=== PATIENT | female | born 1980 | race Caucasian/White ===

== ENCOUNTER 2016-11-21 22:24 | Emergency (ER) | payer SELFPAY ==
[~2016-11-21] VITALS: Ht 162.6 cm; Wt 61.6 kg
[2016-11-21 22:24] VITALS: Ht 162.6 cm; Wt 61.6 kg
[~2016-11-21 22:24] MED LIST: ALBU18HF2 INH; ASPI81TA43 PO; CYAN250010 PO; DOXY100C40 PO; IBUP-1724 PO; MULT-37 PO; NAPR250T2 PO; ONDA4TAB4 PO; ONDA4TAB7 PO; PARO30TA PO; TETR-47 BOTH EYES
--- OUTSIDE RECORDS SUMMARY | 2016-11-21 22:30 | XMS REPORT | Continuity of Care Document ---
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 Role Phone TRACI CROOK MD Primary Care Physician [phone] Insurance Providers Payer Name Policy Number Subscriber Name Relationship Self Pay Insurance Chief Complaint and Reason for Visit Chief Complaint Respiratory Problem Reason for Visit [id number] Otitis externa Pleurisy Problems Medical Problems Problem Onset Date Status Anxiety disorder 03/04/2013 Active Attention deficit hyperactivity disorder 03/04/2013 Active Congenital heart disease 03/18/2013 Active Malaise and fatigue 03/18/2013 Active Pharyngitis Unknown Active Bronchitis Unknown Active Dyspnea Unknown Active Malaise Unknown Active Palpitations Unknown Active Neck sprain Unknown Active minor head injury Unknown Active Anxiety disorder Unknown Active Palpitation (heart) Unknown Active Back pain Unknown Active Back pain Unknown Active Bradycardia Unknown Active Chronic neck pain Unknown Active Dizziness Unknown Active Anemia Unknown Active Sick sinus syndrome Unknown Active Dizziness Unknown Active Arrhythmia Unknown Active Sick sinus syndrome Unknown Active Headache Unknown Active Neck pain Unknown Active Headache Unknown Active Hx of sick sinus syndrome Unknown Active Chest wall pain Unknown Active Trapezius muscle strain Unknown Active Malaise Unknown Active Cough Unknown Active Dizzy Unknown Active Chronic neck pain Unknown Active Malaise Unknown Active Dizziness Unknown Active Chest wall pain Unknown Active History of bradycardia Unknown Active Atypical chest pain Unknown Active Epigastric abdominal pain Unknown Active Atypical chest pain Unknown Active Chronic neck pain Unknown Active URI (upper respiratory infection) Unknown Active Otitis externa Unknown Active Pleurisy Unknown Active URI (upper respiratory infection) Unknown Active Medications Medication Dose Route Sig Days/Qty Instructions Order Date Discontinued Date Status Paroxetine Hcl 20 Mg PO DAILY 30 Qty 05/09/13 06/23/13 Discontinued Paroxetine Hcl 20 Mg PO DAILY 30 Qty 06/23/13 07/22/13 Discontinued Paroxetine Hcl 20 Mg PO DAILY 30 Qty 07/22/13 08/15/13 Discontinued Paroxetine Hcl 20 Mg PO DAILY 30 Qty 08/15/13 08/29/13 Discontinued Paroxetine Hcl 20 Mg PO DAILY 30 Qty 08/29/13 10/01/13 Discontinued Aspirin 81 Mg PO DAILY 09/10/13 Active Multiple Vitamin 1 X PO DAILY 09/10/13 Active Paroxetine Hcl 30 Mg PO DAILY 30 Qty 10/01/13 11/21/13 Discontinued Paroxetine Hcl 30 Mg PO DAILY 30 Qty 11/21/13 12/18/13 Discontinued Paroxetine Hcl 30 Mg PO DAILY 30 Qty 12/18/13 01/09/14 Discontinued Paroxetine Hcl 30 Mg PO DAILY 30 Qty 01/09/14 04/16/14 Discontinued Ciprofloxacin Hcl 500 Mg PO TWICE A DAY For . 7 Days 01/30/14 Discontinued Paroxetine Hcl 30 Mg PO DAILY 30 Qty 04/16/14 05/25/14 Discontinued Tramadol Hcl 1-2 Tab OR Every 6 hours as needed 20 Qty 05/14/14 Discontinued Paroxetine Hcl 30 Mg PO DAILY 30 Qty 05/25/14 07/24/14 Discontinued Tramadol Hcl 1-2 Tab OR Every 6 hours as needed 20 Qty 05/25/14 Discontinued Ibuprofen 600 Mg PO THREE TIMES A DAY 30 Qty 07/01/14 Active Baclofen 10 Mg PO Every 8 hours as needed For spasms/pain 15 Qty 07/24/14 Discontinued Hydrocodone-Acetaminophen 1 Tab PO Every 6 hours as needed For Pain 10 Qty for pain 07/03/14 07/24/14 Discontinued Baclofen 10 Mg PO Every 8 hours as needed For spasms/pain 15 Qty Active Paroxetine Hcl 30 Mg PO DAILY 30 Qty 07/24/14 Active Tramadol Hcl 1-2 Tab OR Every 6 hours as needed 20 Qty 07/24/14 Active Neomycin/Polymyxin/Hydrocort 4 Drop EAR FOUR TIMES DAILY For Otic Infection 7 Days 08/02/14 Active Amoxicillin 500 Mg PO THREE TIMES A DAY For . 10 Days 08/02/14 Active Promethazine/Codeine 5 Ml PO Every 4 hours as needed For Cough 120 Qty 08/02/14 Active Social History Social History Problem Response Recorded Date/Time Hx Alcohol Use No 03/04/2013 12:35pm Smoking Status Never smoker 08/02/2014 1:12pm Query Response Start Date Stop Date Smoking Status Never smoker Hospital Discharge Instructions No hospital discharge instructions. Plan of Care Discharge Date 08/02/14 2:55pm Disposition 01 HOME, SELF-CARE Condition at Discharge Stable Instructions/Education Provided Pleurisy (ED) Otitis Externa (ED) Influenza (ED) Upper Respiratory Infection (ED) Forms Provided Work Release Prescriptions See Medications Section Referrals TRACI CROOK MD Functional Status No functional status results. Allergies, Adverse Reactions, Alerts Allergen Type Severity Reaction Status Last Updated No Known Allergies Active 01/16/14 Immunizations No immunization records. Vital Signs Acute Vital Signs Vital Response Date/Time Blood Pressure 127/68 mm Hg Blood Pressure Mean 87 mm Hg Temperature (Fahrenheit) 97.8 degrees F (96.0 - 99.9) Temperature (Calculated Celsius) 36.89797 degrees C Temperature Source Oral Pulse Pulse Rate (adult) 79 bpm (60 - 100) Pulse Rate: ED 90 bpm Respiratory Rate 20 breaths per minute (10 - 20) Height (Feet) 5 ft Height (Inches) 4 in. Weight (Pounds) 124 lbs Ambulatory Vital Signs Vital Response Date/Time Height 5 ft 4.500 in 01/09/2014 10:36am Weight 108 lbs 01/09/2014 10:36am Blood Pressure 122/80 mm Hg 01/09/2014 10:36am Body Surface Area 1.48 m2 01/09/2014 10:36am Body Mass Index 18.3 kg/m2 01/09/2014 10:36am Results Test Source Date Result Interp. Ref. Range Comments Alanine Aminotransferase (ALT/SGPT) June 07, 2014 10:50am 19 U/L N 5 -40 Albumin June 07, 2014 10:50am 4.0 gm/dL N 3.2-5.0 Albumin/Globulin Ratio June 07, 2014 10:50am 1.3 L 1.4-2.4 Alkaline Phosphatase June 07, 2014 10:50am 63 U/L N 35-125 Anion Gap June 07, 2014 10:50am 9.9 N 6-13 Aspartate Amino Transf (AST/SGOT) June 07, 2014 10:50am 29 U/L N 5- 40 B-Type Natriuretic Peptide December 24, 2013 6:48pm 146 pg/mL H 15-100 BUN/Creatinine Ratio June 07, 2014 10:50am 16.9 Basophils # (Auto) June 07, 2014 10:50am 0.1 K/uL N 0-0.2 Basophils (%) (Auto) June 07, 2014 10:50am 1.7 % H 0-1 Basophils (Manual) May 03, 2013 6:25pm 2.0 % H 0-1 COMMENT: 01 Bedside Troponin I January 16, 2014 10:07am < 0.05 ng/mL 0.00-0.05 <0.05 ng/mL=NORMAL0.05 - 0.40 ng/mL=CARDIAC CONDITION >0.40 ng/mL=SUGGESTS AMI Blood Urea Nitrogen June 07, 2014 10:50am 12 mg/dL N 8-25 Calcium Level June 07, 2014 10:50am 9.4 mg/dL N 8.2-10.6 Carbon Dioxide Level June 07, 2014 10:50am 26 mEq/L N 22-34 Chloride Level June 07, 2014 10:50am 106 mEq/L N 98-116 Cholesterol Level March 18, 2013 11:40am 168 mg/dL N 120-[address] LANDRY FAXED TO DR. CROOK AT 13:00, 03/18/13 BY MARCK. REPORT FAXED TO DR. CROOK AT 13:43, 03/18/13 BY MARCK. Cholesterol Ratio (LDL/HDL) March 18, 2013 11:40am 3.[address] LANDRY FAXED TO DR. CROOK AT 13:00, 03/18/13 BY MARCK. REPORT FAXED TO DR. CROOK AT 13:43, 03/18/13 BY MARCK. Creatine Kinase MB January 09, 2014 11:06am 0.7 ng/mL N 0.0-6.0 Creatinine June 07, 2014 10:50am 0.71 mg/dL L 0.9-1.6 D-Dimer Quantitative (PE/DVT) April 19, 2014 2:40pm 177 ng/mL < 230 Results <230 ng/mL yeild a negativepredictability for DVT or PE Eosinophils # (Auto) June 07, 2014 10:50am 0.1 K/uL N 0-0.8 Eosinophils (%) (Auto) June 07, 2014 10:50am 3.0 % N 0-7.0 Eosinophils (Manual) May 03, 2013 6:25pm 6.0 % N 0-7.0 COMMENT: 01 Globulin June 07, 2014 10:50am 3.0 gm/dL N 2.0-3.0 Glomerular Filtration Rate Calc June 07, 2014 10:50am > 60.00 mL/min MULTIPLY RESULT BY 1.210 IF THE PATIENT IS -AMERICANUnits are mL/ min/1.73 m2 > 60 Normal kidney function 30-59 Moderately decreased kidney function 15-29 Severely decreased kidney function <15 End-stage kidney failure HDL Cholesterol March 18, 2013 11:40am 50 mg/dL N 40-[address] LANDRY FAXED TO DR. CROOK AT 13:00, 03/18/13 BY MARCK. REPORT FAXED TO DR. CROOK AT 13:43, 03/18/13 BY MARCK. Hematocrit June 07, 2014 10:50am 29.5 % L 38.0-47.0 Hemoglobin June 07, 2014 10:50am 9.0 g/dL L 12.0-16.0 Human Chorionic Gonadotropin, Qual April 16, 2014 9:05pm Negative NEGATIVE Immature Blood Cells March 18, 2013 11:40am 0.1 K/uL N 0-0.[address] CROOKFAXED 1228 03/18/13 SSW Immature Granulocyte # (Auto) June 07, 2014 10:50am 0.01 K/uL N 0- 0.40 Immature Granulocyte % (Auto) June 07, 2014 10:50am 0.3 % N 0-0.5 LDL Cholesterol March 18, 2013 11:40am 103 mg/dL H 25-[address] LANDRY FAXED TO DR. CROOK AT 13:00, 03/18/13 BY MARCK. REPORT FAXED TO DR. CROOK AT 13:43, 03/18/13 BY MARCK. Lipase June 07, 2014 10:50am 24 U/L N 8-57 Lymphocytes # (Auto) June 07, 2014 10:50am 1.2 K/uL N 0.9-5.2 Lymphocytes (%) (Auto) June 07, 2014 10:50am 34.1 % N 16.0-44.0 Lymphocytes (Manual) May 03, 2013 6:25pm 30.0 % N 21.0-51.0 COMMENT : 01 Magnesium Level December 22, 2013 11:30pm 2.1 mg/dL N 1.3-2.5 Mean Corpuscular Hemoglobin June 07, 2014 10:50am 23.0 pg L 26.0- 33.0 Mean Corpuscular Hemoglobin Concent June 07, 2014 10:50am 30.5 g/dL L 31.0-36.0 Mean Corpuscular Volume June 07, 2014 10:50am 75.4 fL L 82.0-100.0 Mean Platelet Volume June 07, 2014 10:50am 9.5 fL N 7.0-11.0 Monocytes # (Auto) June 07, 2014 10:50am 0.4 K/uL N 0.16-1.0 Monocytes (%) (Auto) June 07, 2014 10:50am 10.8 % H 2.0-9.0 Monocytes (Manual) May 03, 2013 6:25pm 12.0 % H 2.0-9.0 COMMENT: 01 Morphology Comment May 03, 2013 6:25pm Normal COMMENT: 01 Neutrophils May 03, 2013 6:25pm 50.0 % N 42.0-75.0 COMMENT: 01 Neutrophils # (Auto) June 07, 2014 10:50am 1.8 K/uL L 1.9-8.0 Neutrophils (%) (Auto) June 07, 2014 10:50am 50.1 % N 42.0-75.0 Nucleated Red Blood Cells # June 07, 2014 10:50am 0.00 K/uL N 0.0- 0.012 Nucleated Red Blood Cells % June 07, 2014 10:50am 0.0 /100WBC N 0-0 Platelet Count June 07, 2014 10:50am 258 K/uL N 130-400 Platelet Estimate May 03, 2013 6:25pm Normal NORMAL COMMENT: 01 Potassium Level June 07, 2014 10:50am 3.9 mEq/L N 3.5-5.1 Prothromb Time International Ratio September 03, 2013 10:55am 1.11 L 2.0- 3.0 Prothrombin Time September 03, 2013 10:55am 11.3 SECONDS N 9.0-12.0 RDW Standard Deviation June 07, 2014 10:50am 42.8 fL N 36.4-46.3 Random Glucose June 07, 2014 10:50am 90 mg/dL N 65-115 Red Blood Count June 07, 2014 10:50am 3.91 M/uL L 4.20-5.40 Red Cell Distribution Width June 07, 2014 10:50am 15.6 % H 11.5- 14.5 Sodium Level June 07, 2014 10:50am 138 mEq/L N 133-145 Thyroid Stimulating Hormone (TSH) April 16, 2014 9:05pm 2.65 uIU/ml N 0.34-5.60 Total Bilirubin June 07, 2014 10:50am 0.6 mg/dL N 0.1-1.3 Total Protein June 07, 2014 10:50am 7.0 gm/dL N 6.0-8.4 Triglycerides Level March 18, 2013 11:40am 74 mg/dL N 45-[address] LANDRY FAXED TO DR. CROOK AT 13:00, 03/18/13 BY MARCK. REPORT FAXED TO DR. CROOK AT 13:43, 03/18/13 BY MARCK. Troponin I June 07, 2014 10:50am 0.00 ng/mL N 0.0-0.02 Ur Tetrahydrocannabinol (THC) Scrn April 19, 2014 2:40pm Negative NEGATIVE Ur Tricyclic Antidepressants Screen April 19, 2014 2:40pm Negative NEGATIVE Urine Amorphous Sediment January 27, 2014 11:59pm 1+ SOURCE: URINE, CLEAN CATCH Urine Amphetamines Screen April 19, 2014 2:40pm Negative NEGATIVE Urine Appearance January 27, 2014 11:59pm Cloudy SOURCE: URINE, CLEAN CATCH Urine Bacteria January 27, 2014 11:59pm 3+ /hpf H NONE THIS SPECIMEN MEETS MEDICAL STAFF CRITERIAFOR A URINE CULTURE. A CULTURE HAS BEEN SET. Urine Barbiturates Screen April 19, 2014 2:40pm Negative NEGATIVE Urine Benzodiazepines Screen April 19, 2014 2:40pm Negative NEGATIVE Urine Bilirubin January 27, 2014 11:59pm 1+ NEGATIVE SOURCE: URINE, CLEAN CATCH Urine Casts January 27, 2014 11:59pm None /lpf NONE SOURCE: URINE, CLEAN CATCH Urine Cocaine Screen April 19, 2014 2:40pm Negative NEGATIVE Urine Color January 27, 2014 11:59pm Dk yellow SOURCE: URINE, CLEAN CATCH Urine Crystals January 27, 2014 11:59pm None /hpf NONE SOURCE: URINE, CLEAN CATCH Urine Epithelial Cells January 27, 2014 11:59pm Many /lpf SOURCE: URINE, CLEAN CATCH Urine Glucose (UA) January 27, 2014 11:59pm Negative NEGATIVE SOURCE: URINE, CLEAN CATCH Urine Human Chorionic Gonadotropin January 10, 2014 6:37pm Negative NEGATIVE Urine Ketones January 27, 2014 11:59pm Negative NEGATIVE SOURCE: URINE, CLEAN CATCH Urine Leukocyte Esterase January 27, 2014 11:59pm Trace H NEGATIVE SOURCE : URINE, CLEAN CATCH Urine Methadone Screen April 19, 2014 2:40pm Negative NEGATIVE Urine Methamphetamines Screen April 19, 2014 2:40pm Negative NEGATIVE Urine Mucus January 27, 2014 11:59pm Trace /lpf NONE SOURCE: URINE, CLEAN CATCH Urine Nitrate January 27, 2014 11:59pm Negative NEGATIVE SOURCE: URINE, CLEAN CATCH Urine Occult Blood January 27, 2014 11:59pm 3+ H NEGATIVE SOURCE: URINE, CLEAN CATCH Urine Opiates Screen April 19, 2014 2:40pm Negative NEGATIVE Urine Other January 27, 2014 11:59pm None SOURCE: URINE, CLEAN CATCH Urine Phencyclidine Screen April 19, 2014 2:40pm Negative NEGATIVE Urine Propoxyphene Screen April 19, 2014 2:40pm Negative NEGATIVE Urine Protein January 27, 2014 11:59pm 2+ H NEGATIVE SOURCE: URINE, CLEAN CATCH Urine RBC January 27, 2014 11:59pm 3-5 /hpf H NONE SOURCE: URINE, CLEAN CATCH Urine Specific [place] January 27, 2014 11:59pm 1.025 1.005-1.030 SOURCE : URINE, CLEAN CATCH Urine Urobilinogen January 27, 2014 11:59pm 1.0 E.U./dL 0.2-1.0 SOURCE: URINE, CLEAN CATCH Urine WBC January 27, 2014 11:59pm 25-50 /hpf H NONE THIS SPECIMEN MEETS MEDICAL STAFF CRITERIAFOR A URINE CULTURE. A CULTURE HAS BEEN SET. Urine WBC Clumps January 27, 2014 11:59pm 0-1 /hpf NONE SOURCE: URINE, CLEAN CATCH Urine pH January 27, 2014 11:59pm 6.5 4.5-8.0 SOURCE: URINE, CLEAN CATCH VLDL Cholesterol March 18, 2013 11:40am 14.8 N 5-[address] LANDRY FAXED TO DR. CROOK AT 13:00, 03/18/13 BY MARCK. REPORT FAXED TO DR. CROOK AT 13:43, 03/18/13 BY MARCK. White Blood Count June 07, 2014 10:50am 3.6 K/uL L 5.0-10.0 Urine Culture Urine,Clean Catch January 27, 2014 11:59pm >100,000 CFU/ML MIXED BODY ADITYA AFTE... Procedures Procedure Status Date Provider(s) HYDRATION IV INFUSION INIT completed 04/16/14 ELVIS ALEXANDER M.D. THER/PROPH/DIAG INJ IV PUSH completed 04/19/14 LUZ ELENA SMITH M.D. THER/PROPH/DIAG INJ SC/IM completed 05/15/14 THER/PROPH/DIAG INJ SC/IM completed 05/15/14 THER/PROPH/DIAG INJ IV PUSH completed 06/07/14 ROSALINDA GASPAR M.D. TX/PRO/DX INJ NEW DRUG ADDON completed 06/07/14 RSOALINDA GASPAR M.D. INJ TRIGGER POINT 1/2 MUSCL completed 07/03/14 NEGRO QUIJANO M.D. THER/PROPH/DIAG INJ SC/IM completed 07/03/14 NEGRO QUIJANO M.D. THER/PROPH/DIAG INJ SC/IM completed 07/03/14 NEGRO QUIJANO M.D. THER/PROPH/DIAG INJ SC/IM completed 07/03/14 NEGRO QUIJANO M.D. Introduction of therapeutic substance into soft tissue (procedure) completed 07/03/14 NEGRO QUIJANO M.D. THER/PROPH/DIAG INJ IV PUSH completed 09/03/13 NEGRO QUIJANO M.D. TX/PRO/DX INJ NEW DRUG ADDON completed 09/03/13 NEGRO QUIJANO M.D. HYDRATE IV INFUSION ADD-ON completed 09/03/13 NEGRO QUIJANO M.D. HYDRATE IV INFUSION ADD-ON completed 09/03/13 NEGRO QUIJANO M.D. THER/PROPH/DIAG INJ SC/IM completed 11/11/13 NEGRO QUIJANO M.D. THER/PROPH/DIAG INJ SC/IM completed 11/16/13 NEGRO QUIJANO M.D. THER/PROPH/DIAG INJ SC/IM completed 11/16/13 NEGRO QUIJANO M.D. THER/PROPH/DIAG INJ SC/IM completed 11/16/13 NEGRO QUIJANO M.D. THER/PROPH/DIAG INJ SC/IM completed 11/21/13 KARMEN MALHOTRA M.D. THER/PROPH/DIAG INJ IV PUSH completed 12/11/13 HENRRY SARGENT M.D. TX/PRO/DX INJ NEW DRUG ADDON completed 12/11/13 HENRRY SARGENT M.D. Gynecologic examination (procedure) completed 12/15/13 CHIRAG CAMARENA M.D. THER/PROPH/DIAG INJ IV PUSH completed 12/22/13 NEGRO QUIJANO M.D. TX/PRO/DX INJ NEW DRUG ADDON completed 12/22/13 NEGRO QUIJANO M.D. HYDRATE IV INFUSION ADD-ON completed 12/22/13 NEGRO QUIJANO M.D. THER/PROPH/DIAG INJ IV PUSH completed 12/24/13 LUZ ELENA SMITH M.D. HYDRATE IV INFUSION ADD-ON completed 12/24/13 LUZ ELENA SMITH M.D. THER/PROPH/DIAG IV INF INIT completed 01/10/14 CHIRAG CAMARENA M.D. TX/PRO/DX INJ NEW DRUG ADDON completed 01/10/14 CHIRAG CAMARENA M.D. THER/PROPH/DIAG INJ IV PUSH completed 01/16/14 LUZ ELENA SMITH M.D. TX/PRO/DX INJ NEW DRUG ADDON completed 01/16/14 LUZ ELENA SMITH M.D. TX/PRO/DX INJ NEW DRUG ADDON completed 01/16/14 LUZ ELENA SMITH M.D. THER/PROPH/DIAG INJ SC/IM completed 04/08/14 HERO DOSS D.O. Encounters Encounter [facility] Date[facility] Departed Emergency Room [facility] 07/03/14 10:05pm Departed Emergency Room [facility] 06/07/14 10:34am Departed Emergency Room [facility] 05/15/14 10:44am Registered Clinic [facility] 04/23/14 10:28am Departed Emergency Room [facility] 04/22/14 12:26am Departed Emergency Room [facility] 04/19/14 2:00pm Departed Emergency Room [facility] 04/16/14 8:01pm Departed Emergency Room [facility] 04/13/14 5:01pm Departed Emergency Room [facility] 04/08/14 2:51pm Departed Emergency Room [facility] 03/02/14 1:55am Departed Emergency Room [facility] 01/29/14 11:26pm Departed Emergency Room [facility] 01/27/14 11:34pm Departed Emergency Room [facility] 01/25/14 6:23pm Registered Clinic [facility] 01/22/14 10:26am Departed Emergency Room [facility] 01/16/14 9:42am Departed Emergency Room [facility] 01/10/14 5:56pm Departed Emergency Room [facility] 01/09/14 11:54am Office Visit TRACI CROOK 01/09/14 10:30am Departed Emergency Room [facility] 01/08/14 8:00pm Departed Emergency Room [facility] 12/24/13 6:10pm Departed Emergency Room [facility] 12/22/13 9:50pm Departed Emergency Room [facility] 12/15/13 11:32am Departed Emergency Room [facility] 12/11/13 10:06pm Registered Clinic [facility] 11/21/13 11:19am Departed Emergency Room [facility] 11/16/13 8:55pm Departed Emergency Room [facility] 04/22/14 4:43pm Departed Emergency Room [facility] 11/05/13 4:02pm Office Visit TRACI CHILDSS 10/10/13 11:30am Departed Emergency Room [facility] 10/09/13 8:57am Departed Emergency Room [facility] 10/03/13 2:43am Departed Emergency Room [facility] 09/10/13 7:03pm Departed Emergency Room [facility] 09/03/13 10:42am Departed Emergency Room [facility] 08/04/13 9:16am Recent Diagnosis
--- OUTSIDE RECORDS SUMMARY | 2016-11-21 22:30 | XMS REPORT | Continuity of Care Document ---
Author Author [facility] Organization [facility] Address Unknown Phone Unavailable Support Name Relationship Address Phone SANJAY MAGALLON MD Caregiver [address] [place] [address] Unavailable YOLY COWAN Next Of Kin [address] [phone] Insurance Providers Guarantor RosettaLisa mijares Address [address] [address] Email [email or web address] Payer Self Pay Subscriber's Name Lisa Walters Relationship 18 Self Advance Directives Directive Response Recorded Date/Time Advanced Directives Type None 07/10/16 9:55pm Chief Complaint and Reason for Visit Chief Complaint Cough,Fever,Flu,URI Reason for Visit Bronchitis Problems Active Problems Medical Problem Onset Date Status Abdominal pain, left lower quadrant Unknown Acute Anemia Unknown Acute Bronchitis Unknown Acute Chest wall pain Unknown Acute Iron deficiency anemia Unknown Acute Pain, dental Unknown Acute URI, acute Unknown Acute Urinary tract infection Unknown Acute Medications Current Home Medications Medication Dose Units Route Directions Days Qty Instructions Start Date Albuterol Sulfate (Ventolin Hfa 90 Mcg/Actuation) 18 Gm Hfa.aer.ad 1 Puff Inhalation As Needed as needed for Asthma 05/26/15 Aspirin (Aspir-Low) 81 Mg Tablet.dr 81 Mg Oral Daily 05/26/15 Cyanocobalamin (Vitamin B-12) (Vitamin B12) 2,500 Mcg Tablet 2,500 Mcg Oral Daily 06/26/15 Doxycycline Monohydrate 100 Mg Capsule 1 Cap Oral Twice A Day 20 Capsule 07/10/16 Ibuprofen 200 Mg Tablet 2 Tab Oral Every 4 Hours as needed for Pain 08/18/15 Multivitamin (Daily Multiple Vitamin) 1 Each Tablet 1 Tab Oral Daily 05/26/15 Naproxen 250 Mg Tablet 250 Mg Oral Daily as needed for Pain 06/26 Ondansetron (Zofran Odt) 4 Mg Tab.rapdis 4 Mg Oral Q6h/0300,0900,1500,2100 for Nausea &/Or Vomiting 10 Tablet Oral disintegrating tablet 07/10/16 Ondansetron Hcl (Zofran) 4 Mg Tablet 4 Mg Oral Every 8 Hours as needed for Nausea 10 Tablet 08/18/15 Paroxetine Hcl (Paxil) 30 Mg Tablet 30 Mg Oral Daily 05/26/15 Tetrahydrozoline Hcl (Eye Drops) 15 Ml Drops 1 Drop Both Eyes As Needed as needed for Dry Eyes 05/26/15 Social History Social History Problem Response Recorded Date/Time Onset Date Status Hx Substance Use No 07/10/2016 10:00pm Not Applicable Not Applicable Hx Alcohol Use Y SOCIALLY 07/10/2016 10:00pm Not Applicable Not Applicable Tobacco Usage none 08/01/2015 10:42pm Not Applicable Not Applicable Query Response Start Date Stop Date Smoking Status Unknown if ever smoked Hospital Discharge Instructions No hospital discharge instructions. Plan of Care Discharge Date 07/10/16 11:00pm Disposition 01 DISCHARGED HOME, SELF-CARE Condition at Discharge Stable Instructions/Education Provided DI for Acute Bronchitis Prescriptions See Medication Section Referrals Gumaro SCHERER MD Address: [address] [place] [id number] Note: Follow-up with Dr. scherer next week if not improved Additional Instructions/Education Contact information for Dr. Smith ; [phone]. Functional Status No functional status results. Allergies, Adverse Reactions, Alerts Allergen Type Severity Reaction Status Last Updated Vancomycin Allergy Unknown Active 07/10/16 Immunizations Query Response on File Recorded Date/Time DTaP Vaccine History UTD 07/10/16 10:00pm Influenza Vaccine Hx 201407/10/16 10:00pm Vital Signs Acute Vital Signs Vital Response Date/Time Temperature (Fahrenheit) 98.3 deg F (96.8 - 99.1) 07/10/2016 11:00pm Temperature (Calculated Celsius) 36.70893 degrees C (36.0 - 37.3) 07/10/2016 11:00pm Pulse Rate (adult) 62 bpm (60 - 100) 07/10/2016 11:00pm Respiratory Rate 16 breaths/min (10 - 20) 07/10/2016 11:00pm O2 Sat by Pulse Oximetry 98 % (90 - 100) 07/10/2016 11:00pm Blood Pressure 137/89 mm Hg 07/10/2016 11:00pm Height (Feet) 5 feet 07/10/2016 9:55pm Height (Inches) 5.00 inches 07/10/2016 9:55pm Weight (Kilograms) 62.700 kg 07/10/2016 9:55pm Body Mass Index (BMI) 23.0 07/10/2016 9:55pm Results No known relevant diagnostic tests, laboratory data and/or discharge summary. Procedures No known history of procedures. Encounters Encounter Location Arrival/Admit Date Discharge/Depart Date Attending Provider Departed Emergency Room [facility] 07/10/16 9:48pm 07/10/16 11: 00pm SANJAY MAGALLON MD Recent Diagnosis
--- OUTSIDE RECORDS SUMMARY | 2016-11-21 22:30 | XMS REPORT | Continuity of Care Document ---
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 Classified Ad Clerk Name Role Phone TRACI CROOK MD Unavailable [phone] Insurance Providers Payer Name Policy Number Subscriber Name Relationship Self Pay Insurance Chief Complaint and Reason for Visit Chief Complaint Hematuria Reason for Visit Hematuria Urinary tract infection Problems Medical Problems Problem Onset Date Status [...] Unknown Active Chest wall pain Unknown Active Medications Medication Dose Route Sig [...] PO DAILY 30 Qty 08/29/13 10/01/13 Discontinued Albuterol Sulfate 2-4 Puffs IN Every 4 hours as needed 1 Qty 09/03/13 Active Aspirin 81 Mg PO DAILY 09/10/13 Active Multiple Vitamin 1 X PO DAILY 09/10/13 Active Paroxetine Hcl 30 Mg PO DAILY 30 Qty 10/01/13 11/21/13 Discontinued Paroxetine Hcl 30 Mg PO DAILY 30 Qty 11/21/13 12/18/13 Discontinued Paroxetine Hcl 30 Mg PO DAILY 30 Qty 12/18/13 01/09/14 Discontinued Paroxetine Hcl 30 Mg PO DAILY 30 Qty 01/09/14 Active Promethazine Hcl 25 Mg PO THREE TIMES A DAY 14 Qty 01/09/14 Active Sulfamethoxazole-Trimethoprim 1 Tab PO TWICE A DAY 14 Qty 01/28/14 Active Phenazopyridine Hcl 100 Mg OR THREE TIMES A DAY 9 Qty 01/28/14 Active Social History Social History Problem Response Recorded Date/Time Hx Alcohol Use No 03/04/2013 12:35pm Smoking Status Never smoker 01/27/2014 11:38pm Query Response Start Date Stop Date Smoking Status Never smoker Hospital Discharge Instructions No hospital discharge instructions. Plan of Care Discharge Date 01/28/14 12:47am Disposition 01 HOME, SELF-CARE Condition at Discharge Stable Prescriptions See Medications Section Referrals TRACI CROOK MD Functional Status No functional status results. Allergies, Adverse Reactions, Alerts Allergen Type Severity Reaction Status Last Updated No Known Allergies Active 01/16/14 Immunizations No immunization records. Vital Signs Acute Vital Signs Vital Response Date/Time Blood Pressure 117/75 mm Hg 01/28/2014 12:25am Blood Pressure Mean 89 mm Hg 01/28/2014 12:25am Pulse 01/28/2014 12:25am Pulse Rate: ED 60 bpm 01/28/2014 12:25am Respiratory Rate 16 breaths per minute (10 - 20) 01/28/2014 12:25am Ambulatory Vital Signs Vital Response Date/Time Height 5 ft 4.500 in 01/09/2014 10:36am Weight 108 lbs 01/09/2014 10:36am Blood Pressure 122/80 mm Hg 01/09/2014 10:36am Body Surface Area 1.48 m2 01/09/2014 10:36am Body Mass Index 18.3 kg/m2 01/09/2014 10:36am Results No known relevant diagnostic tests, laboratory data and/or discharge summary. Procedures No known history of procedures. Encounters Encounter [facility] Date[facility] 6:23pm Registered Clinic [facility] 01/22/14 10:26am Departed Emergency Room [facility] 01/16/14 9:42am Departed Emergency Room [facility] 01/10/14 5:56pm Departed Emergency Room [facility] 01/09/14 11:54am Office Visit TRACI CROOK 01/09/14 10:30am Departed Emergency Room [facility] 01/08/14 8:00pm Departed Emergency Room [facility] 12/24/13 6:10pm Departed Emergency Room [facility] 12/22/13 9:50pm Departed Emergency Room [facility] 12/15/13 11:32am Departed Emergency Room [facility] 12/11/13 10:06pm Registered Clinic [facility] 11/21/13 11:19am Departed Emergency Room [facility] 11/16/13 8:55pm Departed Emergency Room [facility] 11/11/13 4:43pm Departed Emergency Room [facility] 11/05/13 4:02pm Office Visit TRACI CROOK 10/10/13 11:30am Departed Emergency Room [facility] 10/09/13 8:57am Departed Emergency Room [facility] 10/03/13 2:43am Departed Emergency Room [facility] 09/10/13 7:03pm Departed Emergency Room [facility] 09/03/13 10:42am Departed Emergency Room [facility] 08/04/13 9:16am Office Visit TRACI CROOK 07/08/13 2:15pm Office Visit TRACI CROOK 06/24/13 3:45pm Office Visit TRACI CROOK 05/13/13 2:00pm Departed Emergency Room [facility] 05/03/13 5:49pm Office Visit TRACI CROOK 03/18/13 11:15am Office Visit TRACI CROOK 03/04/13 11:15am Recent Diagnosis Hematuria Urinary tract infection
--- OUTSIDE RECORDS SUMMARY | 2016-11-21 22:31 | XMS REPORT | Continuity of Care Document ---
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 Girls Swimming Coach Name Role Phone TRACI CROOK MD Unavailable [phone] Insurance Providers Payer Name Policy Number Subscriber Name Relationship Self Pay Insurance Chief Complaint and Reason for Visit Chief Complaint Upper Respiratory Problem Reason for Visit Cough Sinusitis Problems Medical Problems Problem Onset Date Status [...] Mg PO DAILY 30 Qty 01/09/14 Active Tramadol Hcl 1-2 Tab PO Every 6 hours as needed 30 Qty 01/09/14 Active Oxycodone/Acetaminophen 1-2 Ea PO THREE TIMES A DAY 20 Qty for pain 01/09 Active Promethazine Hcl 25 Mg PO THREE TIMES A DAY 14 Qty 01/09/14 Active Indomethacin 50 Mg PO TWICE A DAY 60 Qty 01/16/14 Active Fluticasone Propionate 1 Pinon NA TWICE A DAY 1 Qty 01/25/14 Active Loratadine 10 Mg PO DAILY 30 Qty 01/25/14 Active Azithromycin 250 Mg PO DAILY 4 Qty 01/25/14 Active Social History Social History Problem Response Recorded Date/Time Hx Alcohol Use No 03/04/2013 12:35pm Smoking Status Never smoker 01/25/2014 6:31pm Query Response Start Date Stop Date Smoking Status Never smoker Hospital Discharge Instructions No hospital discharge instructions. Plan of Care Discharge Date 01/25/14 7:25pm Disposition 01 HOME, SELF-CARE Condition at Discharge Stable Prescriptions See Medications Section Referrals TRACI CROOK MD Functional Status No functional status results. Allergies, Adverse Reactions, Alerts Allergen Type Severity Reaction Status Last Updated No Known Allergies Active 01/16/14 Immunizations No immunization records. Vital Signs Acute Vital Signs Vital Response Date/Time Blood Pressure 112/64 mm Hg 01/25/2014 7:18pm Blood Pressure Mean 80 mm Hg 01/25/2014 7:18pm Pulse 01/25/2014 7:18pm Pulse Rate: ED 80 bpm 01/25/2014 7:18pm Respiratory Rate 18 breaths per minute (10 - 20) 01/25/2014 7:18pm Ambulatory Vital Signs Vital Response Date/Time Height 5 ft 4.500 in 01/09/2014 10:36am Weight 108 lbs 01/09/2014 10:36am Blood Pressure 122/80 mm Hg 01/09/2014 10:36am Body Surface Area 1.48 m2 01/09/2014 10:36am Body Mass Index 18.3 kg/m2 01/09/2014 10:36am Results No known relevant diagnostic tests, laboratory data and/or discharge summary. Procedures No known history of procedures. Encounters Encounter Location Date/Time Departed Emergency Room [facility] 01/25/14 6:23pm Reg[facility] 01/22/14 10:26am Departed Emergency Room [facility] 01/16/14 9:42[facility]/10[facility]14 5:56[facility] 01/09/14 11:54am Office Visit TRACI CROOK 01/09/14 10:30am Departed Emergency Room [facility] 01/08/14 8:00pm Departed Emergency Room [facility] 12/24/13 6:10pm Departed Emergency Room [facility] 12/22/13 9:50pm [facility] 12/15/13 11:32am Departed Emergency Room [facility] 12/11/13 10:06pm [facility] 11/21/13 11:19am Departed Emergency Room [facility] 11/16/13 8:55pm Departed Emergency Room [facility] 11/11/13 4:43pm [facility] 11/05/13 4:02pm Office Visit TRACI CROOK 10/10/13 11:30am Departed Emergency Room [facility] 10/09/13 8:57am Departed Emergency Room [facility] 10/03/13 2:43am Departed Emergency Room [facility] 09/10/13 7:03pm Departed Emergency Room [facility] 09/03/13 10:42am Departed Emergency Room [facility] 08/04/13 9:16am Office Visit TRACI CROOK 07/08/13 2:15pm Office Visit TRACI CROOK 06/24/13 3:45pm Office Visit TRACI CROOK 05/13/13 2:00pm Departed Emergency Room [facility] 05/03/13 5:49pm Office Visit TRACI CROOK 03/18/13 11:15am Office Visit TRACI CROOK 03/04/13 11:15am Recent Diagnosis Cough Sinusitis
--- OUTSIDE RECORDS SUMMARY | 2016-11-21 22:31 | XMS REPORT | Continuity of Care Document ---
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 Armored Car Driver Name Role Phone TRACI CROOK MD Primary Care Physician [phone] Insurance Providers Payer Name Policy Number Subscriber Name Relationship Self Pay Insurance Lisa Walters Sumeet 01 Self / Same As Patient Chief Complaint and Reason for Visit Chief Complaint Dizziness Reason for Visit Dizziness Chronic anemia Problems Medical Problems Problem Onset Date Status [...] Active URI (upper respiratory infection) Unknown Active Electrical shock sensation Unknown Active Weakness Unknown Active Electrical shock sensation Unknown Active Toe fracture, right Unknown Active Electrical shock sensation Unknown Active Chronic anemia Unknown Active Medications Medication Dose Route Sig [...] 10 Qty for pain 07/03/14 07/24/14 Discontinued Paroxetine Hcl 30 Mg PO DAILY 30 Qty 07/24/14 Active Neomycin/Polymyxin/Hydrocort 4 Drop EAR FOUR TIMES DAILY For Otic Infection 7 Days 08/02/14 08/10/14 Discontinued Ferrous Sulfate 325 Mg PO TWICE A DAY For . 30 Days 09/14/14 Active Social History Social History Problem Response Recorded Date/Time Hx Alcohol Use No 03/04/2013 12:35pm Smoking Status Never smoker 09/14/2014 8:00am Query Response Start Date Stop Date Smoking Status Never smoker Hospital Discharge Instructions No hospital discharge instructions. Plan of Care Discharge Date 09/14/14 9:32am Disposition 01 HOME, SELF-CARE Condition at Discharge Stable Instructions/Education Provided Iron Deficiency Anemia (GEN) Weakness (ED) Forms Provided Work Release Prescriptions See Medications Section Referrals TRACI CROOK MD Additional Instructions/Education make sure to see for followup you have a mild chronic anemia that is probably related to low iron, make sure to have this monitored with your doctor Functional Status No functional status results. Allergies, Adverse Reactions, Alerts Allergen Type Severity Reaction Status Last Updated Vancomycin Allergy Mild RASH, REDNESS Active 09/02/14 Poison Adina/Poison Vass Extract Allergy Unknown Active 09/02/14 Immunizations No immunization records. Vital Signs Acute Vital Signs Vital Response Date/Time Blood Pressure 128/71 mm Hg Blood Pressure Mean 90 mm Hg Temperature (Fahrenheit) 97.8 degrees F (96.0 - 99.9) Temperature (Calculated Celsius) 36.91010 degrees C Temperature Source Oral Pulse Pulse Rate (adult) 79 bpm (60 - 100) Pulse Rate: ED 64 bpm Respiratory Rate 20 breaths per minute (10 - 20) Height (Feet) 5 ft Height (Inches) 4 in. Weight (Pounds) 130 lbs Ambulatory Vital Signs Vital Response Date/Time Height 5 ft 4.500 in 01/09/2014 10:36am Weight 108 lbs 01/09/2014 10:36am Blood Pressure 122/80 mm Hg 01/09/2014 10:36am Body Surface Area 1.48 m2 01/09/2014 10:36am Body Mass Index 18.3 kg/m2 01/09/2014 10:36am Results Test Source Date Result Interp. Ref. Range Comments Alanine Aminotransferase (ALT/SGPT) September 14, 2014 8:20am 30 U/L N 5- 40 Albumin September 14, 2014 8:20am 4.6 gm/dL N 3.2-5.0 Albumin/Globulin Ratio September 14, 2014 8:20am 1.2 L 1.4-2.4 Alkaline Phosphatase September 14, 2014 8:20am 85 U/L N 35-125 Anion Gap September 14, 2014 8:20am 12.5 N 6-13 Aspartate Amino Transf (AST/SGOT) September 14, 2014 8:20am 29 U/L N 5- 40 B-Type Natriuretic Peptide December 24, 2013 6:48pm 146 pg/mL H 15-100 BUN/Creatinine Ratio September 14, 2014 8:20am 20.0 Basophils # (Auto) September 14, 2014 8:20am 0.1 K/uL N 0-0.2 Basophils (%) (Auto) September 14, 2014 8:20am 1.1 % H 0-1 Basophils (Manual) May 03, 2013 6:25pm 2.0 % H 0-1 COMMENT: 01 Bedside Troponin I January 16, 2014 10:07am < 0.05 ng/mL 0.00-0.05 <0.05 ng/mL=NORMAL0.05 - 0.40 ng/mL=CARDIAC CONDITION >0.40 ng/mL=SUGGESTS AMI Blood Urea Nitrogen September 14, 2014 8:20am 14 mg/dL N 8-25 Calcium Level September 14, 2014 8:20am 9.8 mg/dL N 8.2-10.6 Carbon Dioxide Level September 14, 2014 8:20am 27 mEq/L N 22-34 Chloride Level September 14, 2014 8:20am 102 mEq/L N 98-116 Cholesterol Level March 18, [...] 2014 11:06am 0.7 ng/mL N 0.0-6.0 Creatinine September 14, 2014 8:20am 0.70 mg/dL L 0.9-1.6 D-Dimer Quantitative (PE/DVT) April 19, 2014 2:40pm 177 ng/mL < 230 Results <230 ng/mL yeild a negativepredictability for DVT or PE Eosinophils # (Auto) September 14, 2014 8:20am 0.2 K/uL N 0-0.8 Eosinophils (%) (Auto) September 14, 2014 8:20am 3.9 % N 0-7.0 Eosinophils (Manual) May 03, 2013 6:25pm 6.0 % N 0-7.0 COMMENT: 01 Globulin September 14, 2014 8:20am 3.9 gm/dL H 2.0-3.0 Glomerular Filtration Rate Calc September 14, 2014 8:20am > 60.00 mL/min MULTIPLY RESULT BY 1.210 [...] CROOK AT 13:43, 03/18/13 BY MARCK. Hematocrit September 14, 2014 8:20am 34.5 % L 38.0-47.0 Hemoglobin September 14, 2014 8:20am 10.3 g/dL L 12.0-16.0 Human Chorionic Gonadotropin, Qual April 16, 2014 9:05pm Negative NEGATIVE Immature Blood Cells March 18, 2013 11:40am 0.1 K/uL N 0-0.[address] CROOKFAXED 1228 03/18/13 SSW Immature Granulocyte # (Auto) September 14, 2014 8:20am 0 K/uL N 0-0.40 Immature Granulocyte % (Auto) September 14, 2014 8:20am 0 % N 0-0.5 LDL Cholesterol March 18, 2013 11:40am 103 mg/dL H 25-[address] LANDRY FAXED TO DR. CROOK AT 13:00, 03/18/13 BY MARCK. REPORT FAXED TO DR. CROOK AT 13:43, 03/18/13 BY KJ. Lipase June 07, 2014 10:50am 24 U/L N 8-57 Lymphocytes # (Auto) September 14, 2014 8:20am 1.7 K/uL N 0.9-5.2 Lymphocytes (%) (Auto) September 14, 2014 8:20am 36.6 % N 16.0-44.0 Lymphocytes (Manual) May 03, 2013 6:25pm 30.0 % N 21.0-51.0 COMMENT : 01 Magnesium Level December 22, 2013 11:30pm 2.1 mg/dL N 1.3-2.5 Mean Corpuscular Hemoglobin September 14, 2014 8:20am 21.7 pg L 26.0- 33.0 Mean Corpuscular Hemoglobin Concent September 14, 2014 8:20am 29.9 g/dL L 31.0-36.0 Mean Corpuscular Volume September 14, 2014 8:20am 72.6 fL L 82.0-100.0 Mean Platelet Volume September 14, 2014 8:20am 9.5 fL N 7.0-11.0 Monocytes # (Auto) September 14, 2014 8:20am 0.4 K/uL N 0.16-1.0 Monocytes (%) (Auto) September 14, 2014 8:20am 8.6 % N 2.0-9.0 Monocytes (Manual) May 03, 2013 6:25pm 12.0 % H 2.0-9.0 COMMENT: 01 Morphology Comment May 03, 2013 6:25pm Normal COMMENT: 01 Neutrophils May 03, 2013 6:25pm 50.0 % N 42.0-75.0 COMMENT: 01 Neutrophils # (Auto) September 14, 2014 8:20am 2.3 K/uL N 1.9-8.0 Neutrophils (%) (Auto) September 14, 2014 8:20am 49.8 % N 42.0-75.0 Nucleated Red Blood Cells # September 14, 2014 8:20am 0.00 K/uL N 0.0- 0.012 Nucleated Red Blood Cells % September 14, 2014 8:20am 0.0 /100WBC N 0-0 Platelet Count September 14, 2014 8:20am 345 K/uL N 130-400 Platelet Estimate May 03, 2013 6:25pm Normal NORMAL COMMENT: 01 Potassium Level September 14, 2014 8:20am 4.5 mEq/L N 3.5-5.1 Prothromb Time International Ratio September 03, 2013 10:55am 1.11 L 2.0- 3.0 Prothrombin Time September 03, 2013 10:55am 11.3 SECONDS N 9.0-12.0 RDW Standard Deviation September 14, 2014 8:20am 43.4 fL N 36.4-46.3 Random Glucose September 14, 2014 8:20am 117 mg/dL H 65-115 Red Blood Count September 14, 2014 8:20am 4.75 M/uL N 4.20-5.40 Red Cell Distribution Width September 14, 2014 8:20am 16.7 % H 11.5-14.5 Sodium Level September 14, 2014 8:20am 137 mEq/L N 133-145 Thyroid Stimulating Hormone (TSH) September 14, 2014 8:20am 1.94 uIU/ml N 0.34-5.60 Total Bilirubin September 14, 2014 8:20am 0.7 mg/dL N 0.1-1.3 Total Protein September 14, 2014 8:20am 8.5 gm/dL H 6.0-8.4 Triglycerides Level March 18, 2013 11:40am 74 mg/dL N 45-[address] LANDRY FAXED TO DR. CROOK AT 13:00, 03/18/13 BY MARCK. REPORT FAXED TO DR. CROOK AT 13:43, 03/18/13 BY MARCK. Troponin I September 14, 2014 8:20am 0.00 ng/mL N 0.0-0.02 Ur Tetrahydrocannabinol (THC) Scrn April 19, 2014 2:40pm Negative NEGATIVE Ur Tricyclic Antidepressants Screen April 19, 2014 2:40pm Negative NEGATIVE Urine Amorphous Sediment January 27, 2014 11:59pm 1+ SOURCE: URINE, CLEAN CATCH Urine Amphetamines Screen April 19, 2014 2:40pm Negative NEGATIVE Urine Appearance September 14, 2014 8:20am Clear SOURCE: URINE, CLEAN CATCH Urine Bacteria January 27, 2014 11:59pm 3+ /hpf H NONE THIS SPECIMEN MEETS MEDICAL STAFF CRITERIAFOR A URINE CULTURE. A CULTURE HAS BEEN SET. Urine Barbiturates Screen April 19, 2014 2:40pm Negative NEGATIVE Urine Benzodiazepines Screen April 19, 2014 2:40pm Negative NEGATIVE Urine Bilirubin September 14, 2014 8:20am Negative NEGATIVE SOURCE: URINE, CLEAN CATCH Urine Casts January 27, 2014 11:59pm None /lpf NONE SOURCE: URINE, CLEAN CATCH Urine Cocaine Screen April 19, 2014 2:40pm Negative NEGATIVE Urine Color September 14, 2014 8:20am Yellow SOURCE: URINE, CLEAN CATCH Urine Crystals January 27, 2014 11:59pm None /hpf NONE SOURCE: URINE, CLEAN CATCH Urine Epithelial Cells January 27, 2014 11:59pm Many /lpf SOURCE: URINE, CLEAN CATCH Urine Glucose (UA) September 14, 2014 8:20am Negative NEGATIVE SOURCE : URINE, CLEAN CATCH Urine Human Chorionic Gonadotropin September 14, 2014 8:20am Negative NEGATIVE Urine Ketones September 14, 2014 8:20am Negative NEGATIVE SOURCE: URINE, CLEAN CATCH Urine Leukocyte Esterase September 14, 2014 8:20am Negative NEGATIVE SOURCE: URINE, CLEAN CATCH Urine Methadone Screen April 19, 2014 2:40pm Negative NEGATIVE Urine Methamphetamines Screen April 19, 2014 2:40pm Negative NEGATIVE Urine Mucus January 27, 2014 11:59pm Trace /lpf NONE SOURCE: URINE, CLEAN CATCH Urine Nitrate September 14, 2014 8:20am Negative NEGATIVE SOURCE: URINE, CLEAN CATCH Urine Occult Blood September 14, 2014 8:20am Negative NEGATIVE SOURCE : URINE, CLEAN CATCH Urine Opiates Screen April 19, 2014 2:40pm Negative NEGATIVE Urine Other January 27, 2014 11:59pm None SOURCE: URINE, CLEAN CATCH Urine Phencyclidine Screen April 19, 2014 2:40pm Negative NEGATIVE Urine Propoxyphene Screen April 19, 2014 2:40pm Negative NEGATIVE Urine Protein September 14, 2014 8:20am Negative NEGATIVE SOURCE: URINE, CLEAN CATCH Urine RBC January 27, 2014 11:59pm 3-5 /hpf H NONE SOURCE: URINE, CLEAN CATCH Urine Specific [place] September 14, 2014 8:20am >=1.030 1.005-1.030 SOURCE: URINE, CLEAN CATCH Urine Urobilinogen September 14, 2014 8:20am 0.2 E.U./dL 0.2-1.0 SOURCE: URINE, CLEAN CATCH Urine WBC January 27, 2014 11:59pm 25-50 /hpf H NONE THIS SPECIMEN MEETS MEDICAL STAFF CRITERIAFOR A URINE CULTURE. A CULTURE HAS BEEN SET. Urine WBC Clumps January 27, 2014 11:59pm 0-1 /hpf NONE SOURCE: URINE, CLEAN CATCH Urine pH September 14, 2014 8:20am 6.0 4.5-8.0 SOURCE: URINE, CLEAN CATCH VLDL Cholesterol March 18, 2013 11:40am 14.8 N 5-[address] LANDRY FAXED TO DR. CROOK AT 13:00, 03/18/13 BY MARCK. REPORT FAXED TO DR. CROOK AT 13:43, 03/18/13 BY MARCK. White Blood Count September 14, 2014 8:20am 4.6 K/uL L 5.0-10.0 Urine Culture Urine,Clean Catch [...] TX/PRO/DX INJ NEW DRUG ADDON completed 06/07/14 ROSALINDA GASPAR M.D. INJ TRIGGER POINT 1/2 MUSCL [...] Encounters Encounter Location Date/Time Departed Emergency Room [facility] 09/14/14 8:03am Departed Emergency Room [facility] 09/02/14 2:56pm Departed Emergency Room [facility] 08/02/14 1:09pm Departed Emergency Room [facility] 07/03/14 10:05pm Departed Emergency Room [facility] 06/07/14 10:34am Departed Emergency Room [facility] 05/15/14 10:44am Registered Clinic [facility] 04/23/14 10:28am Departed Emergency Room [facility] 04/22/14 12:26am Departed Emergency Room [facility] 04/19/14 2:00pm Departed Emergency Room [facility] 04/16/14 8:01pm Departed Emergency Room [facility] 04/13/14 5:01pm Departed Emergency Room [facility] 04/08/14 2:51pm Departed Emergency Room [facility] 03/02/14 1:55am Departed Emergency Room [facility] 01/29/14 11:26pm Departed Emergency Room [facility] 01/27/14 11:34pm Departed Emergency Room [facility] 01/25/14 6:23pm Registered Clinic [facility] 01/22/14 10:26am Departed Emergency Room [facility] 01/16/14 9:42am Departed Emergency Room [facility] 01/10/14 5:56pm Departed Emergency Room [facility] 01/09/14 11:54am Office Visit TRACI CROOK 01/09/14 10:30am Departed Emergency Room [facility] 01/08/14 8:00pm Departed Emergency Room [facility] 12/24/13 6:10pm Departed Emergency Room [facility] 12/22/13 9:50pm Departed Emergency Room [facility] 12/15/13 11:32am Departed Emergency Room [facility] 12/11/13 10:06pm Registered Clinic [facility] 11/21/13 11:19am Departed Emergency Room [facility] 11/16/13 8:55pm Departed Emergency Room [facility] 11/11/13 4:43pm Departed Emergency Room [facility] 11/05/13 4:02pm Office Visit TRACI CROOK 10/10/13 11:30am Departed Emergency Room [facility] 10/09/13 8:57am Departed Emergency Room [facility] 10/03/13 2:43am Recent Diagnosis Dizziness
--- OUTSIDE RECORDS SUMMARY | 2016-11-21 22:31 | XMS REPORT | Continuity of Care Document ---
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 Clarifier Operator Helper Name Role Phone TRACI CROOK MD Primary Care Physician [phone] Insurance Providers Payer Name Policy Number Subscriber Name Relationship Self Pay Insurance Vel Waltersigettbrittany Fay 01 Self / Same As Patient Chief Complaint and Reason for Visit Chief Complaint Abdominal Pain Reason for Visit Anemia Chronic abdominal pain Problems Medical Problems Problem Onset Date Status [...] sensation Unknown Active Chronic anemia Unknown Active Atypical chest pain Unknown Active Hematuria Unknown Active Abdominal pain Unknown Active Constipation Unknown Active Hematuria Unknown Active Urinary tract infection 11/10/2014 Active Anemia Unknown Active Back pain Unknown Active Abdominal pain Unknown Active Nausea Unknown Active Diarrhea Unknown Active Constipation Unknown Active Ventral hernia Unknown Active Anxiety Unknown Active Atypical chest pain Unknown Active Epigastric abdominal pain Unknown Active Chronic anemia Unknown Active Anemia Unknown Active Chronic abdominal pain Unknown Active Medications Medication Dose Route [...] PO DAILY 30 Qty 08/29/13 10/01/13 Discontinued Multiple Vitamin 1 X PO DAILY 09/10/13 [...] 30 Mg PO DAILY 30 Qty 07/24/14 09/15/14 Discontinued Neomycin/Polymyxin/Hydrocort 4 Drop EAR FOUR TIMES DAILY For Otic Infection 7 Days 08/02/14 08/10/14 Discontinued Paroxetine Hcl 30 Mg PO DAILY 30 Qty 09/15/14 Active Tramadol Hcl 50 Mg OR Every 6 hours as needed 20 Qty 10/05/14 Discontinued Albuterol 1 Ea INH NEEDED 11/03/14 Active Tramadol Hcl 50 Mg PO Every 8 hours as needed PRN PAIN 12 Qty 12/27/14 Active Vitamin B12 1,000 Cr PO DAILY 12/31/14 Active Tramadol Hcl 50 Mg PO Every 8 hours as needed PRN PAIN 15 Qty 12/31/14 Active Social History Social History Problem Response Recorded Date/Time Hx Alcohol Use Y occasional 12/01/2014 4:02pm Smoking Status Never smoker 12/31/2014 10:30am Query Response Start Date Stop Date Smoking Status Never smoker Hospital Discharge Instructions No hospital discharge instructions. Plan of Care Discharge Date 12/31/14 12:04pm Disposition 01 HOME, SELF-CARE Condition at Discharge Stable Instructions/Education Provided Gastritis (ED) Abdominal Pain (ED) Prescriptions See Medications Section Follow-up Orders UA w/ cult if indica Ct Abdomen/Pelvis W/ Referrals TRACI CROOK MD Additional Instructions/Education Follow up with Dr. Gregorio to have EGD done - call his office to arrange. Continue with Prilosec 2x/day. Use Tramadol for pain. Functional Status No functional status results. Allergies, Adverse Reactions, Alerts Allergen Type Severity Reaction Status Last Updated Vancomycin Adverse Reaction Intermediate RASH, REDNESS Active 09/14/14 Iron Allergy Unknown BURNING RASH Active 11/26/14 Immunizations No immunization records. Vital Signs Acute Vital Signs Vital Response Date/Time Blood Pressure 133/69 mm Hg Blood Pressure Mean 90 mm Hg Temperature (Fahrenheit) 98.4 degrees F (96.0 - 99.9) Temperature (Calculated Celsius) 36.73559 degrees C Temperature Source Oral Pulse Pulse Rate (adult) 79 bpm (60 - 100) Pulse Rate: ED 62 bpm Respiratory Rate 18 breaths per minute (10 - 20) Height (Feet) 5 ft Height (Inches) 4 in. Weight (Pounds) 130 lbs Height 5 ft 4 in Weight 130 lb Body Mass Index 22.3 kg/m^2 Ambulatory Vital Signs Vital Response Date/Time Height 5 ft 4 in 12/01/2014 3:59pm Weight 125 lbs 12/01/2014 3:59pm Temperature, Oral 98.6 degrees F 12/01/2014 3:59pm Blood Pressure, Sitting, Right Arm 116/80 mm Hg 12/01/2014 3:59pm Pulse Rate 90 bpm 12/01/2014 3:59pm Respiration Rate 18 bpm 12/01/2014 3:59pm Body Surface Area 1.60 m2 12/01/2014 3:59pm Body Mass Index 21.5 kg/m2 12/01/2014 3:59pm Results Test Source Date Result Interp. Ref. Range Comments Alanine Aminotransferase (ALT/SGPT) December 31, 2014 11:03am 16 U/L N 5-40 Albumin December 31, 2014 11:03am 4.3 gm/dL N 3.2-5.0 Albumin/Globulin Ratio December 31, 2014 11:03am 1.3 L 1.4-2.4 Alkaline Phosphatase December 31, 2014 11:03am 69 U/L N 35-125 Anion Gap December 31, 2014 11:03am 8.3 N 6-13 Aspartate Amino Transf (AST/SGOT) December 31, 2014 11:03am 29 U/L N 5-40 B-Type Natriuretic Peptide December 24, 2013 6:48pm 146 pg/mL H 15-100 BUN/Creatinine Ratio December 31, 2014 11:03am 11.4 Basophils # (Auto) December 31, 2014 11:03am 0.0 K/uL N 0-0.2 Basophils (%) (Auto) December 31, 2014 11:03am 0.8 % N 0-1 Basophils (Manual) May 03, 2013 6:25pm 2.0 % H 0-1 COMMENT: 01 Bedside Troponin I January 16, 2014 10:07am < 0.05 ng/mL 0.00-0.05 <0.05 ng/mL=NORMAL0.05 - 0.40 ng/mL=CARDIAC CONDITION >0.40 ng/mL=SUGGESTS AMI Blood Urea Nitrogen December 31, 2014 11:03am 8 mg/dL N 8-25 Calcium Level December 31, 2014 11:03am 9.2 mg/dL N 8.2-10.6 Carbon Dioxide Level December 31, 2014 11:03am 25 mEq/L N 22-34 Chloride Level December 31, 2014 11:03am 107 mEq/L N 98-116 Cholesterol Level March 18, 2013 11:40am 168 mg/dL N 120-[address] LANDRY FAXED TO DR. CROOK AT 13:00, 03/18/13 BY MARCK. REPORT FAXED TO DR. CROOK AT 13:43, 03/18/13 BY KJ. Cholesterol Ratio (LDL/HDL) March 18, 2013 11:40am 3.[address] LANDRY FAXED TO DR. CROOK AT 13:00, 03/18/13 BY KJ. REPORT FAXED TO DR. CROOK AT 13:43, 03/18/13 BY KJ. Creatine Kinase MB January 09, 2014 11:06am 0.7 ng/mL N 0.0-6.0 Creatinine December 31, 2014 11:03am 0.70 mg/dL L 0.9-1.6 D-Dimer Quantitative (PE/DVT) April 19, 2014 2:40pm 177 ng/mL < 230 Results <230 ng/mL yeild a negativepredictability for DVT or PE Eosinophils # (Auto) December 31, 2014 11:03am 0.2 K/uL N 0-0.8 Eosinophils (%) (Auto) December 31, 2014 11:03am 5.6 % N 0-7.0 Eosinophils (Manual) May 03, 2013 6:25pm 6.0 % N 0-7.0 COMMENT: 01 Globulin December 31, 2014 11:03am 3.2 gm/dL H 2.0-3.0 Glomerular Filtration Rate Calc December 31, 2014 11:03am > 60.00 mL/min MULTIPLY RESULT BY 1.210 IF THE PATIENT IS -AMERICANUnits are mL/min/ 1.73 m2 > 60 Normal kidney function 30-59 Moderately decreased kidney function 15-29 Severely decreased kidney function <15 End-stage kidney failure HDL Cholesterol March 18, 2013 11:40am 50 mg/dL N 40-[address] LANDRY FAXED TO DR. CROOK AT 13:00, 03/18/13 BY MARCK. REPORT FAXED TO DR. CROOK AT 13:43, 03/18/13 BY MARCK. Hematocrit December 31, 2014 11:03am 30.9 % L 38.0-47.0 Hemoglobin December 31, 2014 11:03am 9.2 g/dL L 12.0-16.0 Human Chorionic Gonadotropin, Qual April 16, 2014 9:05pm Negative NEGATIVE Immature Blood Cells March 18, 2013 11:40am 0.1 K/uL N 0-0.[address] CROOKFAXED 1228 03/18/13 SSW Immature Granulocyte # (Auto) December 31, 2014 11:03am 0.01 K/uL N 0-0.40 Immature Granulocyte % (Auto) December 31, 2014 11:03am 0.3 % N 0-0.5 LDL Cholesterol March 18, 2013 11:40am 103 mg/dL H 25-[address] LANDRY FAXED TO DR. CROOK AT 13:00, 03/18/13 BY MARCK. REPORT FAXED TO DR. CROOK AT 13:43, 03/18/13 BY MARCK. Lipase December 31, 2014 11:03am 29 U/L N 8-57 Lymphocytes # (Auto) December 31, 2014 11:03am 1.4 K/uL N 0.9-5.2 Lymphocytes (%) (Auto) December 31, 2014 11:03am 36.8 % N 16.0-44.0 Lymphocytes (Manual) May 03, 2013 6:25pm 30.0 % N 21.0-51.0 COMMENT : 01 Magnesium Level December 22, 2013 11:30pm 2.1 mg/dL N 1.3-2.5 Mean Corpuscular Hemoglobin December 31, 2014 11:03am 20.7 pg L 26.0-33.0 Mean Corpuscular Hemoglobin Concent December 31, 2014 11:03am 29.8 g/dL L 31.0-36.0 Mean Corpuscular Volume December 31, 2014 11:03am 69.4 fL L 82.0-100.0 Mean Platelet Volume December 31, 2014 11:03am 9.5 fL N 7.0-11.0 Monocytes # (Auto) December 31, 2014 11:03am 0.4 K/uL N 0.16-1.0 Monocytes (%) (Auto) December 31, 2014 11:03am 9.9 % H 2.0-9.0 Monocytes (Manual) May 03, 2013 6:25pm 12.0 % H 2.0-9.0 COMMENT: 01 Morphology Comment May 03, 2013 6:25pm Normal COMMENT: 01 Neutrophils May 03, 2013 6:25pm 50.0 % N 42.0-75.0 COMMENT: 01 Neutrophils # (Auto) December 31, 2014 11:03am 1.8 K/uL L 1.9-8.0 Neutrophils (%) (Auto) December 31, 2014 11:03am 46.6 % N 42.0-75.0 Nucleated Red Blood Cells # December 31, 2014 11:03am 0.00 K/uL N 0.0-0.012 Nucleated Red Blood Cells % December 31, 2014 11:03am 0.0 /100WBC N 0-0 Platelet Count December 31, 2014 11:03am 265 K/uL N 130-400 Platelet Estimate May 03, 2013 6:25pm Normal NORMAL COMMENT: 01 Potassium Level December 31, 2014 11:03am 4.3 mEq/L N 3.5-5.1 Prothromb Time International Ratio September 03, 2013 10:55am 1.11 L 2.0- 3.0 Prothrombin Time September 03, 2013 10:55am 11.3 SECONDS N 9.0-12.0 RDW Standard Deviation December 31, 2014 11:03am 42.9 fL N 36.4-46.3 Random Glucose December 31, 2014 11:03am 96 mg/dL N 65-115 Red Blood Count December 31, 2014 11:03am 4.45 M/uL N 4.20-5.40 Red Cell Distribution Width December 31, 2014 11:03am 17.2 % H 11.5-14.5 Sodium Level December 31, 2014 11:03am 136 mEq/L N 133-145 Thyroid Stimulating Hormone (TSH) September 14, 2014 8:20am 1.94 uIU/ml N 0.34-5.60 Total Bilirubin December 31, 2014 11:03am 0.5 mg/dL N 0.1-1.3 Total Protein December 31, 2014 11:03am 7.5 gm/dL N 6.0-8.4 Triglycerides Level March 18, 2013 11:40am 74 mg/dL N 45-[address] LANDRY FAXED TO DR. CROOK AT 13:00, 03/18/13 BY MARCK. REPORT FAXED TO DR. CROOK AT 13:43, 03/18/13 BY MARCK. Troponin I December 27, 2014 3:10am 0.00 ng/mL N 0.0-0.02 Ur Tetrahydrocannabinol (THC) Scrn December 27, 2014 3:05am Negative NEGATIVE Ur Tricyclic Antidepressants Screen December 27, 2014 3:05am Negative NEGATIVE Urine Amorphous Sediment January 27, 2014 11:59pm 1+ SOURCE: URINE, CLEAN CATCH Urine Amphetamines Screen December 27, 2014 3:05am Negative NEGATIVE Urine Appearance December 27, 2014 3:05am Cloudy SOURCE: URINE, CLEAN CATCH Urine Bacteria December 27, 2014 3:05am 1+ /hpf H NONE SOURCE: URINE, CLEAN CATCH Urine Barbiturates Screen December 27, 2014 3:05am Negative NEGATIVE Urine Benzodiazepines Screen December 27, 2014 3:05am Negative NEGATIVE Urine Bilirubin December 27, 2014 3:05am Negative NEGATIVE SOURCE: URINE , CLEAN CATCH Urine Casts January 27, 2014 11:59pm None /lpf NONE SOURCE: URINE, CLEAN CATCH Urine Cocaine Screen December 27, 2014 3:05am Negative NEGATIVE Urine Color December 27, 2014 3:05am Yellow SOURCE: URINE, CLEAN CATCH Urine Crystals January 27, 2014 11:59pm None /hpf NONE SOURCE: URINE, CLEAN CATCH Urine Epithelial Cells December 27, 2014 3:05am Moderate /lpf SOURCE: URINE, CLEAN CATCH Urine Glucose (UA) December 27, 2014 3:05am Negative NEGATIVE SOURCE: URINE, CLEAN CATCH Urine Human Chorionic Gonadotropin December 27, 2014 3:05am Negative NEGATIVE Urine Ketones December 27, 2014 3:05am Negative NEGATIVE SOURCE: URINE, CLEAN CATCH Urine Leukocyte Esterase December 27, 2014 3:05am Negative NEGATIVE SOURCE: URINE, CLEAN CATCH Urine Methadone Screen December 27, 2014 3:05am Negative NEGATIVE Urine Methamphetamines Screen December 27, 2014 3:05am Negative NEGATIVE Urine Mucus November 03, 2014 9:00pm 2+ /lpf NONE SOURCE: URINE, CLEAN CATCH Urine Nitrate December 27, 2014 3:05am Negative NEGATIVE SOURCE: URINE, CLEAN CATCH Urine Occult Blood December 27, 2014 3:05am 1+ H NEGATIVE SOURCE: URINE, CLEAN CATCH Urine Opiates Screen December 27, 2014 3:05am Negative NEGATIVE Urine Other January 27, 2014 11:59pm None SOURCE: URINE, CLEAN CATCH Urine Phencyclidine Screen December 27, 2014 3:05am Negative NEGATIVE Urine Propoxyphene Screen December 27, 2014 3:05am Negative NEGATIVE Urine Protein December 27, 2014 3:05am Negative NEGATIVE SOURCE: URINE, CLEAN CATCH Urine RBC December 27, 2014 3:05am 5-10 /hpf H NONE SOURCE: URINE, CLEAN CATCH Urine Specific [place] December 27, 2014 3:05am 1.025 1.005-1.030 SOURCE : URINE, CLEAN CATCH Urine Urobilinogen December 27, 2014 3:05am 0.2 E.U./dL 0.2-1.0 SOURCE: URINE, CLEAN CATCH Urine WBC December 27, 2014 3:05am 0-1 /hpf NONE SOURCE: URINE, CLEAN CATCH Urine WBC Clumps January 27, 2014 11:59pm 0-1 /hpf NONE SOURCE: URINE, CLEAN CATCH Urine pH December 27, 2014 3:05am 6.0 4.5-8.0 SOURCE: URINE, CLEAN CATCH VLDL Cholesterol March 18, 2013 11:40am 14.8 N 5-[address] LANDRY FAXED TO DR. CROOK AT 13:00, 03/18/13 BY MARCK. REPORT FAXED TO DR. CROOK AT 13:43, 03/18/13 BY MARCK. White Blood Count December 31, 2014 11:03am 3.8 K/uL L 5.0-10.0 Urine Culture Urine,Clean Catch November 03, 2014 9:00pm Procedures Procedure Status Date Provider(s) HYDRATION IV [...] QUIJANO M.D. THER/PROPH/DIAG INJ IV PUSH completed 09/14/14 NEGRO QUIJANO M.D. TX/PRO/DX INJ NEW DRUG ADDON completed 09/14/14 NEGRO QUIJANO M.D. HYDRATE IV INFUSION ADD-ON completed 09/14/14 NEGRO QUIJANO M.D. THER/PROPH/DIAG INJ IV PUSH completed 11/26/14 LUZ ELENA SMITH M.D. THER/PROPH/DIAG IV INF [...] Encounters Encounter Location Date/Time Departed Emergency Room [facility] 12/31/14 10:26am Departed Emergency Room [facility] 12/27/14 2:43am Office Visit JIMMY GREGORIO 12/01/14 3:15pm Departed Emergency Room [facility] 11/26/14 10:33am Office Visit TRACI CROOK 11/17/14 11:00am Departed Emergency Room [facility] 11/03/14 8:37pm Departed Emergency Room [facility] 09/19/14 9:54am Departed Emergency Room [facility] 09/14/14 8:03am Departed Emergency Room [facility] 09/02/14 2:56pm Departed Emergency Room [facility]i [facility] 08/02/14 1:09pm Departed Emergency Room [facility] 07/03/14 10:05pm Departed Emergency Room [facility] 06/07/14 10:34am Departed Emergency Room [facility] 05/15/14 10:44am Registered Clinic [facility] 04/23/14 10:28am Departed Emergency Room [facility]i [facility] 04/22/14 12:26am Departed Emergency Room [facility]i [facility] 04/19/14 2:00pm Departed Emergency Room Juli [facility] 04/16/14 8:01pm Departed Emergency Room Juli [facility] 04/13/14 5:01pm Departed Emergency Room [facility] 04/08/14 2:51pm Departed Emergency Room [facility]i [facility] 03/02/14 1:55am Departed Emergency Room Juli [facility] 01/29/14 11:26pm Departed Emergency Room [facility]i [facility] 01/27/14 11:34pm Departed Emergency Room [facility] 01/25/14 6:23pm Registered Clinic [facility] 01/22/14 10:26am Departed Emergency Room [facility] 01/16/14 9:42am Departed Emergency Room [facility] 01/10/14 5:56pm Departed Emergency Room [facility] 01/09/14 11:54am Office Visit TRACI CROOK 01/09/14 10:30[facility] 01/08/14 8:00pm Recent Diagnosis
--- OUTSIDE RECORDS SUMMARY | 2016-11-21 22:31 | XMS REPORT | Continuity of Care Document ---
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 Event Sales Assistant Name Role Phone TRACI CROOK MD Unavailable [phone] Insurance Providers Payer Name Policy Number Subscriber Name Relationship Self Pay Insurance Chief Complaint and Reason for Visit Chief Complaint Respiratory Problem Reason for Visit Bronchitis Problems Medical Problems Problem Onset Date Status [...] Mg PO DAILY 30 Qty 01/09/14 Active Ciprofloxacin Hcl 500 Mg PO TWICE A DAY 7 Days 01/30/14 02/07/14 Discontinued Prednisone 50 Mg PO DAILY 5 Qty 03/02/14 Active Albuterol 1-2 Puffs INH Every 4 hours as needed 1 Qty 03/02/14 Active Promethazine/Codeine 5 Ml PO Every 4 hours as needed 120 Qty 03/02/14 Active Social History Social History Problem Response Recorded Date/Time Hx Alcohol Use No 03/04/2013 12:35pm Smoking Status Never smoker 03/02/2014 1:56am Query Response Start Date Stop Date Smoking Status Never smoker Hospital Discharge Instructions No hospital discharge instructions. Plan of Care Discharge Date 03/02/14 2:52am Disposition 01 HOME, SELF-CARE Condition at Discharge Stable Prescriptions See Medications Section Referrals TRACI CROOK MD Functional Status No functional status results. Allergies, Adverse Reactions, Alerts Allergen Type Severity Reaction Status Last Updated No Known Allergies Active 01/16/14 Immunizations No immunization records. Vital Signs Acute Vital Signs Vital Response Date/Time Blood Pressure 121/67 mm Hg 03/02/2014 2:41am Blood Pressure Mean 85 mm Hg 03/02/2014 2:41am Pulse 03/02/2014 2:41am Pulse Rate: ED 84 bpm 03/02/2014 2:41am Ambulatory Vital Signs Vital Response Date/Time Height 5 ft 4.500 in 01/09/2014 10:36am Weight 108 lbs 01/09/2014 10:36am Blood Pressure 122/80 mm Hg 01/09/2014 10:36am Body Surface Area 1.48 m2 01/09/2014 10:36am Body Mass Index 18.3 kg/m2 01/09/2014 10:36am Results Test Source Date Result Interp. Ref. Range Comments Urine Culture Urine,Clean Catch January 27, 2014 11:59pm >100,000 CFU/ML MIXED BODY ADITYA AFTE... Procedures No known history of procedures. Encounters Encounter Location Date/Time Registered Emergency Room [facility] 03/02/14 1:55am Departed Emergency Room [facility] 01/29/14 11:26pm Departed Emergency Room [facility] 01/27/14 11:34pm Departed Emergency Room [facility] 01/25/14 6:23pm Registered Clinic [facility] 01/22/14 10:26am Departed Emergency Room [facility] 01/16/14 9:42am Departed Emergency Room [facility] 01/10/14 5:56pm Departed Emergency Room [facility] 01/09/14 11:54am Office Visit TRACI CROOK 01/09/14 10:30am Departed Emergency Room [facility] 01/08/14 8:00pm Departed Emergency Room [facility] 12/24/13 6:10pm Departed Emergency Room [facility] 12/22/13 9:50pm Departed Emergency Room [facility] 12/15/13 11:32am Departed Emergency Room [facility] 12/11/13 10:06pm Registered Clinic [facility] 11/21/13 11:19am Departed Emergency Room [facility] 11/16/13 8:55pm Departed Emergency Room [facility] 11/11/13 4:43pm Departed Emergency Room [facility] 11/05/13 4:02pm Office Visit TRACI CROOK 10/10/13 11:30am Departed Emergency Room [facility] 10/09/13 8:57am Departed Emergency Room [facility] 10/03/13 2:43am Departed Emergency Room Jul[facility] 09/10/13 7:03pm Departed Emergency Room [facility] 09/03/13 10:42am Departed Emergency Room Jul[facility] Flako [facility] 08/04/13 9:16am Office Visit TRACI CROOK 07/08/13 2:15pm Office Visit TRACI CROOK 06/24/13 3:45pm Office Visit TRACI CROOK 05/13/13 2:00pm Departed Emergency Room [facility] 05/03/13 5:49pm Office Visit TRACI CROOK 03/18/13 11:15am Office Visit TRACI CROOK 03/04/13 11:15am Recent Diagnosis Bronchitis
--- OUTSIDE RECORDS SUMMARY | 2016-11-21 22:31 | XMS REPORT | Continuity of Care Document ---
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 Name Role Phone TRACI CROOK MD Primary Care Physician [phone] Insurance Providers Payer Name Policy Number Subscriber Name Relationship Self Pay Insurance RosettaVel mijaresLisa S 01 Self / Same As Patient Chief Complaint and Reason for Visit Chief Complaint Respiratory Problem Reason for Visit Anxiety Atypical chest pain [id number] Chronic anemia Problems Medical Problems Problem Onset [...] pain Unknown Active Chronic anemia Unknown Active Medications [...] needed PRN PAIN 12 Qty 12/27/14 Active Social History Social History Problem Response Recorded Date/Time Hx Alcohol Use Y occasional 12/01/2014 4:02pm Smoking Status Never smoker 12/27/2014 2:48am Query Response Start Date Stop Date Smoking Status Never smoker Hospital Discharge Instructions No hospital discharge instructions. Plan of Care Discharge Date 12/27/14 4:00am Disposition 01 HOME, SELF-CARE Condition at Discharge Stable Instructions/Education Provided Chest Pain (ED) Gastritis (ED) Abdominal Pain (ED) Prescriptions See Medications Section Follow-up Orders UA w/ cult if indica Ct Abdomen/Pelvis W/ Referrals TRACI CROOK MD Additional Instructions/Education Follow up with Dr. Mathur to have EGD done - tell him your anemia and pain is worse. Use Tramadol as needed for pain. Follow up with Dr. Crook - may want to adjust your anxiety medication. Follow up with Dr. Swenson as well should your chest pain continue. Return to the ER if with worsening symptoms. Avoid spicy or fatty foods. Avoid Aspirin and Ibuprofen containing products. Functional Status No functional status results. Allergies, Adverse Reactions, Alerts Allergen Type Severity Reaction Status Last Updated Vancomycin Adverse Reaction Intermediate RASH, REDNESS Active 09/14/14 Iron Allergy Unknown BURNING RASH Active 11/26/14 Immunizations No immunization records. Vital Signs Acute Vital Signs Vital Response Date/Time Blood Pressure 125/69 mm Hg Blood Pressure Mean 87 mm Hg Temperature (Fahrenheit) 98.1 degrees F (96.0 - 99.9) Temperature (Calculated Celsius) 36.45555 degrees C Temperature Source Oral Pulse Pulse Rate (adult) 79 bpm (60 - 100) Pulse Rate: ED 89 bpm Respiratory Rate 16 breaths per minute (10 - 20) Height [...] Ref. Range Comments Alanine Aminotransferase (ALT/SGPT) December 27, 2014 3:10am 17 U/L N 5-40 Albumin December 27, 2014 3:10am 4.2 gm/dL N 3.2-5.0 Albumin/Globulin Ratio December 27, 2014 3:10am 1.4 N 1.4-2.4 Alkaline Phosphatase December 27, 2014 3:10am 63 U/L N 35-125 Anion Gap December 27, 2014 3:10am 7.5 N 6-13 Aspartate Amino Transf (AST/SGOT) December 27, 2014 3:10am 19 U/L N 5-40 B-Type Natriuretic Peptide December 24, 2013 6:48pm 146 pg/mL H 15-100 BUN/Creatinine Ratio December 27, 2014 3:10am 15.1 Basophils # (Auto) December 27, 2014 3:10am 0.1 K/uL N 0-0.2 Basophils (%) (Auto) December 27, 2014 3:10am 1.1 % H 0-1 Basophils (Manual) May 03, 2013 6:25pm 2.0 % H 0-1 COMMENT: 01 Bedside Troponin I January 16, 2014 10:07am < 0.05 ng/mL 0.00-0.05 <0.05 ng/mL=NORMAL0.05 - 0.40 ng/mL=CARDIAC CONDITION >0.40 ng/mL=SUGGESTS AMI Blood Urea Nitrogen December 27, 2014 3:10am 11 mg/dL N 8-25 Calcium Level December 27, 2014 3:10am 9.3 mg/dL N 8.2-10.6 Carbon Dioxide Level December 27, 2014 3:10am 25 mEq/L N 22-34 Chloride Level December 27, 2014 3:10am 109 mEq/L N 98-116 Cholesterol Level March 18, [...] 11:06am 0.7 ng/mL N 0.0-6.0 Creatinine December 27, 2014 3:10am 0.73 mg/dL L 0.9-1.6 D-Dimer Quantitative (PE/DVT) April 19, 2014 2:40pm 177 ng/mL < 230 Results <230 ng/mL yeild a negativepredictability for DVT or PE Eosinophils # (Auto) December 27, 2014 3:10am 0.3 K/uL N 0-0.8 Eosinophils (%) (Auto) December 27, 2014 3:10am 5.5 % N 0-7.0 Eosinophils (Manual) May 03, 2013 6:25pm 6.0 % N 0-7.0 COMMENT: 01 Globulin December 27, 2014 3:10am 3.1 gm/dL H 2.0-3.0 Glomerular Filtration Rate Calc December 27, 2014 3:10am > 60.00 mL/min MULTIPLY RESULT BY 1.210 [...] AT 13:43, 03/18/13 BY MARCK. Hematocrit December 27, 2014 3:10am 28.7 % L 38.0-47.0 Hemoglobin December 27, 2014 3:10am 8.6 g/dL L 12.0-16.0 Human Chorionic Gonadotropin, Qual April 16, 2014 9:05pm Negative NEGATIVE Immature Blood Cells March 18, 2013 11:40am 0.1 K/uL N 0-0.[address] CROOKFAXED 1228 03/18/13 SSW Immature Granulocyte # (Auto) December 27, 2014 3:10am 0.01 K/uL N 0-0.40 Immature Granulocyte % (Auto) December 27, 2014 3:10am 0.2 % N 0-0.5 LDL Cholesterol March 18, 2013 11:40am 103 mg/dL H 25-[address] LANDRY FAXED TO DR. CROOK AT 13:00, 03/18/13 BY MARCK. REPORT FAXED TO DR. CROOK AT 13:43, 03/18/13 BY MARCK. Lipase December 27, 2014 3:10am 41 U/L N 8-57 Lymphocytes # (Auto) December 27, 2014 3:10am 2.5 K/uL N 0.9-5.2 Lymphocytes (%) (Auto) December 27, 2014 3:10am 53.1 % H 16.0-44.0 Lymphocytes (Manual) May 03, 2013 6:25pm 30.0 % N 21.0-51.0 COMMENT : 01 Magnesium Level December 22, 2013 11:30pm 2.1 mg/dL N 1.3-2.5 Mean Corpuscular Hemoglobin December 27, 2014 3:10am 20.9 pg L 26.0-33.0 Mean Corpuscular Hemoglobin Concent December 27, 2014 3:10am 30.0 g/dL L 31.0-36.0 Mean Corpuscular Volume December 27, 2014 3:10am 69.8 fL L 82.0-100.0 Mean Platelet Volume December 27, 2014 3:10am 9.4 fL N 7.0-11.0 Monocytes # (Auto) December 27, 2014 3:10am 0.5 K/uL N 0.16-1.0 Monocytes (%) (Auto) December 27, 2014 3:10am 9.5 % H 2.0-9.0 Monocytes (Manual) May 03, 2013 6:25pm 12.0 % H 2.0-9.0 COMMENT: 01 Morphology Comment May 03, 2013 6:25pm Normal COMMENT: 01 Neutrophils May 03, 2013 6:25pm 50.0 % N 42.0-75.0 COMMENT: 01 Neutrophils # (Auto) December 27, 2014 3:10am 1.5 K/uL L 1.9-8.0 Neutrophils (%) (Auto) December 27, 2014 3:10am 30.6 % L 42.0-75.0 Nucleated Red Blood Cells # December 27, 2014 3:10am 0.00 K/uL N 0.0-0.012 Nucleated Red Blood Cells % December 27, 2014 3:10am 0.0 /100WBC N 0-0 Platelet Count December 27, 2014 3:10am 312 K/uL N 130-400 Platelet Estimate May 03, 2013 6:25pm Normal NORMAL COMMENT: 01 Potassium Level December 27, 2014 3:10am 3.5 mEq/L N 3.5-5.1 Prothromb Time International Ratio September 03, 2013 10:55am 1.11 L 2.0- 3.0 Prothrombin Time September 03, 2013 10:55am 11.3 SECONDS N 9.0-12.0 RDW Standard Deviation December 27, 2014 3:10am 43.6 fL N 36.4-46.3 Random Glucose December 27, 2014 3:10am 91 mg/dL N 65-115 Red Blood Count December 27, 2014 3:10am 4.11 M/uL L 4.20-5.40 Red Cell Distribution Width December 27, 2014 3:10am 17.2 % H 11.5-14.5 Sodium Level December 27, 2014 3:10am 138 mEq/L N 133-145 Thyroid Stimulating Hormone (TSH) September 14, 2014 8:20am 1.94 uIU/ml N 0.34-5.60 Total Bilirubin December 27, 2014 3:10am 0.4 mg/dL N 0.1-1.3 Total Protein December 27, 2014 3:10am 7.3 gm/dL N 6.0-8.4 Triglycerides Level March 18, [...] NONE SOURCE: URINE, CLEAN CATCH Urine Specific [place] December 27, 2014 3:05am 1.025 1.005-1.030 SOURCE [...] 03/18/13 BY MARCK. White Blood Count December 27, 2014 3:10am 4.7 K/uL L 5.0-10.0 Urine Culture Urine,Clean Catch [...] HERO DOSS D.O. Encounters Encounter Location Date/Time Registered Emergency Room [facility] 12/27/14 2:43am Office Visit JIMMY MATHUR 12/01/14 3:15pm Departed Emergency Room [facility] 11/26/14 10:33am Office Visit TRACI CROOK 11/17/14 11:00am Departed Emergency Room [facility] 11/03/14 8:37pm Departed Emergency Room [facility] 09/19/14 9:54am Departed Emergency Room [facility] 09/14/14 8:03am Departed Emergency Room [facility] 09/02/14 2:56pm Departed Emergency Room [facility] 08/02/14 1:09pm Departed Emergency Room [facility] 07/03/14 10:05pm Departed Emergency Room [facility] 06/07/14 10:34am Departed Emergency Room Juli Flako [facility] 05/15/14 10:44am Registered Clinic [facility] 04/23/14 10:28am Departed Emergency Room [facility] 04/22/14 12:26am Departed Emergency Room [facility] 04/19/14 2:00pm Departed Emergency Room [facility] 04/16/14 8:01pm [facility] 04/13/14 5:01pm [facility] 04/08/14 2:51pm Departed Emergency Room [facility] 03/02/14 1:55am Departed Emergency Room [facility] 01/29/14 11:26pm Departed Emergency Room [facility] 01/27/14 11:34pm Departed Emergency Room [facility] 01/25/14 6:23pm Registered Clinic [facility] 01/22/14 10:26am Departed Emergency Room [facility] 01/16/14 9:42am Departed Emergency Room [facility] Flako [facility] 01/10/14 5:56pm [facility] 01/09/14 11:54am Office Visit TRACI CROOK 01/09/14 10:30am Departed Emergency Room [facility] 01/08/14 8:00pm Recent Diagnosis
--- OUTSIDE RECORDS SUMMARY | 2016-11-21 22:32 | XMS REPORT | Continuity of Care Document ---
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 Meter Calibrator Name Role Phone TRACI CROOK MD Primary Care Physician [phone] Insurance Providers Payer Name Policy Number Subscriber Name Relationship Workers Compensation [id number] CarlineLisa Sumeet 08 Employee Chief Complaint and Reason for Visit Chief Complaint Abdominal Pain Reason for Visit Anemia Back pain Abdominal pain Problems Medical Problems Problem Onset Date [...] pain Unknown Active Abdominal pain Unknown Active Medications Medication Dose Route [...] Albuterol 1 Ea INH NEEDED 11/03/14 Active Gabapentin 300 Mg PO DIRECTED 50 Qty 11/17/14 Active Tramadol Hcl 50 Mg PO Every 8 hours as needed PRN PAIN 12 Qty 11/26/14 Active Social History Social History Problem Response Recorded Date/Time Hx Alcohol Use No 03/04/2013 12:35pm Smoking Status Never smoker 11/26/2014 10:34am Query Response Start Date Stop Date Smoking Status Never smoker Hospital Discharge Instructions No hospital discharge instructions. Plan of Care Discharge Date 11/26/14 12:18pm Disposition 01 HOME, SELF-CARE Condition at Discharge Stable Instructions/Education Provided Abdominal Pain (ED) Prescriptions See Medications Section Follow-up Orders UA w/ cult if indica Referrals TRACI CROOK MD, PAUL O M.D. Additional Instructions/Education You will need to follow up with Dr. Gregorio to further evaluate your ongoing symptoms - will need EGD/colonoscopy (scope to stomach and intestines) to further evaluate your ongoing abdominal pain and anemia. In the meantime, take OTC Prilosec daily x 2 weeks. Avoid fatty and spicy foods. Avoid Aspirin, Ibuprofen containing products. Use Tylenol for mild pain and Tramadol for severe pain. Return to the ER if with fever, worsening pain, persistent vomiting. Functional Status No functional status results. Allergies, Adverse Reactions, Alerts Allergen Type Severity Reaction Status Last Updated Vancomycin Adverse Reaction Intermediate RASH, REDNESS Active 09/14/14 Iron Allergy Unknown BURNING RASH Active 11/26/14 Immunizations No immunization records. Vital Signs Acute Vital Signs Vital Response Date/Time Blood Pressure 108/71 mm Hg Blood Pressure Mean 83 mm Hg Temperature (Fahrenheit) 97.1 degrees F (96.0 - 99.9) Temperature (Calculated Celsius) 36.84883 degrees C Temperature Source Oral Pulse Pulse Rate (adult) 79 bpm (60 - 100) Pulse Rate: ED 60 bpm Respiratory Rate 16 breaths per minute (10 - 20) Height (Feet) 5 ft Height (Inches) 4 in. Weight (Pounds) 127 lbs Ambulatory Vital Signs Vital Response Date/Time Height 5 ft 4.500 in 11/17/2014 11:15am Weight 127 lbs 11/17/2014 11:15am Blood Pressure 120/74 mm Hg 11/17/2014 11:15am Body Surface Area 1.62 m2 11/17/2014 11:15am Body Mass Index 21.5 kg/m2 11/17/2014 11:15am Results Test Source Date Result Interp. Ref. Range Comments Alanine Aminotransferase (ALT/SGPT) November 26, 2014 11:12am 29 U/L N 5-40 Albumin November 26, 2014 11:12am 4.6 gm/dL N 3.2-5.0 Albumin/Globulin Ratio November 26, 2014 11:12am 1.4 N 1.4-2.4 Alkaline Phosphatase November 26, 2014 11:12am 67 U/L N 35-125 Anion Gap November 26, 2014 11:12am 8.9 N 6-13 Aspartate Amino Transf (AST/SGOT) November 26, 2014 11:12am 33 U/L N 5-40 B-Type Natriuretic Peptide December 24, 2013 6:48pm 146 pg/mL H 15-100 BUN/Creatinine Ratio November 26, 2014 11:12am 17.6 Basophils # (Auto) November 26, 2014 11:12am 0.1 K/uL N 0-0.2 Basophils (%) (Auto) November 26, 2014 11:12am 1.0 % N 0-1 Basophils (Manual) May 03, 2013 6:25pm 2.0 % H 0-1 COMMENT: 01 Bedside Troponin I January 16, 2014 10:07am < 0.05 ng/mL 0.00-0.05 <0.05 ng/mL=NORMAL0.05 - 0.40 ng/mL=CARDIAC CONDITION >0.40 ng/mL=SUGGESTS AMI Blood Urea Nitrogen November 26, 2014 11:12am 12 mg/dL N 8-25 Calcium Level November 26, 2014 11:12am 9.5 mg/dL N 8.2-10.6 Carbon Dioxide Level November 26, 2014 11:12am 29 mEq/L N 22-34 Chloride Level November 26, 2014 11:12am 104 mEq/L N 98-116 Cholesterol Level March 18, [...] 2014 11:06am 0.7 ng/mL N 0.0-6.0 Creatinine November 26, 2014 11:12am 0.68 mg/dL L 0.9-1.6 D-Dimer Quantitative (PE/DVT) April 19, 2014 2:40pm 177 ng/mL < 230 Results <230 ng/mL yeild a negativepredictability for DVT or PE Eosinophils # (Auto) November 26, 2014 11:12am 0.2 K/uL N 0-0.8 Eosinophils (%) (Auto) November 26, 2014 11:12am 2.9 % N 0-7.0 Eosinophils (Manual) May 03, 2013 6:25pm 6.0 % N 0-7.0 COMMENT: 01 Globulin November 26, 2014 11:12am 3.4 gm/dL H 2.0-3.0 Glomerular Filtration Rate Calc November 26, 2014 11:12am > 60.00 mL/min MULTIPLY RESULT BY 1.210 [...] CROOK AT 13:43, 03/18/13 BY MARCK. Hematocrit November 26, 2014 11:12am 33.6 % L 38.0-47.0 Hemoglobin November 26, 2014 11:12am 9.8 g/dL L 12.0-16.0 Human Chorionic Gonadotropin, Qual April 16, 2014 9:05pm Negative NEGATIVE Immature Blood Cells March 18, 2013 11:40am 0.1 K/uL N 0-0.[address] CROOKFAXED 1228 03/18/13 SSW Immature Granulocyte # (Auto) November 26, 2014 11:12am 0.02 K/uL N 0-0.40 Immature Granulocyte % (Auto) November 26, 2014 11:12am 0.3 % N 0-0.5 LDL Cholesterol March 18, 2013 11:40am 103 mg/dL H 25-[address] LANDRY FAXED TO DR. CROOK AT 13:00, 03/18/13 BY MARCK. REPORT FAXED TO DR. CROOK AT 13:43, 03/18/13 BY MARCK. Lipase November 26, 2014 11:12am 39 U/L N 8-57 Lymphocytes # (Auto) November 26, 2014 11:12am 2.1 K/uL N 0.9-5.2 Lymphocytes (%) (Auto) November 26, 2014 11:12am 34.7 % N 16.0-44.0 Lymphocytes (Manual) May 03, 2013 6:25pm 30.0 % N 21.0-51.0 COMMENT : 01 Magnesium Level December 22, 2013 11:30pm 2.1 mg/dL N 1.3-2.5 Mean Corpuscular Hemoglobin November 26, 2014 11:12am 20.9 pg L 26.0-33.0 Mean Corpuscular Hemoglobin Concent November 26, 2014 11:12am 29.2 g/dL L 31.0-36.0 Mean Corpuscular Volume November 26, 2014 11:12am 71.8 fL L 82.0-100.0 Mean Platelet Volume November 26, 2014 11:12am 9.4 fL N 7.0-11.0 Monocytes # (Auto) November 26, 2014 11:12am 0.7 K/uL N 0.16-1.0 Monocytes (%) (Auto) November 26, 2014 11:12am 10.6 % H 2.0-9.0 Monocytes (Manual) May 03, 2013 6:25pm 12.0 % H 2.0-9.0 COMMENT: 01 Morphology Comment May 03, 2013 6:25pm Normal COMMENT: 01 Neutrophils May 03, 2013 6:25pm 50.0 % N 42.0-75.0 COMMENT: 01 Neutrophils # (Auto) November 26, 2014 11:12am 3.1 K/uL N 1.9-8.0 Neutrophils (%) (Auto) November 26, 2014 11:12am 50.5 % N 42.0-75.0 Nucleated Red Blood Cells # November 26, 2014 11:12am 0.00 K/uL N 0.0-0.012 Nucleated Red Blood Cells % November 26, 2014 11:12am 0.0 /100WBC N 0-0 Platelet Count November 26, 2014 11:12am 314 K/uL N 130-400 Platelet Estimate May 03, 2013 6:25pm Normal NORMAL COMMENT: 01 Potassium Level November 26, 2014 11:12am 3.9 mEq/L N 3.5-5.1 Prothromb Time International Ratio September 03, 2013 10:55am 1.11 L 2.0- 3.0 Prothrombin Time September 03, 2013 10:55am 11.3 SECONDS N 9.0-12.0 RDW Standard Deviation November 26, 2014 11:12am 42.9 fL N 36.4-46.3 Random Glucose November 26, 2014 11:12am 113 mg/dL N 65-115 Red Blood Count November 26, 2014 11:12am 4.68 M/uL N 4.20-5.40 Red Cell Distribution Width November 26, 2014 11:12am 16.8 % H 11.5-14.5 Sodium Level November 26, 2014 11:12am 138 mEq/L N 133-145 Thyroid Stimulating Hormone (TSH) September 14, 2014 8:20am 1.94 uIU/ml N 0.34-5.60 Total Bilirubin November 26, 2014 11:12am 0.4 mg/dL N 0.1-1.3 Total Protein November 26, 2014 11:12am 8.0 gm/dL N 6.0-8.4 Triglycerides Level March 18, 2013 11:40am 74 mg/dL N 45-[address] LANDRY FAXED TO DR. CROOK AT 13:00, 03/18/13 BY MARCK. REPORT FAXED TO DR. AMBREEN AT 13:43, 03/18/13 BY Troponin I September 14, 2014 8:20am 0.00 ng/mL N 0.0-0.02 Ur Tetrahydrocannabinol (THC) Scrn April 19, 2014 2:40pm Negative NEGATIVE Ur Tricyclic Antidepressants Screen April 19, 2014 2:40pm Negative NEGATIVE Urine Amorphous Sediment January 27, 2014 11:59pm 1+ SOURCE: URINE, CLEAN CATCH Urine Amphetamines Screen April 19, 2014 2:40pm Negative NEGATIVE Urine Appearance November 26, 2014 10:53am Sl cloudy SOURCE: URINE, CLEAN CATCH Urine Bacteria November 26, 2014 10:53am 1+ /hpf H NONE SOURCE: URINE, CLEAN CATCH Urine Barbiturates Screen April 19, 2014 2:40pm Negative NEGATIVE Urine Benzodiazepines Screen April 19, 2014 2:40pm Negative NEGATIVE Urine Bilirubin November 26, 2014 10:53am Negative NEGATIVE SOURCE: URINE , CLEAN CATCH Urine Casts January 27, 2014 11:59pm None /lpf NONE SOURCE: URINE, CLEAN CATCH Urine Cocaine Screen April 19, 2014 2:40pm Negative NEGATIVE Urine Color November 26, 2014 10:53am Yellow SOURCE: URINE, CLEAN CATCH Urine Crystals January 27, 2014 11:59pm None /hpf NONE SOURCE: URINE, CLEAN CATCH Urine Epithelial Cells November 26, 2014 10:53am Many /lpf SOURCE: URINE , CLEAN CATCH Urine Glucose (UA) November 26, 2014 10:53am Negative NEGATIVE SOURCE: URINE, CLEAN CATCH Urine Human Chorionic Gonadotropin November 26, 2014 10:53am Negative NEGATIVE Urine Ketones November 26, 2014 10:53am Negative NEGATIVE SOURCE: URINE, CLEAN CATCH Urine Leukocyte Esterase November 26, 2014 10:53am Negative NEGATIVE SOURCE: URINE, CLEAN CATCH Urine Methadone Screen April 19, 2014 2:40pm Negative NEGATIVE Urine Methamphetamines Screen April 19, 2014 2:40pm Negative NEGATIVE Urine Mucus November 03, 2014 9:00pm 2+ /lpf NONE SOURCE: URINE, CLEAN CATCH Urine Nitrate November 26, 2014 10:53am Negative NEGATIVE SOURCE: URINE, CLEAN CATCH Urine Occult Blood November 26, 2014 10:53am Negative NEGATIVE SOURCE: URINE, CLEAN CATCH Urine Opiates Screen April 19, 2014 2:40pm Negative NEGATIVE Urine Other January 27, 2014 11:59pm None SOURCE: URINE, CLEAN CATCH Urine Phencyclidine Screen April 19, 2014 2:40pm Negative NEGATIVE Urine Propoxyphene Screen April 19, 2014 2:40pm Negative NEGATIVE Urine Protein November 26, 2014 10:53am Negative NEGATIVE SOURCE: URINE, CLEAN CATCH Urine RBC November 26, 2014 10:53am 0-1 /hpf NONE SOURCE: URINE, CLEAN CATCH Urine Specific [place] November 26, 2014 10:53am 1.025 1.005-1.030 SOURCE : URINE, CLEAN CATCH Urine Urobilinogen November 26, 2014 10:53am 0.2 E.U./dL 0.2-1.0 SOURCE: URINE, CLEAN CATCH Urine WBC November 26, 2014 10:53am 1-3 /hpf NONE SOURCE: URINE, CLEAN CATCH Urine WBC Clumps January 27, 2014 11:59pm 0-1 /hpf NONE SOURCE: URINE, CLEAN CATCH Urine pH November 26, 2014 10:53am 6.5 4.5-8.0 SOURCE: URINE, CLEAN CATCH VLDL Cholesterol March 18, 2013 11:40am 14.8 N 5-[address] LANDRY FAXED TO DR. CROOK AT 13:00, 03/18/13 BY MARCK. REPORT FAXED TO DR. CROOK AT 13:43, 03/18/13 BY MARCK. White Blood Count November 26, 2014 11:12am 6.1 K/uL N 5.0-10.0 Urine Culture Urine,Clean Catch November 03, [...] QUIJANO M.D. THER/PROPH/DIAG INJ IV PUSH completed 12/11/13 HENRRY ASRGENT M.D. TX/PRO/DX INJ NEW DRUG ADDON completed [...] Encounter Location Date/Time Registered Emergency Room [facility] 11/26/14 10:33am Office Visit TRACI CROOK 11/17/14 11:00am [facility]14 8:37pm Departed Emergency Room [facility] 09/19/14 9:54am Departed Emergency Room [facility] 09/14/14 8:03am Departed Emergency Room [facility] 09/02/14 2:56pm Departed Emergency Room [facility] 08/02/14 1:09pm Departed Emergency Room [facility] 07/03/14 10:05pm Departed Emergency Room [facility] 06/07/14 10:34am Departed Emergency Room [facility] 05/15/14 10:44am Registered Clinic [facility] 04/23/14 10:28am Departed Emergency Room [facility] 04/22/14 12:26am Departed Emergency Room [facility] 04/19/14 2:00pm Departed Emergency Room [facility] 04/16/14 8:01pm Departed Emergency Room [facility] 04/13/14 5:01pm Departed Emergency Room [facility] 04/08/14 2:51pm Departed Emergency Room [facility] 03/02/14 1:55am Departed Emergency Room [facility] 01/29/14 11:26pm Departed Emergency Room [facility] 01/27/14 11:34pm Departed Emergency Room [facility] 01/25/14 6:23pm Registered Clinic [facility] 01/22/14 10:26am Departed Emergency Room [facility] 01/16/14 9:42am Departed Emergency Room [facility] 01/10/14 5:56pm Departed Emergency Room [facility] 01/09/14 11:54am Office Visit TRACI CROOK 01/09/14 10:30[facility] 01/08/14 8:00pm Departed Emergency Room [facility] 12/24/13 6:10pm Departed Emergency Room [facility] 12/22/13 9:50pm Departed Emergency Room [facility] 12/15/13 11:32am Departed Emergency Room [facility] 12/11/13 10:06pm Recent Diagnosis
--- OUTSIDE RECORDS SUMMARY | 2016-11-21 22:32 | XMS REPORT | Continuity of Care Document ---
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 Trimming Press Operator Name Role Phone TRACI CROOK MD Unavailable [phone] Insurance Providers Payer Name Policy Number Subscriber Name Relationship Self Pay Insurance Chief Complaint and Reason for Visit Chief Complaint Neck Pain Reason for Visit Torticollis (intermittent, spastic) traumatic, current NEC Problems Medical Problems Problem Onset Date Status [...] Unknown Active History of bradycardia Unknown Active Medications Medication Dose Route Sig [...] A DAY 7 Days 01/30/14 02/07/14 Discontinued Albuterol 1-2 Puffs INH Every 4 hours as needed 1 Qty 03/02/14 Active Cyclobenzaprine Hcl 5 Mg PO TWICE A DAY 15 Qty 04/08/14 Active Paroxetine Hcl 30 Mg PO DAILY 30 Qty 04/16/14 Active Tramadol Hcl 1-2 Tab OR Every 6 hours as needed 20 Qty 05/14/14 Active Diclofenac Sodium 75 Mg PO Every 12 hours as needed 30 Qty 05/15/14 Active Cyclobenzaprine Hcl 1-2 Tab PO Every 8 hours as needed 20 Qty 05/15/14 Active Social History Social History Problem Response Recorded Date/Time Hx Alcohol Use No 03/04/2013 12:35pm Smoking Status Never smoker 05/15/2014 10:46am Query Response Start Date Stop Date Smoking Status Never smoker Hospital Discharge Instructions No hospital discharge instructions. Plan of Care Discharge Date 05/15/14 11:47am Disposition 01 HOME, SELF-CARE Condition at Discharge Stable Forms Provided Work Release Prescriptions See Medications Section Referrals TRACI CROOK MD Functional Status No functional status results. Allergies, Adverse Reactions, Alerts Allergen Type Severity Reaction Status Last Updated No Known Allergies Active 01/16/14 Immunizations No immunization records. Vital Signs Acute Vital Signs Vital Response Date/Time Blood Pressure 119/59 mm Hg Blood Pressure Mean 79 mm Hg Temperature (Fahrenheit) 98 degrees F (96.0 - 99.9) Temperature (Calculated Celsius) 36.6696 degrees C Temperature Source Oral Pulse Pulse Rate (adult) 72 bpm (60 - 100) Pulse Rate: ED 60 bpm Respiratory Rate 20 breaths per minute (10 - 20) Height (Feet) 5 ft Height (Inches) 4 in. Weight (Pounds) 120 lbs Ambulatory Vital Signs Vital Response Date/Time Height 5 ft 4.500 in 01/09/2014 10:36am Weight 108 lbs 01/09/2014 10:36am Blood Pressure 122/80 mm Hg 01/09/2014 10:36am Body Surface Area 1.48 m2 01/09/2014 10:36am Body Mass Index 18.3 kg/m2 01/09/2014 10:36am Results Test Source Date Result Interp. Ref. Range Comments Alanine Aminotransferase (ALT/SGPT) April 19, 2014 2:40pm 15 U/L N 5 -40 Albumin April 19, 2014 2:40pm 4.5 gm/dL N 3.2-5.0 Albumin/Globulin Ratio April 19, 2014 2:40pm 1.4 N 1.4-2.4 Alkaline Phosphatase April 19, 2014 2:40pm 62 U/L N 35-125 Anion Gap April 19, 2014 2:40pm 7.6 N 6-13 Aspartate Amino Transf (AST/SGOT) April 19, 2014 2:40pm 22 U/L N 5- 40 B-Type Natriuretic Peptide December 24, 2013 6:48pm 146 pg/mL H 15-100 BUN/Creatinine Ratio April 19, 2014 2:40pm 21.1 Basophils # (Auto) April 19, 2014 2:40pm 0.1 K/uL N 0-0.2 Basophils (%) (Auto) April 19, 2014 2:40pm 1.1 % H 0-1 Basophils (Manual) May 03, 2013 6:25pm 2.0 % H 0-1 COMMENT: 01 Blood Urea Nitrogen April 19, 2014 2:40pm 15 mg/dL N 8-25 Calcium Level April 19, 2014 2:40pm 9.4 mg/dL N 8.2-10.6 Carbon Dioxide Level April 19, 2014 2:40pm 26 mEq/L N 22-34 Chloride Level April 19, 2014 2:40pm 105 mEq/L N 98-116 Cholesterol Level March 18, [...] 2014 11:06am 0.7 ng/mL N 0.0-6.0 Creatinine April 19, 2014 2:40pm 0.71 mg/dL L 0.9-1.6 Eosinophils # (Auto) April 19, 2014 2:40pm 0.3 K/uL N 0-0.8 Eosinophils (%) (Auto) April 19, 2014 2:40pm 5.8 % N 0-7.0 Eosinophils (Manual) May 03, 2013 6:25pm 6.0 % N 0-7.0 COMMENT: 01 Globulin April 19, 2014 2:40pm 3.2 gm/dL H 2.0-3.0 HDL Cholesterol March 18, 2013 11:40am 50 mg/dL N 40-[address] LANDRY FAXED TO DR. CROOK AT 13:00, 03/18/13 BY MARCK. REPORT FAXED TO DR. CROOK AT 13:43, 03/18/13 BY MARCK. Hematocrit April 19, 2014 2:40pm 33.9 % L 38.0-47.0 Hemoglobin April 19, 2014 2:40pm 10.6 g/dL L 12.0-16.0 Human Chorionic Gonadotropin, Qual April 16, 2014 9:05pm Negative NEGATIVE Immature Blood Cells March 18, 2013 11:40am 0.1 K/uL N 0-0.[address] CROOKFAXED 1228 03/18/13 SSW LDL Cholesterol March 18, 2013 11:40am 103 mg/dL H 25-[address] LANDRY FAXED TO DR. CROOK AT 13:00, 03/18/13 BY MARCK. REPORT FAXED TO DR. CROOK AT 13:43, 03/18/13 BY MARCK. Lipase April 19, 2014 2:40pm 25 U/L N 8-57 Lymphocytes # (Auto) April 19, 2014 2:40pm 1.7 K/uL N 0.9-5.2 Lymphocytes (%) (Auto) April 19, 2014 2:40pm 37.8 % N 16.0-44.0 Lymphocytes (Manual) May 03, 2013 6:25pm 30.0 % N 21.0-51.0 COMMENT : 01 Magnesium Level December 22, 2013 11:30pm 2.1 mg/dL N 1.3-2.5 Mean Corpuscular Hemoglobin April 19, 2014 2:40pm 24.1 pg L 26.0- 33.0 Mean Corpuscular Hemoglobin Concent April 19, 2014 2:40pm 31.3 g/dL N 31.0-36.0 Mean Corpuscular Volume April 19, 2014 2:40pm 77.2 fL L 82.0-100.0 Mean Platelet Volume April 19, 2014 2:40pm 9.1 fL N 7.0-11.0 Monocytes # (Auto) April 19, 2014 2:40pm 0.5 K/uL N 0.16-1.0 Monocytes (%) (Auto) April 19, 2014 2:40pm 11.1 % H 2.0-9.0 Monocytes (Manual) May 03, 2013 6:25pm 12.0 % H 2.0-9.0 COMMENT: 01 Morphology Comment May 03, 2013 6:25pm Normal COMMENT: 01 Neutrophils May 03, 2013 6:25pm 50.0 % N 42.0-75.0 COMMENT: 01 Neutrophils # (Auto) April 19, 2014 2:40pm 2.0 K/uL N 1.9-8.0 Neutrophils (%) (Auto) April 19, 2014 2:40pm 44.0 % N 42.0-75.0 Nucleated Red Blood Cells # April 19, 2014 2:40pm 0.00 K/uL N 0.0- 0.012 Nucleated Red Blood Cells % April 19, 2014 2:40pm 0.0 /100WBC N 0-0 Platelet Count April 19, 2014 2:40pm 299 K/uL N 130-400 Platelet Estimate May 03, 2013 6:25pm Normal NORMAL COMMENT: 01 Potassium Level April 19, 2014 2:40pm 3.6 mEq/L N 3.5-5.1 Prothromb Time International Ratio September 03, 2013 10:55am 1.11 L 2.0- 3.0 Prothrombin Time September 03, 2013 10:55am 11.3 SECONDS N 9.0-12.0 RDW Standard Deviation April 19, 2014 2:40pm 40.2 fL N 36.4-46.3 Random Glucose April 19, 2014 2:40pm 77 mg/dL N 65-115 Red Blood Count April 19, 2014 2:40pm 4.39 M/uL N 4.20-5.40 Red Cell Distribution Width April 19, 2014 2:40pm 14.6 % H 11.5- 14.5 Sodium Level April 19, 2014 2:40pm 135 mEq/L N 133-145 Thyroid Stimulating Hormone (TSH) April 16, 2014 9:05pm 2.65 uIU/ml N 0.34-5.60 Total Bilirubin April 19, 2014 2:40pm 0.8 mg/dL N 0.1-1.3 Total Protein April 19, 2014 2:40pm 7.7 gm/dL N 6.0-8.4 Triglycerides Level March 18, 2013 11:40am 74 mg/dL N 45-[address] LANDRY FAXED TO DR. CROOK AT 13:00, 03/18/13 BY MARCK. REPORT FAXED TO DR. CROOK AT 13:43, 03/18/13 BY MARCK. Troponin I April 19, 2014 2:40pm 0.00 ng/mL N 0.0-0.02 Ur Tricyclic Antidepressants Screen April 19, 2014 [...] NEGATIVE SOURCE : URINE, CLEAN CATCH Urine Methamphetamines Screen April 19, 2014 2:40pm [...] NONE SOURCE: URINE, CLEAN CATCH Urine Specific [place] January 27, 2014 11:59pm 1.025 1.005-1.030 [...] 13:43, 03/18/13 BY MARCK. White Blood Count April 19, 2014 2:40pm 4.5 K/uL L 5.0-10.0 D-Dimer Quantitative (PE/DVT) April 19, 2014 2:40pm 177 ng/mL < 230 Results <230 ng/mL hilda oneill negativepredictability for DVT or PE Bedside Troponin I January 16, 2014 10:07am < 0.05 ng/mL 0.00-0.05 <0.05 ng/mL=NORMAL0.05 - 0.40 ng/mL=CARDIAC CONDITION >0.40 ng/mL=SUGGESTS AMI Urine Methadone Screen April 19, 2014 2:40pm Negative NEGATIVE Glomerular Filtration Rate Calc April 19, 2014 2:40pm > 60.00 mL/min MULTIPLY RESULT BY 1.210 IF THE PATIENT IS -AMERICANUnits are mL/ min/1.73 m2 > 60 Normal kidney function 30-59 Moderately decreased kidney function 15-29 Severely decreased kidney function <15 End-stage kidney failure Immature Granulocyte # (Auto) April 19, 2014 2:40pm 0.01 K/uL N 0- 0.40 Immature Granulocyte % (Auto) April 19, 2014 2:40pm 0.2 % N 0-0.5 Ur Tetrahydrocannabinol (THC) Scrn April 19, 2014 2:40pm Negative NEGATIVE Urine Culture Urine,Clean Catch January 27, 2014 11:59pm >100,000 CFU/ML MIXED BODY ADITYA AFTE... Procedures No known history of procedures. Encounters Encounter Location Date/Time Departed Emergency Room [facility] 05/15/14 10:44am Registered Clinic [facility] 04/23/14 10:28am Departed Emergency Room [facility] 04/22/14 12:26am Departed Emergency Room [facility] 04/19/14 2:00pm Departed Emergency Room [facility] 04/16/14 8:01pm Departed Emergency Room [facility] 04/13/14 5:01pm Departed Emergency Room [facility] 04/08/14 2:51pm Departed Emergency Room [facility] 03/02/14 1:55am Departed Emergency Room [facility] 01/29/14 11:26pm Departed Emergency Room [facility] 01/27/14 11:34pm Departed Emergency Room [facility] 01/25/14 6:23pm Registered Clinic [facility] 01/22/14 10:26am Departed Emergency Room [facility] 01/16/14 9:42am Departed Emergency Room [facility] 01/10/14 5:56pm Departed Emergency Room [facility] 01/09/14 11:54am Office Visit TRACI CROOK 01/09/14 10:30am Departed Emergency Room [facility] 01/08/14 8:00pm Departed Emergency Room [facility] 12/24/13 6:10pm Departed Emergency Room [facility] 12/22/13 9:50pm Departed Emergency Room [facility] 12/15/13 11:32am Departed Emergency Room [facility] 12/11/13 10:06pm Registered Clinic [facility] 11/21/13 11:19am Departed Emergency Room [facility] 11/16/13 8:55pm Departed Emergency Room [facility] 11/11/13 4:43pm Departed Emergency Room [facility] 11/05/13 4:02pm Office Visit TRACI CROOK 10/10/13 11:30am Departed Emergency Room [facility] 10/09/13 8:57am Departed Emergency Room [facility] 10/03/13 2:43[facility]/10/13 7:03pm Departed Emergency Room [facility] 09/03/13 10:42am Departed Emergency Room Term[facility] 08/04/13 9:16am Office Visit TRACI CROOK 07/08/13 2:15pm Office Visit TRACI CROOK 06/24/13 3:45pm Recent Diagnosis Torticollis (intermittent, spastic) traumatic, cur
--- OUTSIDE RECORDS SUMMARY | 2016-11-21 22:32 | XMS REPORT | Continuity of Care Document ---
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 Wildlife Protector Name Role Phone TRACI CROOK MD Unavailable [phone] Insurance Providers Payer Name Policy Number Subscriber Name Relationship Self Pay Insurance Chief Complaint and Reason for Visit Chief Complaint Chest Pain Reason for Visit [id number] Chest wall pain Problems Medical Problems Problem Onset Date [...] PO DAILY 30 Qty 11/21/13 12/18/13 Discontinued Tizanidine Hcl 4 Mg PO Every 6 hours as needed 15 Qty 12/17/13 Active Paroxetine Hcl 30 Mg PO DAILY [...] Sulfamethoxazole-Trimethoprim 1 Tab PO TWICE A DAY 10 Qty 01/14/14 Active Indomethacin 50 Mg PO TWICE A DAY 60 Qty 01/16/14 Active Social History Social History Problem Response Recorded Date/Time Hx Alcohol Use No 03/04/2013 12:35pm Smoking Status Never smoker 01/16/2014 9:47am Query Response Start Date Stop Date Smoking Status Never smoker Hospital Discharge Instructions No hospital discharge instructions. Plan of Care Discharge Date 01/16/14 12:21pm Disposition 01 HOME, SELF-CARE Condition at Discharge Stable Prescriptions See Medications Section Referrals TRACI CROOK MD Functional Status No functional status results. Allergies, Adverse Reactions, Alerts Allergen Type Severity Reaction Status Last Updated No Known Allergies Active 01/16/14 Immunizations No immunization records. Vital Signs Acute Vital Signs Vital Response Date/Time Blood Pressure / 01/16/2014 12:17pm Blood Pressure Mean 81 mm Hg 01/16/2014 12:17pm Pulse 01/16/2014 12:17pm Pulse Rate: ED 61 bpm 01/16/2014 12:17pm Respiratory Rate 16 breaths per minute (10 - 20) 01/16/2014 12:17pm Ambulatory Vital Signs Vital Response Date/Time Height 5 ft 4.500 in 01/09/2014 10:36am Weight 108 lbs 01/09/2014 10:36am Blood Pressure 122/80 mm Hg 01/09/2014 10:36am Body Surface Area 1.48 m2 01/09/2014 10:36am Body Mass Index 18.3 kg/m2 01/09/2014 10:36am Results No known relevant diagnostic tests, laboratory data and/or discharge summary. Procedures No known history of procedures. Encounters Encounter Location Date/Time Departed Emergency Room [facility] 01/16/14 9:42am Departed Emergency Room [facility] 01/10/14 5:56pm Departed Emergency Room [facility] 01/09/14 11:54am Office Visit TRACI CROOK 01/09/14 10:30am Departed Emergency Room [facility] 01/08/14 8:00pm Departed Emergency Room [facility] 12/24/13 6:10pm Departed Emergency Room [facility] 12/22/13 9:50pm Departed Emergency Room [facility] 12/15/13 11:32am Departed Emergency Room [facility] 12/11/13 10:06pm Registered Clinic [facility] 11/21/13 11:19am Departed Emergency Room [facility] 11/16/13 8:55pm Departed Emergency Room [facility] 11/11/13 4:43pm Departed Emergency Room [facility] 11/05/13 4:02pm Office Visit TRACI CROOK 10/10/13 11:30am Departed Emergency Room [facility] 10/09/13 8:57am Departed Emergency Room [facility] 10/03/13 2:43am Departed Emergency Room [facility] 09/10/13 7:03pm Departed Emergency Room [facility] 09/03/13 10:42am Departed Emergency Room [facility] 08/04/13 9:16am Office Visit TRACI CROOK 07/08/13 2:15pm Office Visit TRACI CROOK 06/24/13 3:45pm Office Visit TRACI CROOK 05/13/13 2:00pm Departed Emergency Room [facility] 05/03/13 5:49pm Office Visit TRACI CROOK 03/18/13 11:15am Office Visit TRACI CROOK 03/04/13 11:15am Recent Diagnosis
--- OUTSIDE RECORDS SUMMARY | 2016-11-21 22:32 | XMS REPORT | Continuity of Care Document ---
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 Professor Of Genetics Name Role Phone TRACI CROOK MD Primary Care Physician [phone] Insurance Providers Payer Name Policy Number Subscriber Name Relationship Self Pay Insurance Lisa Walters 01 Self / Same As Patient Chief Complaint and Reason for Visit Chief Complaint Medical Problem Minor Reason for Visit Dizziness Problems Medical Problems Problem Onset Date Status [...] Active Malaise Unknown Active Dizziness Unknown Active Medications Medication Dose Route Sig [...] Mg PO DAILY 30 Qty 04/16/14 Active Social History Social History Problem Response Recorded Date/Time Hx Alcohol Use No 03/04/2013 12:35pm Smoking Status Never smoker 04/16/2014 8:07pm Query Response Start Date Stop Date Smoking Status Never smoker Hospital Discharge Instructions No hospital discharge instructions. Plan of Care Discharge Date 04/16/14 10:48pm Disposition 01 HOME, SELF-CARE Condition at Discharge Stable Instructions/Education Provided Acute Headache (ED) Prescriptions See Medications Section Referrals TRACI CROOK MD Functional Status No functional status results. Allergies, Adverse Reactions, Alerts Allergen Type Severity Reaction Status Last Updated No Known Allergies Active 01/16/14 Immunizations No immunization records. Vital Signs Acute Vital Signs Vital Response Date/Time Blood Pressure 115/68 mm Hg 04/16/2014 10:48pm Blood Pressure Mean 84 mm Hg 04/16/2014 10:48pm Pulse 04/16/2014 10:48pm Pulse Rate: ED 86 bpm 04/16/2014 10:48pm Respiratory Rate 18 breaths per minute (10 - 20) 04/16/2014 10:48pm Ambulatory Vital Signs Vital Response Date/Time Height [...] Date Provider(s) HYDRATION IV INFUSION INIT completed 05/03/13 LUZ ELENA SMITH M.D. THER/PROPH/DIAG INJ IV PUSH completed 09/03/13 [...] Encounters Encounter Location Date/Time Departed Emergency Room [facility] 04/16/14 8:01pm Departed Emergency Room [facility] 04/13/14 5:01pm Departed Emergency Room [facility] 04/08/14 2:51pm Departed Emergency Room [facility] 03/02/14 1:55am Departed Emergency Room [facility] 01/29/14 11:26pm Departed Emergency Room [facility] 01/27/14 11:34pm Departed Emergency Room [facility] 01/25/14 6:23pm Registered Clinic [facility] 01/22/14 10:26am Departed Emergency Room [facility] 01/16/14 9:42am Departed Emergency Room [facility] 01/10/14 5:56pm Departed Emergency Room [facility] 01/09/14 11:54am Office Visit TRACI CROOK 01/09/14 10:30am Departed Emergency Room [facility] 01/08/14 8:00pm Departed Emergency Room [facility] 12/24/13 6:10pm Departed Emergency Room [facility] 12/22/13 9:50pm Departed Emergency Room [facility] 12/15/13 11:32am Departed Emergency Room [facility] 12/11/13 10:06pm Registered Clinic [facility] 11/21/13 11:19am Departed Emergency Room [facility] 11/16/13 8:55pm Departed Emergency Room [facility] 11/11/13 4:43pm Departed Emergency Room [facility] 11/05/13 4:02pm Office Visit TRACI CROOK 10/10/13 11:30am Departed Emergency Room [facility] 10/09/13 8:57am Departed Emergency Room [facility] 10/03/13 2:43am Departed Emergency Room [facility] 09/10/13 7:03pm Departed Emergency Room [facility] 09/03/13 10:42am Departed Emergency Room [facility] 08/04/13 9:16am Office Visit TRACI CROOK 07/08/13 2:15pm Office Visit TRACI CROOK 06/24/13 3:45pm Office Visit TRACI CROOK 05/13/13 2:00pm Departed Emergency Room [facility] 05/03/13 5:49pm Recent Diagnosis
--- OUTSIDE RECORDS SUMMARY | 2016-11-21 22:32 | XMS REPORT | Continuity of Care Document ---
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 Name Role Phone TRACI CROOK MD Unavailable [phone] Insurance Providers Payer Name Policy Number Subscriber Name Relationship Self Pay Insurance Chief Complaint and Reason for Visit Chief Complaint Hematuria Reason for Visit Urinary tract infection Problems Medical Problems Problem [...] TIMES A DAY 9 Qty 01/28/14 Active Ciprofloxacin Hcl 500 Mg PO TWICE A DAY 7 Days 01/30/14 Active Hydrocodone-Acetaminophen 1-2 Tab PO THREE TIMES A DAY 14 Qty for pain Active Social History Social History Problem Response Recorded Date/Time Hx Alcohol Use No 03/04/2013 12:35pm Smoking Status Never smoker 01/29/2014 11:28pm Query Response Start Date Stop Date Smoking Status Never smoker Hospital Discharge Instructions No hospital discharge instructions. Plan of Care Discharge Date 01/30/14 12:41am Disposition 01 HOME, SELF-CARE Condition at Discharge Stable Prescriptions See Medications Section Referrals TRACI CROOK MD Functional Status No functional status results. Allergies, Adverse Reactions, Alerts Allergen Type Severity Reaction Status Last Updated No Known Allergies Active 01/16/14 Immunizations No immunization records. Vital Signs Acute Vital Signs Vital Response Date/Time Blood Pressure 111/66 mm Hg 01/30/2014 12:27am Blood Pressure Mean 81 mm Hg 01/30/2014 12:27am Pulse 01/30/2014 12:27am Pulse Rate: ED 43 bpm 01/30/2014 12:27am Respiratory Rate 16 breaths per minute (10 - 20) 01/30/2014 12:27am Ambulatory Vital Signs Vital Response Date/Time Height [...] Encounters Encounter Location Date/Time Departed Emergency Room [facility] 01/29/14 11:26pm Departed Emergency Room [facility] 01/27/14 11:34pm Departed Emergency Room [facility] 01/25/14 6:23pm Registered Clinic [facility] 01/22/14 10:26am Departed Emergency Room [facility] 01/16/14 9:42am Departed Emergency Room [facility] 01/10/14 5:56pm Departed Emergency Room [facility] 01/09/14 11:54am Office Visit TRACI CROOK 01/09/14 10:30am Departed Emergency Room [facility] 01/08/14 8:00pm Departed Emergency Room [facility] 12/24/13 6:10pm Departed Emergency Room [facility] 12/22/13 9:50pm Departed Emergency Room [facility] 12/15/13 11:32am Departed Emergency Room [facility] 12/11/13 10:06pm Registered Clinic [facility] 11/21/13 11:19am Departed Emergency Room [facility] 11/16/13 8:55pm Departed Emergency Room [facility] 11/11/13 4:43pm Departed Emergency Room [facility] 11/05/13 4:02pm Office Visit TRACI CROOK 10/10/13 11:30am Departed Emergency Room [facility] 10/09/13 8:57am Departed Emergency Room [facility] 10/03/13 2:43am Departed Emergency Room [facility] 09/10/13 7:03pm Departed Emergency Room [facility] 09/03/13 10:42am Departed Emergency Room [facility] 08/04/13 9:16am Office Visit TRACI CROOK 07/08/13 2:15pm Office Visit TRACI CROOK 06/24/13 3:45pm Office Visit TRACI CROOK 05/13/13 2:00pm Departed Emergency Room [facility] 05/03/13 5:49pm Office Visit TRACI CROOK 03/18/13 11:15am Office Visit TRACI CROOK 03/04/13 11:15am Recent Diagnosis Urinary tract infection
--- OUTSIDE RECORDS SUMMARY | 2016-11-21 22:32 | XMS REPORT | Continuity of Care Document ---
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 Cylinder Filler Name Role Phone TRACI CROOK MD Primary Care Physician [phone] Insurance Providers Payer Name Policy Number Subscriber Name Relationship Self Pay Insurance Lisa Walters 01 Self / Same As Patient Chief Complaint and Reason for Visit Chief Complaint Arm Pain Reason for Visit [id number] Problems Medical Problems Problem Onset Date Status [...] Unknown Active Trapezius muscle strain Unknown Active Medications Medication Dose Route Sig [...] hours as needed 120 Qty 03/02/14 Active Cyclobenzaprine Hcl 5 Mg PO TWICE A DAY 15 Qty 04/08/14 Active Social History Social History Problem Response Recorded Date/Time Hx Alcohol Use No 03/04/2013 12:35pm Smoking Status Never smoker 04/08/2014 3:50pm Query Response Start Date Stop Date Smoking Status Never smoker Hospital Discharge Instructions No hospital discharge instructions. Plan of Care Discharge Date 04/08/14 5:13pm Disposition 01 HOME, SELF-CARE Condition at Discharge Improved/Stable Instructions/Education Provided Muscle Strain (ED) Prescriptions See Medications Section Referrals TRACI CROOK MD Functional Status No functional status results. Allergies, Adverse Reactions, Alerts Allergen Type Severity Reaction Status Last Updated No Known Allergies Active 01/16/14 Immunizations No immunization records. Vital Signs Acute Vital Signs Vital Response Date/Time Blood Pressure 114/77 mm Hg 04/08/2014 4:56pm Blood Pressure Mean 89 mm Hg 04/08/2014 4:56pm Pulse 04/08/2014 4:56pm Pulse Rate: ED 85 bpm 04/08/2014 4:56pm Ambulatory Vital Signs Vital Response Date/Time Height [...] ADDON completed 01/16/14 LUZ ELENA SMITH M.D. Encounters Encounter Location Date/Time Departed Emergency Room [facility] 04/08/14 2:51pm Departed Emergency Room [facility] 03/02/14 1:55am Departed Emergency Room [facility] 01/29/14 11:26pm Departed Emergency Room [facility] 01/27/14 11:34pm Departed Emergency Room [facility] 01/25/14 6:23pm Registered Clinic [facility] 01/22/14 10:26am Departed Emergency Room [facility] 01/16/14 9:42am Departed Emergency Room [facility] 01/10/14 5:56pm Departed Emergency Room [facility] 01/09/14 11:54am Office Visit TRACI CROOK 01/09/14 10:30am Departed Emergency Room [facility] 01/08/14 8:00pm Departed Emergency Room [facility] 12/24/13 6:10pm Departed Emergency Room [facility] 12/22/13 9:50pm Departed Emergency Room [facility] 12/15/13 11:32am Departed Emergency Room [facility] 12/11/13 10:06pm Registered Clinic [facility] 11/21/13 11:19am Departed Emergency Room [facility] 11/16/13 8:55pm Departed Emergency Room [facility] 11/11/13 4:43pm Departed Emergency Room [facility] 11/05/13 4:02pm Office Visit TRACI CROOK 10/10/13 11:30am Departed Emergency Room [facility] 10/09/13 8:57am Departed Emergency Room [facility] 10/03/13 2:43am Departed Emergency Room [facility] 09/10/13 7:03pm Departed Emergency Room [facility] 09/03/13 10:42am Departed Emergency Room [facility] 08/04/13 9:16am Office Visit TRACI CROOK 07/08/13 2:15pm Office Visit TRACI CROOK 06/24/13 3:45pm Office Visit TRACI CROOK 05/13/13 2:00pm Departed Emergency Room [facility] 05/03/13 5:49pm Recent Diagnosis
--- OUTSIDE RECORDS SUMMARY | 2016-11-21 22:32 | XMS REPORT | Continuity of Care Document ---
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 Home Lending Officer Name Role Phone TRACI CROOK MD Primary Care Physician [phone] Insurance Providers Payer Name Policy Number Subscriber Name Relationship Self Pay Insurance Chief Complaint and Reason for Visit Chief Complaint Medical Problem Minor Reason for Visit Electrical shock sensation Weakness [id number] Problems Medical Problems Problem Onset Date Status [...] Unknown Active Toe fracture, right Unknown Active Medications Medication Dose Route Sig [...] Otic Infection 7 Days 08/02/14 08/10/14 Discontinued Amoxicillin 500 Mg PO THREE TIMES A DAY For . 10 Days 08/02/14 Active Promethazine/Codeine 5 Ml PO Every 4 hours as needed For Cough 120 Qty 08/02/14 Active Social History Social History Problem Response Recorded Date/Time Hx Alcohol Use No 03/04/2013 12:35pm Smoking Status Never smoker 09/02/2014 2:54pm Query Response Start Date Stop Date Smoking Status Never smoker Hospital Discharge Instructions No hospital discharge instructions. Plan of Care Discharge Date 09/02/14 4:52pm Disposition 01 HOME, SELF-CARE Condition at Discharge Stable Instructions/Education Provided Chest Pain (ED) Toe Fracture (ED) Weakness (ED) Prescriptions See Medications Section Referrals TRACI CROOK MD Additional Instructions/Education Testing today was unremarkable and pacer seems to be working fine. Follow up with Dr. Swenson in 1-5 days as needed if with persistent chest pain. Return to the ER if symptoms worsen. Use Ibuprofen or Tylenol as needed for your toe pain - should heal in a week or so. Functional Status No functional status results. Allergies, Adverse Reactions, Alerts Allergen Type Severity Reaction Status Last Updated Vancomycin Allergy Mild RASH, REDNESS Active 09/02/14 Poison Adina/Poison [place] Extract Allergy Unknown Active 09/02/14 Immunizations No immunization records. Vital Signs Acute Vital Signs Vital Response Date/Time Blood Pressure 118/83 mm Hg Blood Pressure Mean 95 mm Hg Temperature (Fahrenheit) 98.2 degrees F (96.0 - 99.9) Temperature (Calculated Celsius) 36.20150 degrees C Temperature Source Oral Pulse Pulse Rate (adult) 79 bpm (60 - 100) Pulse Rate: ED 61 bpm Respiratory Rate 16 breaths per minute [...] Ref. Range Comments Alanine Aminotransferase (ALT/SGPT) September 02, 2014 3:35pm 27 U/L N 5- 40 Albumin September 02, 2014 3:35pm 4.4 gm/dL N 3.2-5.0 Albumin/Globulin Ratio September 02, 2014 3:35pm 1.3 L 1.4-2.4 Alkaline Phosphatase September 02, 2014 3:35pm 72 U/L N 35-125 Anion Gap September 02, 2014 3:35pm 13.9 H 6-13 Aspartate Amino Transf (AST/SGOT) September 02, 2014 3:35pm 38 U/L N 5- 40 B-Type Natriuretic Peptide December 24, 2013 6:48pm 146 pg/mL H 15-100 BUN/Creatinine Ratio September 02, 2014 3:35pm 17.1 Basophils # (Auto) September 02, 2014 3:35pm 0.1 K/uL N 0-0.2 Basophils (%) (Auto) September 02, 2014 3:35pm 1.1 % H 0-1 Basophils (Manual) May 03, 2013 6:25pm 2.0 % H 0-1 COMMENT: 01 Bedside Troponin I January 16, 2014 10:07am < 0.05 ng/mL 0.00-0.05 <0.05 ng/mL=NORMAL0.05 - 0.40 ng/mL=CARDIAC CONDITION >0.40 ng/mL=SUGGESTS AMI Blood Urea Nitrogen September 02, 2014 3:35pm 12 mg/dL N 8-25 Calcium Level September 02, 2014 3:35pm 9.5 mg/dL N 8.2-10.6 Carbon Dioxide Level September 02, 2014 3:35pm 23 mEq/L N 22-34 Chloride Level September 02, 2014 3:35pm 104 mEq/L N 98-116 Cholesterol Level March [...] REPORT FAXED TO DR. CROOK AT 13:43, 08/27/13 BY MARCK. Creatine Kinase MB January 09, 2014 11:06am 0.7 ng/mL N 0.0-6.0 Creatinine September 02, 2014 3:35pm 0.70 mg/dL L 0.9-1.6 D-Dimer Quantitative (PE/DVT) April 19, 2014 2:40pm 177 ng/mL < 230 Results <230 ng/mL yeild a negativepredictability for DVT or PE Eosinophils # (Auto) September 02, 2014 3:35pm 0.2 K/uL N 0-0.8 Eosinophils (%) (Auto) September 02, 2014 3:35pm 4.3 % N 0-7.0 Eosinophils (Manual) May 03, 2013 6:25pm 6.0 % N 0-7.0 COMMENT: 01 Globulin September 02, 2014 3:35pm 3.3 gm/dL H 2.0-3.0 Glomerular Filtration Rate Calc September 02, 2014 3:35pm > 60.00 mL/min MULTIPLY RESULT BY 1.210 [...] AT 13:43, 03/18/13 BY MARCK. Hematocrit September 02, 2014 3:35pm 30.4 % L 38.0-47.0 Hemoglobin September 02, 2014 3:35pm 9.5 g/dL L 12.0-16.0 Human Chorionic Gonadotropin, Qual April 16, 2014 9:05pm Negative NEGATIVE Immature Blood Cells March 18, 2013 11:40am 0.1 K/uL N 0-0.[address] CROOKFAXED 1228 03/18/13 SSW Immature Granulocyte # (Auto) September 02, 2014 3:35pm 0.01 K/uL N 0- 0.40 Immature Granulocyte % (Auto) September 02, 2014 3:35pm 0.2 % N 0-0.5 LDL Cholesterol March 18, 2013 11:40am 103 mg/dL H 25-[address] LANDRY FAXED TO DR. CROOK AT 13:00, 03/18/13 BY MARCK. REPORT FAXED TO DR. CROOK AT 13:43, 03/18/13 BY MARCK. Lipase June 07, 2014 10:50am 24 U/L N 8-57 Lymphocytes # (Auto) September 02, 2014 3:35pm 2.2 K/uL N 0.9-5.2 Lymphocytes (%) (Auto) September 02, 2014 3:35pm 40.2 % N 16.0-44.0 Lymphocytes (Manual) May 03, 2013 6:25pm 30.0 % N 21.0-51.0 COMMENT : 01 Magnesium Level December 22, 2013 11:30pm 2.1 mg/dL N 1.3-2.5 Mean Corpuscular Hemoglobin September 02, 2014 3:35pm 22.5 pg L 26.0- 33.0 Mean Corpuscular Hemoglobin Concent September 02, 2014 3:35pm 31.3 g/dL N 31.0-36.0 Mean Corpuscular Volume September 02, 2014 3:35pm 71.9 fL L 82.0-100.0 Mean Platelet Volume September 02, 2014 3:35pm 9.6 fL N 7.0-11.0 Monocytes # (Auto) September 02, 2014 3:35pm 0.4 K/uL N 0.16-1.0 Monocytes (%) (Auto) September 02, 2014 3:35pm 7.9 % N 2.0-9.0 Monocytes (Manual) May 03, 2013 6:25pm 12.0 % H 2.0-9.0 COMMENT: 01 Morphology Comment May 03, 2013 6:25pm Normal COMMENT: 01 Neutrophils May 03, 2013 6:25pm 50.0 % N 42.0-75.0 COMMENT: 01 Neutrophils # (Auto) September 02, 2014 3:35pm 2.6 K/uL N 1.9-8.0 Neutrophils (%) (Auto) September 02, 2014 3:35pm 46.3 % N 42.0-75.0 Nucleated Red Blood Cells # September 02, 2014 3:35pm 0.00 K/uL N 0.0- 0.012 Nucleated Red Blood Cells % September 02, 2014 3:35pm 0.0 /100WBC N 0-0 Platelet Count September 02, 2014 3:35pm 294 K/uL N 130-400 Platelet Estimate May 03, 2013 6:25pm Normal NORMAL COMMENT: 01 Potassium Level September 02, 2014 3:35pm 3.9 mEq/L N 3.5-5.1 Prothromb Time International Ratio September 03, 2013 10:55am 1.11 L 2.0- 3.0 Prothrombin Time September 03, 2013 10:55am 11.3 SECONDS N 9.0-12.0 RDW Standard Deviation September 02, 2014 3:35pm 43.6 fL N 36.4-46.3 Random Glucose September 02, 2014 3:35pm 65 mg/dL N 65-115 Red Blood Count September 02, 2014 3:35pm 4.23 M/uL N 4.20-5.40 Red Cell Distribution Width September 02, 2014 3:35pm 17.0 % H 11.5-14.5 Sodium Level September 02, 2014 3:35pm 137 mEq/L N 133-145 Thyroid Stimulating Hormone (TSH) April 16, 2014 9:05pm 2.65 uIU/ml N 0.34-5.60 Total Bilirubin September 02, 2014 3:35pm 0.3 mg/dL N 0.1-1.3 Total Protein September 02, 2014 3:35pm 7.7 gm/dL N 6.0-8.4 Triglycerides Level March 18, 2013 11:40am 74 mg/dL N 45-[address] LANDRY FAXED TO DR. CROOK AT 13:00, 03/18/13 BY MARCK. REPORT FAXED TO DR. CROOK AT 13:43, 03/18/13 BY MARCK. Troponin I September 02, 2014 3:35pm 0.00 ng/mL N 0.0-0.02 Ur Tetrahydrocannabinol (THC) [...] CLEAN CATCH Urine Human Chorionic Gonadotropin September 02, 2014 3:35pm Negative NEGATIVE Urine Ketones January 27, 2014 [...] NONE SOURCE: URINE, CLEAN CATCH Urine Specific [place] January 27, 2014 11:59pm 1.025 1.005-1.030 SOURCE [...] 03/18/13 BY MARCK. White Blood Count September 02, 2014 3:35pm 5.6 K/uL N 5.0-10.0 Urine Culture Urine,Clean Catch January 27, [...] Encounters Encounter Location Date/Time Departed Emergency Room [facility] 09/02/14 2:56pm Departed Emergency Room [facility] 08/02/14 1:09pm Departed Emergency Room [facility] 07/03/14 10:05pm Departed Emergency Room [facility] 06/07/14 10:34am Departed Emergency Room [facility] 05/15/14 10:44am Registered Clinic [facility] 04/23/14 10:28am Departed Emergency Room [facility] 04/22/14 12:26am Departed Emergency Room [facility] 04/19/14 2:00pm Departed Emergency Room [facility]ako [facility] 04/16/14 8:01pm Departed Emergency Room [facility] 04/13/14 5:01pm Departed Emergency Room [facility] 04/08/14 2:51pm Departed Emergency Room [facility] 03/02/14 1:55am Departed Emergency Room [facility] 01/29/14 11:26pm Departed Emergency Room [facility] 01/27/14 11:34pm Departed Emergency Room [facility] 01/25/14 6:23pm Registered Clinic [facility] 01/22/14 10:26am Departed Emergency Room [facility] 01/16/14 9:42am Departed Emergency Room [facility] 01/10/14 5:56pm Departed Emergency Room [facility] 01/09/14 11:54am Office Visit TRACI CROOK 01/09/14 10:30am Departed Emergency Room [facility]ako [facility] 01/08/14 8:00pm Departed Emergency Room [facility] 12/24/13 6:10pm Departed Emergency Room [facility] 12/22/13 9:50pm Departed Emergency Room [facility] 12/15/13 11:32am Departed Emergency Room [facility] 12/11/13 10:06pm Registered Clinic [facility] 11/21/13 11:19am Departed Emergency Room [place] [facility] 11/16/13 8:55pm Departed Emergency Room [place] [facility] 11/11/13 4:43pm Departed Emergency Room [place] [facility] 11/05/13 4:02pm Office Visit TRACI CROOK 10/10/13 11:30am Departed Emergency Room [facility] 10/09/13 8:57am Departed Emergency Room [facility] 10/03/13 2:43am [facility] 7:03pm Departed Emergency Room [place] [facility] 09/03/13 10:42am Recent Diagnosis
--- OUTSIDE RECORDS SUMMARY | 2016-11-21 22:33 | XMS REPORT | Continuity of Care Document ---
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 Emery Wheel Molder Name Role Phone TRACI CROOK MD Primary Care Physician [phone] Insurance Providers Payer Name Policy Number Subscriber Name Relationship Self Pay Insurance Lisa Walters Sumeet 01 Self / Same As Patient Chief Complaint and Reason for Visit Chief Complaint Syncope Reason for Visit Anemia chronic Anxiety disorder Atypical chest pain Problems Medical Problems Problem Onset Date [...] Unknown Active Atypical chest pain Unknown Active Medications Medication Dose Route [...] Mg PO DAILY 30 Qty 09/15/14 Active Lorazepam 0.5 Mg PO THREE TIMES A DAY For Anxiety 12 Qty 09/19/14 Active Social History Social History Problem Response Recorded Date/Time Hx Alcohol Use No 03/04/2013 12:35pm Smoking Status Never smoker 09/19/2014 9:50am Query Response Start Date Stop Date Smoking Status Never smoker Hospital Discharge Instructions No hospital discharge instructions. Plan of Care Discharge Date 09/19/14 11:11am Disposition 01 HOME, SELF-CARE Condition at Discharge Stable Instructions/Education Provided Chest Pain General Iron Rich Diet (ED) Iron Deficiency Anemia (GEN) Generalized Anxiety Disorder (ED) Forms Provided Work Release Prescriptions See Medications Section Referrals TRACI CROOK MD Additional Instructions/Education your anemia is very mild and you just need to try to eat more iron rich foods followup with ! Functional Status No functional status results. Allergies, Adverse Reactions, Alerts Allergen Type Severity Reaction Status Last Updated Vancomycin Adverse Reaction Intermediate RASH, REDNESS Active 09/14/14 Poison Adina/Poison [place] Extract Allergy Unknown Active 09/14/14 Immunizations No immunization records. Vital Signs Acute Vital Signs Vital Response Date/Time Blood Pressure 121/67 mm Hg Blood Pressure Mean 85 mm Hg Temperature (Fahrenheit) 97.8 degrees F (96.0 - 99.9) Temperature (Calculated Celsius) 36.08416 degrees C Temperature Source Oral Pulse Pulse Rate (adult) 79 bpm (60 - 100) Pulse Rate: ED 72 bpm Respiratory Rate 20 breaths per minute [...] NONE SOURCE: URINE, CLEAN CATCH Urine Specific [place] September 14, 2014 8:20am >=1.030 1.005-1.030 SOURCE: [...] completed 09/14/14 NEGRO QUIJANO M.D. THER/PROPH/DIAG INJ SC/IM completed [...] Encounters Encounter Location Date/Time Departed Emergency Room [facility] 09/19/14 9:54am Departed Emergency Room [facility] 09/14/14 8:03am Departed Emergency Room [facility] 09/02/14 2:56pm Departed Emergency Room [facility] 08/02/14 1:09pm Departed Emergency Room [facility] 07/03/14 10:05pm Departed Emergency Room [facility] 06/07/14 10:34am Departed Emergency Room [facility] 05/15/14 10:44am Registered Clinic [facility] 04/23/14 10:28am Departed Emergency Room [facility] 04/22/14 12:26am Departed Emergency Room [facility] 04/19/14 2:00pm Departed Emergency Room [facility] 04/16/14 8:01pm Departed Emergency Room [facility] 04/13/14 5:01pm Departed Emergency Room [facility] 04/08/14 2:51pm Departed Emergency Room [facility] 03/02/14 1:55am Departed Emergency Room [facility] 01/29/14 11:26pm Departed Emergency Room [facility] 01/27/14 11:34pm Departed Emergency Room [facility] 01/25/14 6:23pm Registered Clinic [facility] 01/22/14 10:26am Departed Emergency Room [facility] 01/16/14 9:42am Departed Emergency Room [facility] 01/10/14 5:56pm Departed Emergency Room [facility] 01/09/14 11:54am Office Visit TRACI CROOK 01/09/14 10:30am Departed Emergency Room [facility] 01/08/14 8:00pm Departed Emergency Room [facility] 12/24/13 6:10pm Departed Emergency Room [facility] 12/22/13 9:50pm Departed Emergency Room [facility] 12/15/13 11:32am Departed Emergency Room [facility] 12/11/13 10:06pm Registered Clinic [facility] 11/21/13 11:19am Departed Emergency Room [facility] 11/16/13 8:55pm Departed Emergency Room [facility] 11/11/13 4:43pm Departed Emergency Room [facility] 11/05/13 4:02pm Office Visit TRACI CROOK 10/10/13 11:30am Departed Emergency Room [facility] 10/09/13 8:57am Departed Emergency Room [facility] 10/03/13 2:43am Recent Diagnosis Anemia chronic
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
--- OUTSIDE RECORDS SUMMARY | 2016-11-21 22:33 | XMS REPORT | Continuity of Care Document ---
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 Assembly Cleaner Name Role Phone TRACI CROOK MD Primary Care Physician [phone] Insurance Providers Payer Name Policy Number Subscriber Name Relationship Self Pay Insurance Lisa Walters Sumeet 01 Self / Same As Patient Chief Complaint and Reason for Visit Chief Complaint Medication Refill Reason for Visit Anxiety disorder Chest wall pain History of bradycardia Problems Medical Problems Problem Onset Date Status [...] No 03/04/2013 12:35pm Smoking Status Never smoker 04/19/2014 2:01pm Query Response Start Date Stop Date Smoking Status Never smoker Hospital Discharge Instructions No hospital discharge instructions. Plan of Care Discharge Date 04/19/14 4:09pm Disposition 01 HOME, SELF-CARE Condition at Discharge Stable Instructions/Education Provided Chest Pain (ED) Generalized Anxiety Disorder (ED) Prescriptions See Medications Section Referrals TRACI CROOK MD Functional Status No functional status results. Allergies, Adverse Reactions, Alerts Allergen Type Severity Reaction Status Last Updated No Known Allergies Active 01/16/14 Immunizations No immunization records. Vital Signs Acute Vital Signs Vital Response Date/Time Blood Pressure 108/69 mm Hg 04/19/2014 3:54pm Blood Pressure Mean 82 mm Hg 04/19/2014 3:54pm Pulse 04/19/2014 3:54pm Pulse Rate: ED 63 bpm 04/19/2014 3:54pm Ambulatory Vital Signs Vital Response Date/Time Height [...] Encounters Encounter Location Date/Time Departed Emergency Room [facility] 04/19/14 2:00pm Departed Emergency Room [facility] 04/16/14 8:01pm Departed Emergency Room [facility] 04/13/14 5:01pm Departed Emergency Room [facility] 04/08/14 2:51pm Departed Emergency Room [facility] 03/02/14 1:55am Departed Emergency Room [facility] 01/29/14 11:26pm Departed Emergency Room [facility] 01/27/14 11:34pm Departed Emergency Room [facility] 01/25/14 6:23pm Registered Clinic [facility] 01/22/14 10:26am Departed Emergency Room [facility] 01/16/14 9:42am Departed Emergency Room [facility] 01/10/14 5:56pm Departed Emergency Room [facility] 01/09/14 11:54am Office Visit TRACI CROOK 01/09/14 10:30am Departed Emergency Room [facility] 01/08/14 8:00pm Departed Emergency Room [facility] 12/24/13 6:10pm Departed Emergency Room [facility] 12/22/13 9:50pm Departed Emergency Room [facility] 12/15/13 11:32am Departed Emergency Room [facility] 12/11/13 10:06pm Registered Clinic [facility] 11/21/13 11:19am Departed Emergency Room [facility] 11/16/13 8:55pm Departed Emergency Room [facility] 11/11/13 4:43pm Departed Emergency Room [facility] 11/05/13 4:02pm Office Visit TRACI CROOK 10/10/13 11:30am Departed Emergency Room [facility] 10/09/13 8:57am Departed Emergency Room [facility] 10/03/13 2:43am Departed Emergency Room [facility] 09/10/13 7:03pm Departed Emergency Room [facility] 09/03/13 10:42am Departed Emergency Room [facility] 08/04/13 9:16am Office Visit TRACI CROOK 07/08/13 2:15pm Office Visit TRACI CROOK 06/24/13 3:45pm Office Visit TRACI CROOK 05/13/13 2:00pm Departed Emergency Room [facility] 05/03/13 5:49pm Recent Diagnosis
--- OUTSIDE RECORDS SUMMARY | 2016-11-21 22:33 | XMS REPORT | Continuity of Care Document ---
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 Fitting Room Supervisor Name Role Phone TRACI CROOK MD Primary Care Physician [phone] Insurance Providers Payer Name Policy Number Subscriber Name Relationship Self Pay Insurance Lisa Walters 01 Self / Same As Patient Chief Complaint and Reason for Visit Chief Complaint Medical Problem Minor Reason for Visit Anxiety disorder Problems Medical Problems Problem Onset Date Status [...] No 03/04/2013 12:35pm Smoking Status Never smoker 04/22/2014 12:26am Query Response Start Date Stop Date Smoking Status Never smoker Hospital Discharge Instructions No hospital discharge instructions. Plan of Care Discharge Date 04/22/14 1:05am Disposition 01 HOME, SELF-CARE Condition at Discharge Stable Instructions/Education Provided Generalized Anxiety Disorder (ED) Prescriptions See Medications Section Referrals TRACI CROOK MD Functional Status No functional status results. Allergies, Adverse Reactions, Alerts Allergen Type Severity Reaction Status Last Updated No Known Allergies Active 01/16/14 Immunizations No immunization records. Vital Signs Acute Vital Signs Vital Response Date/Time Blood Pressure 130/87 mm Hg Blood Pressure Mean 101 mm Hg Temperature (Fahrenheit) 98.0 degrees F (96.0 - 99.9) Temperature (Calculated Celsius) 36.60251 degrees C Temperature Source Oral Pulse Pulse Rate (adult) 76 bpm (60 - 100) Pulse Rate: ED 90 bpm Respiratory Rate 20 breaths per minute (10 - 20) Height (Feet) 5 ft Height (Inches) 4 in. Weight (Pounds) 116 lbs Ambulatory Vital Signs Vital Response Date/Time [...] mg/dL N 40-[address] ALNDRY FAXED TO DR. CROOK AT 13:00, 03/18/13 [...] NONE SOURCE: URINE, CLEAN CATCH Urine Specific [place] January 27, 2014 11:59pm 1.025 1.005-1.030 SOURCE [...] 14.8 N 5-[address] KUHNSREPORT FAXED TO DR. CROOK AT 13:00, 03/18/13 [...] PUSH completed 04/19/14 LUZ ELENA SMITH M.D. HYDRATION IV INFUSION INIT completed 05/03/13 LUZ [...] QUIJANO M.D. THER/PROPH/DIAG INJ SC/IM completed 11/16/13 NEGOR QUIJANO M.D. THER/PROPH/DIAG INJ SC/IM completed 11/21/13 [...] Location Date/Time Registered Emergency Room [facility] 04/22/14 12:26am Departed Emergency Room [facility] 04/19/14 2:00pm Departed Emergency Room [facility] 04/16/14 8:01pm Departed Emergency Room [facility] 04/13/14 5:01pm Departed Emergency Room [facility] 04/08/14 2:51pm Departed Emergency Room [facility] 03/02/14 1:55am Departed Emergency Room [facility] 01/29/14 11:26pm Departed Emergency Room [facility] 01/27/14 11:34pm Departed Emergency Room [facility] 01/25/14 6:23pm Registered Clinic [facility] 01/22/14 10:26am Departed Emergency Room [facility] 01/16/14 9:42am Departed Emergency Room [facility] 01/10/14 5:56pm Departed Emergency Room [facility] 01/09/14 11:54am Office Visit TRACI CROOK 01/09/14 10:30am Departed Emergency Room [facility] 01/08/14 8:00pm Departed Emergency Room [facility] 12/24/13 6:10pm Departed Emergency Room [facility] 12/22/13 9:50pm Departed Emergency Room [facility] 12/15/13 11:32am Departed Emergency Room [facility] 12/11/13 10:06pm Registered Clinic [facility] 11/21/13 11:19am Departed Emergency Room [facility] 11/16/13 8:55pm Departed Emergency Room [facility] 11/11/13 4:43pm Departed Emergency Room [facility] Flako Ordo [facility] 11/05/13 4:02pm Office Visit TRACI CROOK 10/10/13 11:30am Departed Emergency Room [facility] 10/09/13 8:57am Departed Emergency Room [facility] 10/03/13 2:43am Departed Emergency Room [facility] 09/10/13 7:03pm Departed Emergency Room [facility] 09/03/13 10:42am Departed Emergency Room [facility] 08/04/13 9:16am Office Visit TRACI CROOK 07/08/13 2:15pm Office Visit TRACI CROOK 06/24/13 3:45pm Office Visit TRACI CROOK 05/13/13 2:00pm Departed Emergency Room [facility] 05/03/13 5:49pm Recent Diagnosis
--- OUTSIDE RECORDS SUMMARY | 2016-11-21 22:33 | XMS REPORT | Continuity of Care Document ---
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 Web Press Operator Apprentice Name Role Phone TRACI CROOK MD Unavailable [phone] Insurance Providers Payer Name Policy Number Subscriber Name Relationship Self Pay Insurance Chief Complaint and Reason for Visit Chief Complaint Chest Pain Reason for Visit Atypical chest pain [id number] Problems Medical Problems Problem Onset Date Status [...] Unknown Active Epigastric abdominal pain Unknown Active Medications Medication Dose [...] DAY For . 7 Days 01/30/14 Discontinued Albuterol 1-2 Puffs INH Every 4 hours as needed For Dyspnea 1 Qty 03/02 Active Paroxetine Hcl 30 Mg PO DAILY 30 Qty 04/16/14 05/25/14 Discontinued Tramadol Hcl 1-2 Tab OR Every 6 hours as needed 20 Qty 05/14/14 Discontinued Paroxetine Hcl 30 Mg PO DAILY 30 Qty 05/25/14 Active Tramadol Hcl 1-2 Tab OR Every 6 hours as needed 20 Qty 05/25/14 Active Diclofenac Sodium 75 Mg PO Every 12 hours as needed PRN PAIN 20 Qty Active Social History Social History Problem Response Recorded Date/Time Hx Alcohol Use No 03/04/2013 12:35pm Smoking Status Never smoker 06/07/2014 10:44am Query Response Start Date Stop Date Smoking Status Never smoker Hospital Discharge Instructions No hospital discharge instructions. Plan of Care Discharge Date 06/07/14 1:29pm Disposition 01 HOME, SELF-CARE Condition at Discharge Stable Prescriptions See Medications Section Referrals TRACI CROOK MD Functional Status No functional status results. Allergies, Adverse Reactions, Alerts Allergen Type Severity Reaction Status Last Updated No Known Allergies Active 01/16/14 Immunizations No immunization records. Vital Signs Acute Vital Signs Vital Response Date/Time Blood Pressure 120/74 mm Hg Blood Pressure Mean 89 mm Hg Temperature (Fahrenheit) 97.8 degrees F (96.0 - 99.9) Temperature (Calculated Celsius) 36.79976 degrees C Temperature Source Oral Pulse Pulse [...] DR. CROOK AT 13:43, 03/18/13 BY KJ. Hematocrit June 07, 2014 10:50am 29.5 % [...] NONE SOURCE: URINE, CLEAN CATCH Urine Specific [place] January 27, 2014 11:59pm 1.025 1.005-1.030 SOURCE [...] Date/Time Departed Emergency Room [facility] 06/07/14 10:34am Departed Emergency Room [facility] 05/15/14 10:44am Registered Clinic [facility] 04/23/14 10:28am Departed Emergency Room [facility] 04/22/14 12:26am Departed Emergency Room [facility] 04/19/14 2:00pm Departed Emergency Room [facility] 04/16/14 8:01pm Departed Emergency Room [facility] 04/13/14 5:01pm Departed Emergency Room [facility] 04/08/14 2:51pm Departed Emergency Room [facility] 03/02/14 1:55am Departed Emergency Room [facility] 01/29/14 11:26pm Departed Emergency Room [facility] 01/27/14 11:34pm Departed Emergency Room [facility] 01/25/14 6:23pm Registered Clinic [facility] 01/22/14 10:26am Departed Emergency Room [facility] 01/16/14 9:42am Departed Emergency Room [facility] 01/10/14 5:56pm Departed Emergency Room [facility] 01/09/14 11:54am Office Visit TRACI CROOK 01/09/14 10:30am Departed Emergency Room [facility] 01/08/14 8:00pm Departed Emergency Room [facility] 12/24/13 6:10pm Departed Emergency Room [facility] 12/22/13 9:50pm Departed Emergency Room [facility] 12/15/13 11:32am Departed Emergency Room [facility] 12/11/13 10:06pm Registered Clinic [facility] 11/21/13 11:19am Departed Emergency Room [facility] 11/16/13 8:55pm Departed Emergency Room [facility] 11/11/13 4:43pm Departed Emergency Room [facility] 11/05/13 4:02pm Office Visit TRACI CROOK 10/10/13 11:30am Departed Emergency Room [facility] 10/09/13 8:57am Departed Emergency Room [facility] 10/03/13 2:43am Departed Emergency Room [facility] RdMadhuri Rodo [facility] 09/10/13 7:03pm Departed Emergency Room [facility] 09/03/13 10:42am Departed Emergency Room [facility] 08/04/13 9:16am Office Visit TRACI CROOK 07/08/13 2:15pm Office Visit TRACI CROOK 06/24/13 3:45pm Recent Diagnosis
--- OUTSIDE RECORDS SUMMARY | 2016-11-21 22:34 | XMS REPORT | Continuity of Care Document ---
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 Chain Maker Machine Name Role Phone TRACI CROOK MD Primary Care Physician [phone] Insurance Providers Payer Name Policy Number Subscriber Name Relationship Workers Compensation [id number] CarlineLisa Sumeet 08 Employee Chief Complaint and Reason for Visit Chief Complaint Flank Pain Reason for Visit Hematuria Abdominal pain Constipation Problems Medical Problems Problem Onset Date Status [...] Abdominal pain Unknown Active Constipation Unknown Active Medications Medication Dose Route Sig [...] hours as needed 20 Qty 10/05/14 Discontinued Tramadol Hcl 50 Mg OR Every 6 hours as needed 20 Qty 10/23/14 Active Albuterol 1 Ea INH NEEDED 11/03/14 Active Social History Social History Problem Response Recorded Date/Time Hx Alcohol Use No 03/04/2013 12:35pm Smoking Status Never smoker 11/03/2014 8:44pm Query Response Start Date Stop Date Smoking Status Never smoker Hospital Discharge Instructions No hospital discharge instructions. Plan of Care Discharge Date 11/04/14 12:37am Disposition 01 HOME, SELF-CARE Condition at Discharge Stable Instructions/Education Provided Constipation (ED) Acute Hematuria (ED) Prescriptions See Medications Section Referrals TRACI CROOK MD Additional Instructions/Education Call your doctor's office and let him know about today's ER visit. Return if any worsening symptoms. Functional Status No functional status results. Allergies, Adverse Reactions, Alerts Allergen Type Severity Reaction Status Last Updated Vancomycin Adverse Reaction Intermediate RASH, REDNESS Active 09/14/14 IRON SUPPLEMENTS Adverse Reaction Unknown BURNING RASH Active 11/03/14 Immunizations No immunization records. Vital Signs Acute Vital Signs Vital Response Date/Time Blood Pressure 113/70 mm Hg Blood Pressure Mean 84 mm Hg Temperature (Fahrenheit) 98.0 degrees F (96.0 - 99.9) Temperature (Calculated Celsius) 36.55597 degrees C Temperature Source Oral Pulse Pulse Rate (adult) 79 bpm (60 - 100) Pulse Rate: ED 60 bpm Respiratory Rate 20 breaths per minute (10 - 20) Height (Feet) 5 ft Height (Inches) 4 in. Weight (Pounds) 125 lbs Ambulatory Vital Signs Vital Response Date/Time Height 5 ft 4.500 in 01/09/2014 10:36am Weight 108 lbs 01/09/2014 10:36am Blood Pressure 122/80 mm Hg 01/09/2014 10:36am Body Surface Area 1.48 m2 01/09/2014 10:36am Body Mass Index 18.3 kg/m2 01/09/2014 10:36am Results Test Source Date Result Interp. Ref. Range Comments Alanine Aminotransferase (ALT/SGPT) November 03, 2014 9:33pm 14 U/L N 5-40 Albumin November 03, 2014 9:33pm 4.0 gm/dL N 3.2-5.0 Albumin/Globulin Ratio November 03, 2014 9:33pm 1.3 L 1.4-2.4 Alkaline Phosphatase November 03, 2014 9:33pm 65 U/L N 35-125 Anion Gap November 03, 2014 9:33pm 10.0 N 6-13 Aspartate Amino Transf (AST/SGOT) November 03, 2014 9:33pm 19 U/L N 5-40 B-Type Natriuretic Peptide December 24, 2013 6:48pm 146 pg/mL H 15-100 BUN/Creatinine Ratio November 03, 2014 9:33pm 19.4 Basophils # (Auto) November 03, 2014 9:33pm 0.0 K/uL N 0-0.2 Basophils (%) (Auto) November 03, 2014 9:33pm 0.8 % N 0-1 Basophils (Manual) May 03, 2013 6:25pm 2.0 % H 0-1 COMMENT: 01 Bedside Troponin I January 16, 2014 10:07am < 0.05 ng/mL 0.00-0.05 <0.05 ng/mL=NORMAL0.05 - 0.40 ng/mL=CARDIAC CONDITION >0.40 ng/mL=SUGGESTS AMI Blood Urea Nitrogen November 03, 2014 9:33pm 14 mg/dL N 8-25 Calcium Level November 03, 2014 9:33pm 9.1 mg/dL N 8.2-10.6 Carbon Dioxide Level November 03, 2014 9:33pm 29 mEq/L N 22-34 Chloride Level November 03, 2014 9:33pm 102 mEq/L N 98-116 Cholesterol Level March [...] 11:06am 0.7 ng/mL N 0.0-6.0 Creatinine November 03, 2014 9:33pm 0.72 mg/dL L 0.9-1.6 D-Dimer Quantitative (PE/DVT) April 19, 2014 2:40pm 177 ng/mL < 230 Results <230 ng/mL yeild a negativepredictability for DVT or PE Eosinophils # (Auto) November 03, 2014 9:33pm 0.2 K/uL N 0-0.8 Eosinophils (%) (Auto) November 03, 2014 9:33pm 4.9 % N 0-7.0 Eosinophils (Manual) May 03, 2013 6:25pm 6.0 % N 0-7.0 COMMENT: 01 Globulin November 03, 2014 9:33pm 3.0 gm/dL N 2.0-3.0 Glomerular Filtration Rate Calc November 03, 2014 9:33pm > 60.00 mL/min MULTIPLY RESULT BY 1.210 [...] AT 13:43, 03/18/13 BY MARCK. Hematocrit November 03, 2014 9:33pm 27.5 % L 38.0-47.0 Hemoglobin November 03, 2014 9:33pm 8.3 g/dL L 12.0-16.0 Human Chorionic Gonadotropin, Qual April 16, 2014 9:05pm Negative NEGATIVE Immature Blood Cells March 18, 2013 11:40am 0.1 K/uL N 0-0.[address] CROOKFAXED 1228 03/18/13 SSW Immature Granulocyte # (Auto) November 03, 2014 9:33pm 0.01 K/uL N 0-0.40 Immature Granulocyte % (Auto) November 03, 2014 9:33pm 0.2 % N 0-0.5 LDL Cholesterol March 18, 2013 11:40am 103 mg/dL H 25-[address] LANDRY FAXED TO DR. CROOK AT 13:00, 03/18/13 BY MARCK. REPORT FAXED TO DR. CROOK AT 13:43, 03/18/13 BY MARCK. Lipase November 03, 2014 9:33pm 17 U/L N 8-57 Lymphocytes # (Auto) November 03, 2014 9:33pm 2.1 K/uL N 0.9-5.2 Lymphocytes (%) (Auto) November 03, 2014 9:33pm 42.5 % N 16.0-44.0 Lymphocytes (Manual) May 03, 2013 6:25pm 30.0 % N 21.0-51.0 COMMENT : 01 Magnesium Level December 22, 2013 11:30pm 2.1 mg/dL N 1.3-2.5 Mean Corpuscular Hemoglobin November 03, 2014 9:33pm 21.3 pg L 26.0-33.0 Mean Corpuscular Hemoglobin Concent November 03, 2014 9:33pm 30.2 g/dL L 31.0-36.0 Mean Corpuscular Volume November 03, 2014 9:33pm 70.5 fL L 82.0-100.0 Mean Platelet Volume November 03, 2014 9:33pm 9.4 fL N 7.0-11.0 Monocytes # (Auto) November 03, 2014 9:33pm 0.6 K/uL N 0.16-1.0 Monocytes (%) (Auto) November 03, 2014 9:33pm 11.7 % H 2.0-9.0 Monocytes (Manual) May 03, 2013 6:25pm 12.0 % H 2.0-9.0 COMMENT: 01 Morphology Comment May 03, 2013 6:25pm Normal COMMENT: 01 Neutrophils May 03, 2013 6:25pm 50.0 % N 42.0-75.0 COMMENT: 01 Neutrophils # (Auto) November 03, 2014 9:33pm 2.0 K/uL N 1.9-8.0 Neutrophils (%) (Auto) November 03, 2014 9:33pm 39.9 % L 42.0-75.0 Nucleated Red Blood Cells # November 03, 2014 9:33pm 0.00 K/uL N 0.0-0.012 Nucleated Red Blood Cells % November 03, 2014 9:33pm 0.0 /100WBC N 0-0 Platelet Count November 03, 2014 9:33pm 282 K/uL N 130-400 Platelet Estimate May 03, 2013 6:25pm Normal NORMAL COMMENT: 01 Potassium Level November 03, 2014 9:33pm 4.0 mEq/L N 3.5-5.1 Prothromb Time International Ratio September 03, 2013 10:55am 1.11 L 2.0- 3.0 Prothrombin Time September 03, 2013 10:55am 11.3 SECONDS N 9.0-12.0 RDW Standard Deviation November 03, 2014 9:33pm 41.5 fL N 36.4-46.3 Random Glucose November 03, 2014 9:33pm 88 mg/dL N 65-115 Red Blood Count November 03, 2014 9:33pm 3.90 M/uL L 4.20-5.40 Red Cell Distribution Width November 03, 2014 9:33pm 16.4 % H 11.5-14.5 Sodium Level November 03, 2014 9:33pm 137 mEq/L N 133-145 Thyroid Stimulating Hormone (TSH) September 14, 2014 8:20am 1.94 uIU/ml N 0.34-5.60 Total Bilirubin November 03, 2014 9:33pm 0.7 mg/dL N 0.1-1.3 Total Protein November 03, 2014 9:33pm 7.0 gm/dL N 6.0-8.4 Triglycerides Level March [...] 2014 2:40pm Negative NEGATIVE Urine Appearance November 03, 2014 9:00pm Clear SOURCE: URINE, CLEAN CATCH Urine Bacteria November 03, 2014 9:00pm 2+ /hpf H NONE THIS SPECIMEN MEETS MEDICAL STAFF CRITERIAFOR A URINE CULTURE. A CULTURE HAS BEEN SET. Urine Barbiturates Screen April 19, 2014 2:40pm Negative NEGATIVE Urine Benzodiazepines Screen April 19, 2014 2:40pm Negative NEGATIVE Urine Bilirubin November 03, 2014 9:00pm Negative NEGATIVE SOURCE: URINE , CLEAN CATCH Urine Casts January 27, 2014 11:59pm None /lpf NONE SOURCE: URINE, CLEAN CATCH Urine Cocaine Screen April 19, 2014 2:40pm Negative NEGATIVE Urine Color November 03, 2014 9:00pm Yellow SOURCE: URINE, CLEAN CATCH Urine Crystals January 27, 2014 11:59pm None /hpf NONE SOURCE: URINE, CLEAN CATCH Urine Epithelial Cells November 03, 2014 9:00pm Many /lpf SOURCE: URINE, CLEAN CATCH Urine Glucose (UA) November 03, 2014 9:00pm Negative NEGATIVE SOURCE: URINE, CLEAN CATCH Urine Human Chorionic Gonadotropin November 03, 2014 9:01pm Negative NEGATIVE Urine Ketones November 03, 2014 9:00pm Negative NEGATIVE SOURCE: URINE, CLEAN CATCH Urine Leukocyte Esterase November 03, 2014 9:00pm Negative NEGATIVE SOURCE: URINE, CLEAN CATCH Urine Methadone Screen April 19, 2014 2:40pm Negative NEGATIVE Urine Methamphetamines Screen April 19, 2014 2:40pm Negative NEGATIVE Urine Mucus November 03, 2014 9:00pm 2+ /lpf NONE SOURCE: URINE, CLEAN CATCH Urine Nitrate November 03, 2014 9:00pm Negative NEGATIVE SOURCE: URINE, CLEAN CATCH Urine Occult Blood November 03, 2014 9:00pm 1+ H NEGATIVE SOURCE: URINE, CLEAN CATCH Urine Opiates Screen April 19, 2014 2:40pm Negative NEGATIVE Urine Other January 27, 2014 11:59pm None SOURCE: URINE, CLEAN CATCH Urine Phencyclidine Screen April 19, 2014 2:40pm Negative NEGATIVE Urine Propoxyphene Screen April 19, 2014 2:40pm Negative NEGATIVE Urine Protein November 03, 2014 9:00pm Negative NEGATIVE SOURCE: URINE, CLEAN CATCH Urine RBC November 03, 2014 9:00pm 5-10 /hpf H NONE SOURCE: URINE, CLEAN CATCH Urine Specific [place] November 03, 2014 9:00pm 1.020 1.005-1.030 SOURCE : URINE, CLEAN CATCH Urine Urobilinogen November 03, 2014 9:00pm 0.2 E.U./dL 0.2-1.0 SOURCE: URINE, CLEAN CATCH Urine WBC November 03, 2014 9:00pm 0-1 /hpf NONE SOURCE: URINE, CLEAN CATCH Urine WBC Clumps January 27, 2014 11:59pm 0-1 /hpf NONE SOURCE: URINE, CLEAN CATCH Urine pH November 03, 2014 9:00pm 6.0 4.5-8.0 SOURCE: URINE, CLEAN CATCH VLDL Cholesterol March 18, 2013 11:40am 14.8 N 5-[address] LANDRY FAXED TO DR. CROOK AT 13:00, 03/18/13 BY MARCK. REPORT FAXED TO DR. CROOK AT 13:43, 03/18/13 BY MARCK. White Blood Count November 03, 2014 9:33pm 4.9 K/uL L 5.0-10.0 Urine Culture Urine,Clean Catch [...] Encounter Location Date/Time Departed Emergency Room [facility] K[facility] 11/03/14 8:37pm Departed Emergency Room uJli Koehler [facility] 09/19/14 9:54am Departed Emergency Room Juli BMadhuri [facility] 09/14/14 8:03am Departed Emergency Room Juli BMadhuri [facility] 09/02/14 2:56pm Departed Emergency Room Julijuan Koehler [facility] 08/02/14 1:09pm Departed Emergency Room Juli BMadhuri [facility] 07/03/14 10:05pm Departed Emergency Room Juli Flako [facility] 06/07/14 10:34am Departed Emergency Room Juli BMadhuri [facility] 05/15/14 10:44am Registered Clinic Juli BMadhuri [facility] 04/23/14 10:28am Departed Emergency Room Juli BMadhuri [facility] 04/22/14 12:26am Departed Emergency Room Juli BMadhuri [facility] 04/19/14 2:00pm Departed Emergency Room Juli BMadhuri [facility] 04/16/14 8:01pm Departed Emergency Room Juli BMadhuri [facility] 04/13/14 5:01pm Departed Emergency Room Juli BMadhuri [facility] 04/08/14 2:51pm Departed Emergency Room Juli BMadhuri [facility] 03/02/14 1:55am Departed Emergency Room Juli BMadhuri [facility] 01/29/14 11:26pm Departed Emergency Room Juli BMadhuri [facility] 01/27/14 11:34pm Departed Emergency Room Juli Flako [facility] 01/25/14 6:23pm Registered Clinic Julijuan Koehler [facility] 01/22/14 10:26am Departed Emergency Room Juli BMadhuri [facility] 01/16/14 9:42am Departed Emergency Room Juli [facility]adh[facility] 01/10/14 5:56pm Departed Emergency Room [facility] B[facility] 01/09/14 11:54am Office Visit TRACI CROOK 01/09/14 10:30am Departed Emergency Room Julijuan Koehler [facility] 01/08/14 8:00pm Departed Emergency Room [facility] B[facility] 12/24/13 6:10pm Departed Emergency Room [facility] 12/22/13 9:50pm Departed Emergency Room [facility] 12/15/13 11:32am Departed Emergency Room [facility] 12/11/13 10:06pm Registered Clinic [facility] 11/21/13 11:19am Departed Emergency Room [facility] 11/16/13 8:55pm Departed Emergency Room [facility] 11/11/13 4:43pm Departed Emergency Room [facility] 11/05/13 4:02pm Recent Diagnosis
--- OUTSIDE RECORDS SUMMARY | 2016-11-21 22:34 | XMS REPORT | Continuity of Care Document ---
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 Tobacco Drying Machine Operator Name Role Phone TRACI CROOK MD Unavailable [phone] Insurance Providers Payer Name Policy Number Subscriber Name Relationship Self Pay Insurance Chief Complaint and Reason for Visit Chief Complaint Neck Pain Reason for Visit Chronic neck pain Problems Medical Problems Problem Onset Date [...] Unknown Active Chronic neck pain Unknown Active Medications Medication Dose Route [...] hours as needed 20 Qty 05/25/14 Discontinued Diclofenac Sodium 75 Mg PO Every 12 hours as needed PRN PAIN 20 Qty Active Ibuprofen 600 Mg PO THREE TIMES A DAY 30 Qty 07/01/14 Active Azithromycin 250 Mg PO DIRECTED 6 Qty Take 2 tablets now, then one tablet a day for the next 4 07/02/14 Active Baclofen 10 Mg PO Every 8 hours as needed For spasms/pain 15 Qty Active Hydrocodone-Acetaminophen 1 Tab PO Every 6 hours as needed For Pain 10 Qty 07/03/14 Active Social History Social History Problem Response Recorded Date/Time Hx Alcohol Use No 03/04/2013 12:35pm Smoking Status Never smoker 07/03/2014 10:09pm Query Response Start Date Stop Date Smoking Status Never smoker Hospital Discharge Instructions No hospital discharge instructions. Plan of Care Discharge Date 07/03/14 11:13pm Disposition 01 HOME, SELF-CARE Condition at Discharge Stable Forms Provided Work Release Prescriptions See Medications Section Referrals TRACI CROOK MD Additional Instructions/Education talk to your doctor about pain management! Functional Status No functional status results. Allergies, Adverse Reactions, Alerts Allergen Type Severity Reaction Status Last Updated No Known Allergies Active 01/16/14 Immunizations No immunization records. Vital Signs Acute Vital Signs Vital Response Date/Time Blood Pressure 151/82 mm Hg Blood Pressure Mean 105 mm Hg Temperature (Fahrenheit) 98.2 degrees F (96.0 - 99.9) Temperature (Calculated Celsius) 36.91843 degrees C Temperature Source Oral Pulse Pulse Rate (adult) 79 bpm (60 - 100) Pulse Rate: ED 92 bpm Respiratory Rate 18 breaths per minute (10 - 20) Height (Feet) 5 ft Height (Inches) 4 in. Weight (Pounds) 122 lbs Ambulatory Vital Signs Vital Response Date/Time [...] NONE SOURCE: URINE, CLEAN CATCH Urine Specific [place] January 27, 2014 11:59pm 1.025 1.005-1.030 SOURCE [...] Encounters Encounter Location Date/Time Departed Emergency Room [facility] 07/03/14 10:05pm Departed Emergency Room [facility] 06/07/14 10:34am Departed Emergency Room [facility] 05/15/14 10:44am Registered Clinic [facility] 04/23/14 10:28am Departed Emergency Room Julijuan Koehler [facility] 04/22/14 12:26am Departed Emergency Room Julijuan Koehler [facility] 04/19/14 2:00pm Departed Emergency Room Julijuan Koehler [facility] 04/16/14 8:01pm Departed Emergency Room Julijuan Koehler [facility] 04/13/14 5:01pm Departed Emergency Room Juli BMadhuri Rodo [facility] 04/08/14 2:51pm Departed Emergency Room Julijuan Koehler [facility] 03/02/14 1:55am Departed Emergency Room Julijuan Koehler [facility] 01/29/14 11:26pm Departed Emergency Room Julijuan Koehler [facility] 01/27/14 11:34pm Departed Emergency Room Julijuan Koehler [facility] 01/25/14 6:23pm Registered Clinic Juli BMadhuri Rodo [facility] 01/22/14 10:26am Departed Emergency Room Julijuan Koehler [facility] 01/16/14 9:42am Departed Emergency Room Julijuan Koehler [facility] 01/10/14 5:56pm Departed Emergency Room Julijuan Koehler [facility] 01/09/14 11:54am Office Visit TRACI CROOK 01/09/14 10:30am Departed Emergency Room Julijuan Koehler [facility] 01/08/14 8:00pm Departed Emergency Room Julijuan Koehler [facility] 12/24/13 6:10pm Departed Emergency Room Juli BMadhuri Rodo [facility] 12/22/13 9:50pm Departed Emergency Room Juli BMadhuri Rodo [facility] 12/15/13 11:32am Departed Emergency Room Julijuan Koehler [facility] 12/11/13 10:06pm Registered Clinic Juli BMadhuri [facility] 11/21/13 11:19am Departed Emergency Room Juli BMadhuri Rodo [facility] 11/16/13 8:55pm Departed Emergency Room Juli BMadhuri Rodo [facility] 11/11/13 4:43pm Departed Emergency Room Juli Flako Rod[facility] 11/05/13 4:02pm Office Visit TRACI CROOK 10/10/13 11:30am Departed Emergency Room [facility] 10/09/13 8:57[facility] 10:42am Departed Emergency Room [facility] 08/04/13 9:16am Office Visit TRACI CROOK 07/08/13 2:15pm Recent Diagnosis
--- OUTSIDE RECORDS SUMMARY | 2016-11-21 22:34 | XMS REPORT | Continuity of Care Document ---
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 Vending Route Driver Name Role Phone TRACI CROOK MD Primary Care Physician [phone] Insurance Providers Payer Name Policy Number Subscriber Name Relationship Self Pay Insurance RosettaVel mijaresLisa S 01 Self / Same As Patient Chief Complaint and Reason for Visit Chief Complaint Neck Pain Reason for Visit Malaise Cough [id number] Chronic neck pain Problems Medical Problems Problem [...] No 03/04/2013 12:35pm Smoking Status Never smoker 04/13/2014 5:07pm Query Response Start Date Stop Date Smoking Status Never smoker Hospital Discharge Instructions No hospital discharge instructions. Plan of Care Discharge Date 04/13/14 6:48pm Disposition 01 HOME, SELF-CARE Condition at Discharge Stable Instructions/Education Provided Cough Viral Illness Chronic Pain Management (ED) Forms Provided Work Release Prescriptions See Medications Section Referrals TRACI CROOK MD Functional Status No functional status results. Allergies, Adverse Reactions, Alerts Allergen Type Severity Reaction Status Last Updated No Known Allergies Active 01/16/14 Immunizations No immunization records. Vital Signs Acute Vital Signs Vital Response Date/Time Blood Pressure 142/85 mm Hg 04/13/2014 6:48pm Blood Pressure Mean 104 mm Hg 04/13/2014 6:48pm Pulse 04/13/2014 6:48pm Pulse Rate: ED 60 bpm 04/13/2014 6:48pm Respiratory Rate 16 breaths per minute (10 - 20) 04/13/2014 6:48pm Ambulatory Vital Signs Vital Response Date/Time Height [...] M.D. HYDRATE IV INFUSION ADD-ON completed 12/22/13 NEGOR QUIJANO M.D. THER/PROPH/DIAG INJ IV PUSH completed [...] Encounters Encounter Location Date/Time Departed Emergency Room [facility] 04/13/14 5:01pm Departed Emergency Room [facility] 04/08/14 2:51pm Departed Emergency Room [facility] 03/02/14 1:55am Departed Emergency Room [facility] 01/29/14 11:26pm Departed Emergency Room [facility] 01/27/14 11:34pm Departed Emergency Room [facility] 01/25/14 6:23pm Registered Clinic [facility] 01/22/14 10:26am Departed Emergency Room [facility] 01/16/14 9:42am Departed Emergency Room [facility] 01/10/14 5:56pm Departed Emergency Room [facility] 01/09/14 11:54am Office Visit TRACI CROOK 01/09/14 10:30am Departed Emergency Room [facility] 01/08/14 8:00pm Departed Emergency Room [facility] 12/24/13 6:10pm Departed Emergency Room Juli Flako [facility] 12/22/13 9:50pm Departed Emergency Room Juli Flako [facility] 12/15/13 11:32am Departed Emergency Room Hunter Flako [facility] 12/11/13 10:06pm Registered Clinic [facility] B. [facility] 11/21/13 11:19am [facility] 11/16/13 8:55pm Departed Emergency Room Hunter Flako [facility] 11/11/13 4:43pm [facility] 11/05/13 4:02pm Office Visit TRACI CROOK 10/10/13 11:30am [facility] 10/09/13 8:57am [facility] 10/03/13 2:43am Departed Emergency Room [facility] 09/10/13 7:03pm [facility] 09/03/13 10:42am Departed Emergency Room Hunter Flako [facility] 08/04/13 9:16am Office Visit TRACI CROOK 07/08/13 2:15pm Office Visit TRACI CROOK 06/24/13 3:45pm Office Visit TRACI CROOK 05/13/13 2:00pm Departed Emergency Room Hunter Flako [facility] 05/03/13 5:49pm Recent Diagnosis
--- OUTSIDE RECORDS SUMMARY | 2016-11-21 22:34 | XMS REPORT | Continuity of Care Document ---
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 Resident Physician Name Role Phone TRACI CROOK MD Primary Care Physician [phone] Insurance Providers Payer Name Policy Number Subscriber Name Relationship Self Pay Insurance Vel Waltersigekrissy Fay 01 Self / Same As Patient [...] Vital Signs Vital Response Date/Time Blood Pressure 108/64 mm Hg Blood Pressure Mean 101 mm Hg Temperature (Fahrenheit) 98.0 degrees F (96.0 - 99.9) Temperature (Calculated Celsius) 36.84762 degrees C Temperature Source Oral Pulse Pulse [...] NONE SOURCE: URINE, CLEAN CATCH Urine Specific [place] January 27, 2014 11:59pm 1.025 1.005-1.030 SOURCE [...] DOSS D.O. Encounters Encounter Location Date/Time Registered Clinic Juli Koehler [facility] 04/23/14 10:28am Departed Emergency Room Juli Koehler [facility] 04/22/14 12:26am Departed Emergency Room Julijuan Koehler [facility] 04/19/14 2:00pm Departed Emergency Room Julijuan Koehler [facility] 04/16/14 8:01pm Departed Emergency Room Julijuan Koehler [facility] 04/13/14 5:01pm Departed Emergency Room Julijuan Koehler [facility] 04/08/14 2:51pm Departed Emergency Room Julijuan Koehler [facility] 03/02/14 1:55am Departed Emergency Room Julijuan Koehler [facility] 01/29/14 11:26pm Departed Emergency Room Julijuan Koehler [facility] 01/27/14 11:34pm Departed Emergency Room Julijuan Koehler [facility] 01/25/14 6:23pm Registered Clinic Juli BMadhuri Rodo [facility] 01/22/14 10:26am Departed Emergency Room Julijuan Koehler [facility] 01/16/14 9:42am Departed Emergency Room Julijuan Koehler [facility] 01/10/14 5:56pm Departed Emergency Room Julijuan Koehler [facility] 01/09/14 11:54am Office Visit TRACI CROOK 01/09/14 10:30am Departed Emergency Room Julijuan Koehler [facility] 01/08/14 8:00pm Departed Emergency Room Julijuan Koehler [facility] 12/24/13 6:10pm Departed Emergency Room Julijuan Koehler [facility] 12/22/13 9:50pm Departed Emergency Room Julijuan Koehler [facility] 12/15/13 11:32am Departed Emergency Room Julijuan Koehler [facility] 12/11/13 10:06pm Registered Clinic Juli BMadhuri Rodo [facility] 11/21/13 11:19am Departed Emergency Room Julijuan Koehler [facility] 11/16/13 8:55pm Departed Emergency Room Julijuan Koehler [facility] 11/11/13 4:43pm Departed Emergency Room Julijuan Koehler [facility] 11/05/13 4:02pm Office Visit TRACI CROOK 10/10/13 11:30am Departed Emergency Room Julijuan Koehler [facility] 10/09/13 8:57am Departed Emergency Room Juli Koehler [facility] 10/03/13 2:43am Departed Emergency Room Juli Koehler [facility] 09/10/13 7:03pm Departed Emergency Room Julijuan Koehler [facility] 09/03/13 10:42am Departed Emergency Room Juli Koehler [facility] 08/04/13 9:16am Office Visit TRACI CROOK 07/08/13 2:15pm Office Visit TRACI CROOK 06/24/13 3:45pm Office Visit TRACI CROOK 05/13/13 2:00pm Departed Emergency Room Julijuan Koehler [facility] 05/03/13 5:49pm
--- OUTSIDE RECORDS SUMMARY | 2016-11-21 22:34 | XMS REPORT | Continuity of Care Document ---
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 Old Coin Dealer Name Role Phone TRACI CROOK MD Unavailable [phone] Insurance Providers Payer Name Policy Number Subscriber Name Relationship Self Pay Insurance Chief Complaint and Reason for Visit Chief Complaint Chest Pain Reason for Visit [id number] Chest wall pain Problems Medical Problems Problem [...] Vital Signs Vital Response Date/Time Blood Pressure 112/82 mm Hg 01/22/2014 10:30am Pulse 01/22/2014 10:30am Pulse Rate (adult) 89 bpm (60 - 100) 01/22/2014 10:30am Ambulatory Vital Signs Vital Response Date/Time Height 5 ft 4.500 in 01/09/2014 10:36am Weight 108 lbs 01/09/2014 10:36am Blood Pressure 122/80 mm Hg 01/09/2014 10:36am Body Surface Area 1.48 m2 01/09/2014 10:36am Body Mass Index 18.3 kg/m2 01/09/2014 10:36am Results No known relevant diagnostic tests, laboratory data and/or discharge summary. Procedures No known history of procedures. Encounters Encounter Location Date/Time Registered Clinic Juli Flako [facility]14 [facility]/16/14 9:[facility] 01/10/14 5:56pm [facility] 01/09/14 11:54am Office Visit TRACI CROOK 01/09/14 10:30am [facility] 01/08/14 8:00pm Departed Emergency Room [facility] 12/24/13 6:10pm Departed Emergency Room [facility] 12/22/13 9:50pm Departed Emergency Room [facility] 12/15/13 11:32am Departed Emergency Room [facility] 12/11/13 10:06pm [facility] 11/21/13 11:19am [facility] 11/16/13 8:55pm Departed Emergency Room [facility] 11/11/13 4:43pm Departed Emergency Room [facility] 11/05/13 4:02pm Office Visit TRACI CROOK 10/10/13 11:30am [facility] 10/09/13 8:57am Departed Emergency Room [facility] 10/03/13 2:43am Departed Emergency Room [facility] 09/10/13 7:03pm Departed Emergency Room [facility] 09/03/13 10:42am Departed Emergency Room [facility] 08/04/13 9:16am Office Visit TRACI CROOK 07/08/13 2:15pm Office Visit TRACI CROOK 06/24/13 3:45pm Office Visit TRACI CROOK 05/13/13 2:00pm Departed Emergency Room [facility] 05/03/13 5:49pm Office Visit TRACI CROOK 03/18/13 11:15am Office Visit TRACI CROOK 03/04/13 11:15am
--- NOTE | 2016-11-21 22:35 | NUR ---
PROVIDER DR RUGGIERO IN ROOM TO SEE PT
--- OUTSIDE RECORDS SUMMARY | 2016-11-21 22:43 | XMS REPORT | Continuity of Care Document ---
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 Elementary Tutor Name Role Phone TRACI CROOK MD Primary Care Physician [phone] Insurance Providers Payer Name Policy Number Subscriber Name Relationship Self Pay Insurance RosettaVel mijaresLisa S 01 Self / Same As Patient Chief Complaint and Reason for Visit Chief Complaint Respiratory Problem Reason for Visit Anxiety Atypical chest pain [id number] Chronic anemia Problems Medical Problems Problem Onset [...] F (96.0 - 99.9) Temperature (Calculated Celsius) 36.02293 degrees C Temperature Source Oral Pulse Pulse [...] NONE SOURCE: URINE, CLEAN CATCH Urine Specific [place] December 27, 2014 3:05am 1.025 1.005-1.030 SOURCE [...] Encounters Encounter Location Date/Time Registered Emergency Room [facility] 12/27/14 2:43am Office Visit JIMMY MATHUR 12/01/14 3:15pm Departed Emergency Room [facility] 11/26/14 10:33am Office Visit TRACI CROOK 11/17/14 11:00am Departed Emergency Room [facility] 11/03/14 8:37pm Departed Emergency Room [facility] 09/19/14 9:54am Departed Emergency Room [facility] 09/14/14 8:03am Departed Emergency Room Juli BMadhuri [facility] 09/02/14 2:56pm Departed Emergency Room Juli BMadhuri [facility] 08/02/14 1:09pm Departed Emergency Room Juli BMadhuri Rodo [facility] 07/03/14 10:05pm Departed Emergency Room Juli BMadhuri [facility] 06/07/14 10:34am Departed Emergency Room Juli Flako [facility] 05/15/14 10:44am Registered Clinic Julijuan Koehler [facility] 04/23/14 10:28am Departed Emergency Room Juli BMadhuri [facility] 04/22/14 12:26am Departed Emergency Room Juli BMadhuri [facility] 04/19/14 2:00pm Departed Emergency Room Juli BMadhuri [facility] 04/16/14 8:01pm [facility] 04/13/14 5:01pm Departed Emergency Room [facility]i [facility]RMadhuri [facility] 04/08/14 2:51pm Departed Emergency Room Juli BMadhuri [facility] 03/02/14 1:55am Departed Emergency Room Juli BMadhuri [facility] 01/29/14 11:26pm Departed Emergency Room Juli BMadhuri [facility] 01/27/14 11:34pm Departed Emergency Room Juli BMadhuri [facility] 01/25/14 6:23pm Registered Clinic [facility] 01/22/14 10:26am Departed Emergency Room [facility] 01/16/14 9:42am Departed Emergency Room Juli Flako [facility] 01/10/14 5:56pm [facility] 01/09/14 11:54am Office Visit TRACI CROOK 01/09/14 10:30am Departed Emergency Room [facility] 01/08/14 8:00pm Recent Diagnosis
--- OUTSIDE RECORDS SUMMARY | 2016-11-21 22:43 | XMS REPORT | Continuity of Care Document ---
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 Inspector Quality Assurance Name Role Phone TRACI CROOK MD Unavailable [phone] Insurance Providers Payer Name Policy Number Subscriber [...] Discharge Stable Prescriptions See Medications Section Referrals RTACI CROOK MD Functional Status No functional status [...] Encounters En[facility] 6:23pm Registered Clinic Julijuan Koehler [facility] 01/22/14 10:26am Departed Emergency Room Julijuan Koehler [facility] 01/16/14 9:42am Departed Emergency Room Julijuan Koehler [facility] 01/10/14 5:56pm Departed Emergency Room Julijuan Koehler [facility] 01/09/14 11:54am Office Visit TRACI CROOK 01/09/14 10:30am Departed Emergency Room Julijuan Koehler [facility] 01/08/14 8:00pm Departed Emergency Room [facility] 12/24/13 6:10pm Departed Emergency Room [facility] 12/22/13 9:50pm Departed Emergency Room [facility] 12/15/13 11:32am Departed Emergency Room [facility] 12/11/13 10:06pm Registered Clinic Juli BMadhuri Rodo [facility] 11/21/13 11:19am Departed Emergency Room [facility] 11/16/13 8:55pm Departed Emergency Room [facility] 11/11/13 4:43pm Departed Emergency Room [facility] 11/05/13 4:02pm Office Visit TRACI CROOK 10/10/13 11:30am Departed Emergency Room Julijuan Koehler [facility] 10/09/13 8:57am Departed Emergency Room [facility] 10/03/13 2:43am Departed Emergency Room Juli Flako [facility] 09/10/13 7:03pm Departed Emergency Room [facility] 09/03/13 10:42am Departed Emergency Room Juli Flako [facility] 08/04/13 9:16am Office Visit TRACI CROOK 07/08/13 2:15pm Office Visit TRACI CROOK 06/24/13 3:45pm Office Visit TRACI CROOK 05/13/13 2:00pm Departed Emergency Room [facility] Fl[facility] 05/03/13 5:49pm Office Visit TRACI CROOK 03/18/13 11:15am Office Visit TRACI CROOK 03/04/13 11:15am Recent Diagnosis Hematuria Urinary tract infection
--- OUTSIDE RECORDS SUMMARY | 2016-11-21 22:43 | XMS REPORT | Continuity of Care Document ---
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 Manager Communication Name Role Phone TRACI CROOK MD Primary Care Physician [phone] Insurance Providers Payer Name Policy Number Subscriber Name Relationship Self Pay Insurance Chief Complaint and Reason for Visit Chief Complaint Respiratory Problem Reason for Visit [id number] Otitis externa Pleurisy Problems Medical Problems Problem [...] F (96.0 - 99.9) Temperature (Calculated Celsius) 36.11979 degrees C Temperature Source Oral Pulse Pulse [...] NONE SOURCE: URINE, CLEAN CATCH Urine Specific [place] January 27, 2014 11:59pm 1.025 1.005-1.030 SOURCE [...] Encounters En[facility]ed Emergency Room [facility] 07/03/14 10:05pm Departed Emergency Room [facility] 06/07/14 10:34am Departed Emergency Room Juli Flako [facility] 05/15/14 10:44am Registered Clinic Jul[facility]uan Koehler [facility] 04/23/14 10:28am Departed Emergency Room [facility] 04/22/14 12:26am Departed Emergency Room [facility]ijuan Koehler [facility] 04/19/14 2:00pm Departed Emergency Room [facility]ij[facility] Koe[facility] 04/16/14 8:01pm Departed Emergency Room Julijuan Koehler [facility] 04/13/14 5:01pm Departed Emergency Room [facility] 04/08/14 2:51pm Departed Emergency Room Julijuan Koehler [facility] 03/02/14 1:55am Departed Emergency Room Julijuan Koehler [facility] 01/29/14 11:26pm Departed Emergency Room [facility] 01/27/14 11:34pm Departed Emergency Room [facility] 01/25/14 6:23pm Registered Clinic [facility]oe[facility] 01/22/14 10:26am Departed Emergency Room Juli Flako [facility] 01/16/14 9:42am Departed Emergency Room [facility] 01/10/14 5:56pm Departed Emergency Room Juli Flako [facility] 01/09/14 11:54am Office Visit TRACI CROOK 01/09/14 10:30am Departed Emergency Room Julijuan Koehler [facility] 01/08/14 8:00pm Departed Emergency Room Julijuan Koehler [facility] 12/24/13 6:10pm Departed Emergency Room Julijuan Koehler [facility] 12/22/13 9:50pm Departed Emergency Room [facility] 12/15/13 11:32am Departed Emergency Room [facility] 12/11/13 10:06pm Registered Clinic Julijuan Koehler [facility] 11/21/13 11:19am Departed Emergency Room [facility] 11/16/13 8:55pm Departed Emergency Room Julijuan Koehler [facility] 04/22/14 4:43pm Departed Emergency Room [facility] 11/05/13 4:02pm Office Visit TRCAI CHILDSS 10/10/13 11:30am Departed Emergency Room [facility] 10/09/13 8:57am Departed Emergency Room [facility] 10/03/13 2:43am Departed Emergency Room [facility] 09/10/13 7:03pm Departed Emergency Room [facility] 09/03/13 10:42am Departed Emergency Room [facility] 08/04/13 9:16am Recent Diagnosis
--- OUTSIDE RECORDS SUMMARY | 2016-11-21 22:43 | XMS REPORT | Continuity of Care Document ---
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 Lime Kiln And Recausticizing Operator Name Role Phone TRACI CROOK MD Unavailable [phone] Insurance Providers Payer Name Policy Number Subscriber [...] 60 Qty 01/16/14 Active Fluticasone Propionate 1 [place] NA TWICE A DAY 1 Qty 01/25/14 [...] Encounters Encounter Location Date/Time Departed Emergency Room [facility] 01/25/14 6:23pm [facility]istered [facility] 01/22/14 10:26am Departed Emergency Room [facility] 01/16/14 9:42am [facility] 01/10/14 5:56pm [facility] 01/09/14 11:54am Office Visit TRACI CROOK 01/09/14 10:30am Departed Emergency Room [facility] 01/08/14 8:00pm Departed Emergency Room [facility] 12/24/13 6:10pm Departed Emergency Room [facility] 12/22/13 9:50pm [facility] 12/15/13 11:32am Departed Emergency Room [facility] 12/11/13 10:06pm [facility] 11/21/13 11:19am Departed Emergency Room [facility] 11/16/13 8:55pm Departed Emergency Room [facility] 11/11/13 4:43pm [facility] 11/05/13 4:02pm Office Visit TRACI CROOK 10/10/13 11:30am Departed Emergency Room [facility] 10/09/13 8:57am Departed Emergency Room [facility] 10/03/13 2:43am Departed Emergency Room [facility] 09/10/13 7:03pm Departed Emergency Room [facility] 09/03/13 10:42am Departed Emergency Room [facility] 08/04/13 9:16am Office Visit TRACI CROOK 07/08/13 2:15pm Office Visit TRACI CROOK 06/24/13 3:45pm Office Visit TRACI CROOK 05/13/13 2:00pm Departed Emergency Room Juli Koehler [facility] 05/03/13 5:49pm Office Visit TRACI CROOK 03/18/13 11:15am Office Visit TRACI CROOK 03/04/13 11:15am Recent Diagnosis Cough Sinusitis
[2016-11-21] MEDS ORDERED: HYDR-4246 PO (22:44)
[2016-11-21] MEDS ORDERED: PENI500T2 PO (22:44)
--- NOTE | 2016-11-21 22:44 | ERPDOC ---
Departure Disposition Decision Date: November 21, 2016 Disposition Decision Time: 22:42 Disposition: 01 DISCHARGED HOME, SELF-CARE Impression Impression Impression: Primary Impression: Pain, dental Severity: Moderate Condition: Improved Seen By: Physician only Referrals: [facility] Day Patient Instructions: Dental Caries (ED), Toothache (ED), ED Dental Follow-up Problems/Meds/Labs Reviewed?: Yes Medications reviewed and manag: Yes Follow up care ordered?: Yes Mental Status: Alert, Oriented Scripts Penicillin V Potassium (Penicillin V Potassium) 500 Mg Tablet 1 TAB PO QID for 10 Days, #40 TAB 0 Refills Prov: ZACH RUGGIERO DO 11/21/16 Hydrocodone/Acetaminophen (Avenal 5-325 Tablet) 5-325 Tablet 1 TAB PO Q4HR Y for PAIN for 2 Days, #12 TAB 0 Refills Prov: AZCH RUGGIERO DO 11/21/16 HPI - General Medical General Chief Complaint: Toothache Stated Complaint: TOOTH PAIN Time Seen by Provider: 22:27 Source: patient Exam Limitations: no limitations HPI - General Medical Initial Comments 36-year-old female presents to the emergency department with a chief complaint of dental pain. Patient noted onset of symptoms earlier today. Patient was at home when her symptoms began. Symptoms have been persistent in nature since onset. Patient notes the pain in the left side of her mouth. She denies any exacerbating or remitting factors. Patient has a history of similar symptoms in the past. No other complaints or associated symptoms. Pain is sharp. Pain is moderate to severe. No radiation of pain. Occurred At: home Onset: Gradual Allergies: Coded Allergies: vancomycin (Verified Allergy, Unknown, 07/10/16) Past History Past Medical History Cardiac: other GI: GERD Neurological: seizures Psychological: anxiety, depression Surgical History Cardiac: other, pacemaker Family History Family PMH: FOUND: hypertension Social History Smoking Status: Never smoker Substance Use Type: does not use Alcohol Intake: none Sexuality: male partner Review of Systems Constitutional Constitutional: DENIES: chills, fever Eyes General: DENIES: erythema, exudate Lids/Accessories: DENIES: erythema, swelling Vision: DENIES: acuity, blurring ENMT Ears: DENIES: drainage, erythema Hearing: DENIES: hearing loss Balance: DENIES: ataxia, falling to one side Sinuses: DENIES: congestion, pain Nose: DENIES: nosebleeds, pain Mouth/Throat: DENIES: drooling, painful swallowing, sore throat Teeth: pain Jaw: DENIES: pain Cardiovascular Cardiac: DENIES: chest pain, dyspnea on exertion Rhythm/Rate: DENIES: irregular beat, palpitations Vascular: DENIES: pedal edema, unilateral swelling Pulmonary Respiratory: DENIES: cough, dyspnea, pleuritic chest pain, sputum GI Upper Abdomen: DENIES: nausea, pain, vomiting Lower Abdomen: DENIES: diarrhea, pain General: DENIES: dysuria, frequency Musculoskeletal General: DENIES: joint pain, tenderness Integumentary Skin: DENIES: itching, rash Neurological General: DENIES: headache, numbness, weakness Psychiatric Psychiatric: DENIES: emotional instability, suicidal ideation/attempt Endocrine Endocrine: DENIES: polydipsia, polyphagia Hematologic/Lymphatic Hematologic/Lymphatic: DENIES: frequent nosebleeds, lymphadenopathy Allergic/Immunological Allergic/Immunoligical: DENIES: allergic reactions, hives Physical Exam General General Nourishment: well nourished, well developed, appears stated age, no acute distress, adult General Body Habitus: well groomed Vitals and Pain First Documented Vital Signs Date Time Temp Pulse Resp B/P Pulse Ox O2 Delivery O2 Flow Rate FiO2 11/21/16 22:24 97.6 84 20 148/67 99 Room Air Weight: Kilograms: 61.600 Height (feet): 5 Height (inches): 4.00 Triage Pain Scale: RN VS reviewed by Provider: Yes Normal Exams: Head: Normocephalic w/o trauma Eyes: Pupils are PERRLA w/ EOMI, No scleral icterus, irritation, or foreign bodies noted ENMT: No facial trauma, nasal exudates, pharyngeal erythema, or exudates are noted Neck: Full range of motion, without adenopathy, JVD, bruits or thyromegaly Chest/Resp: Clear all brunner, with good airflow, and symmetry bilaterally CV: Regular rate and rhythm, without murmur or gallop, Pulses 2+ all extremities, capillary refill, <2 seconds all ext., no pedal edema noted Abdomen: Bowel sounds positive, soft, non-tender, non-distended, no hepatosplenomegaly, masses or bruits noted Lymphatic: No lymphadenopathy, or lymphedema noted Musculoskeletal: No tenderness, or deformity noted, good range of motion, all extremities Integumentary: No rashes, hives, or bruising noted, hair and nails, without abnormality Neurologic: Patient is alert, and oriented, cranial nerves, motor/sensory/ cerebellar, exams w/o gross deficits, to observation Psychiatric: Patient exhibits, appropriate attention, emotion and affect ENMT (brief) Comments Oral - teeth #19 and 14 are tender to percussion. No sign of abscess. Uvula midline. Voice is normal. Handling secretions without difficulty. No facial swelling or cellulitis. No elevation of tongue. No pharyngeal erythema. No tonsillar exudate. Differential Diagnoses Considering: Other (dental pain/dental abscess/dental trauma/dental caries) Progress Results/Orders Orders Procedure Category Date Status Time Penicillin V PHA 11/21/16 Complete Potassium (Pen Vk) 22:45 Medications Current ED Medications Penicillin V Potassium (Pen Vk) 500 mg O ONCE PO Last administered on t 23:16; Start 11/21/16 at 22:45; Stop 11/21/16 at 22:46; Status DC Progress Progress Patient is given penicillin VK 500 mg by mouth times one and Avenal 7.5 mg by mouth 1 in the emergency department with improvement of symptoms. Patient is discharged home in improved condition. she is to follow up as instructed. Patient is to return to the emergency Department if her condition worsens or changes in any manner. Patient is in agreement with the current plan of management. She is to follow up as instructed. Patient has a safe ride home. Prescription for Avenal and penicillin VK is provided. ZACH RUGGIERO DO November 21, 2016 22:44
--- OUTSIDE RECORDS SUMMARY | 2016-11-21 22:44 | XMS REPORT | Continuity of Care Document ---
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 Mobile Paint Specialist Name Role Phone TRACI CROOK MD Primary Care Physician [phone] Insurance Providers Payer Name Policy Number Subscriber [...] F (96.0 - 99.9) Temperature (Calculated Celsius) 36.46071 degrees C Temperature Source Oral Pulse Pulse [...] NONE SOURCE: URINE, CLEAN CATCH Urine Specific [place] December 27, 2014 3:05am 1.025 1.005-1.030 SOURCE [...] Encounters Encounter Location Date/Time Departed Emergency Room [facility] 12/31/14 10:26am Departed Emergency Room [facility] 12/27/14 2:43am Office Visit JIMMY GREGORIO 12/01/14 3:15pm Departed Emergency Room [facility] 11/26/14 10:33am Office Visit TRACI CROOK 11/17/14 11:00am Departed Emergency Room [facility] 11/03/14 8:37pm Departed Emergency Room [facility] 09/19/14 9:54am Departed Emergency Room [facility] 09/14/14 8:03am Departed Emergency Room Juli BMadhuri [facility] 09/02/14 2:56pm Departed Emergency Room Juli Flako [facility] 08/02/14 1:09pm Departed Emergency Room Juli Flako [facility] 07/03/14 10:05pm Departed Emergency Room Juli Flako [facility] 06/07/14 10:34am Departed Emergency Room [facility] 05/15/14 10:44am Registered Clinic Julijuan Koehler [facility] 04/23/14 10:28am Departed Emergency Room Juli Flako [facility] 04/22/14 12:26am Departed Emergency Room [facility] 04/19/14 2:00pm Departed Emergency Room Juli BMadhuri [facility] 04/16/14 8:01pm Departed Emergency Room Juli Flako [facility] 04/13/14 5:01pm Departed Emergency Room Juli Flako [facility] 04/08/14 2:51pm Departed Emergency Room Juli BMadhuri [facility] 03/02/14 1:55am Departed Emergency Room Juli Madhuri [facility] 01/29/14 11:26pm Departed Emergency Room Juli BMadhuri [facility] 01/27/14 11:34pm Departed Emergency Room Juli BMadhuri [facility] 01/25/14 6:23pm Registered Clinic [facility] 01/22/14 10:26am Departed Emergency Room [facility] 01/16/14 9:42am Departed Emergency Room [facility] 01/10/14 5:56pm Departed Emergency Room Juli Flako [facility] 01/09/14 11:54am Office Visit TRACI CROOK 01/09/14 10:30am [facility] 01/08/14 8:00pm Recent Diagnosis
--- OUTSIDE RECORDS SUMMARY | 2016-11-21 22:44 | XMS REPORT | Continuity of Care Document ---
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 Manager Car Name Role Phone TRACI CROOK MD Unavailable [phone] Insurance Providers Payer Name Policy Number Subscriber [...] Encounters Encounter Location Date/Time Departed Emergency Room [facility] 01/29/14 11:26pm Departed Emergency Room [facility] 01/27/14 11:34pm Departed Emergency Room [facility] 01/25/14 6:23pm Registered Clinic [facility] 01/22/14 10:26am Departed Emergency Room [facility] 01/16/14 9:42am Departed Emergency Room [facility] 01/10/14 5:56pm Departed Emergency Room [facility] 01/09/14 11:54am Office Visit TRACI CROOK 01/09/14 10:30am Departed Emergency Room [facility] 01/08/14 8:00pm Departed Emergency Room [facility] 12/24/13 6:10pm Departed Emergency Room [facility] 12/22/13 9:50pm Departed Emergency Room [facility] 12/15/13 11:32am Departed Emergency Room [facility] 12/11/13 10:06pm Registered Clinic [facility] 11/21/13 11:19am Departed Emergency Room [facility] 11/16/13 8:55pm Departed Emergency Room [facility] 11/11/13 4:43pm Departed Emergency Room [facility] 11/05/13 4:02pm Office Visit TRACI CROOK 10/10/13 11:30am Departed Emergency Room [facility] 10/09/13 8:57am Departed Emergency Room [facility] 10/03/13 2:43am Departed Emergency Room [facility] 09/10/13 7:03pm Departed Emergency Room [facility] 09/03/13 10:42am Departed Emergency Room [facility] 08/04/13 9:16am Office Visit TRACI CROOK 07/08/13 2:15pm Office Visit TRACI CROOK 06/24/13 3:45pm Office Visit TRACI CROOK 05/13/13 2:00pm Departed Emergency Room Juli Koehler [facility] 05/03/13 5:49pm Office Visit TRACI CROOK 03/18/13 11:15am Office Visit TRACI CROOK 03/04/13 11:15am Recent Diagnosis Urinary tract infection
--- OUTSIDE RECORDS SUMMARY | 2016-11-21 22:44 | XMS REPORT | Continuity of Care Document ---
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 Hat Maker Name Role Phone TRACI CROOK MD Primary Care Physician [phone] Insurance Providers Payer Name Policy Number Subscriber [...] Mild RASH, REDNESS Active 09/02/14 Poison Adina/Poison [place] Extract Allergy Unknown Active 09/02/14 Immunizations No immunization records. Vital Signs Acute Vital Signs Vital Response Date/Time Blood Pressure 128/71 mm Hg Blood Pressure Mean 90 mm Hg Temperature (Fahrenheit) 97.8 degrees F (96.0 - 99.9) Temperature (Calculated Celsius) 36.36536 degrees C Temperature Source Oral Pulse Pulse [...] NONE SOURCE: URINE, CLEAN CATCH Urine Specific [place] September 14, 2014 8:20am >=1.030 1.005-1.030 SOURCE: [...] Encounters Encounter Location Date/Time Departed Emergency Room [facility] 09/14/14 8:03am Departed Emergency Room [facility] 09/02/14 2:56pm Departed Emergency Room [facility] 08/02/14 1:09pm Departed Emergency Room [facility] 07/03/14 10:05pm Departed Emergency Room [facility] 06/07/14 10:34am Departed Emergency Room [facility] 05/15/14 10:44am Registered Clinic [facility] 04/23/14 10:28am Departed Emergency Room Julijuan Koehler [facility] 04/22/14 12:26am Departed Emergency Room Julijuan Koe[facility] 04/19/14 2:00pm Departed Emergency Room Julijuan Koehler [facility] 04/16/14 8:01pm Departed Emergency Room Julijuan Koehler [facility] 04/13/14 5:01pm Departed Emergency Room Julijuan Koehler [facility] 04/08/14 2:51pm Departed Emergency Room Julijuan Koehler [facility] 03/02/14 1:55am Departed Emergency Room Julijuan Koehler [facility] 01/29/14 11:26pm Departed Emergency Room Julijuan Koehler [facility] 01/27/14 11:34pm Departed Emergency Room Julijuan Koehler [facility] 01/25/14 6:23pm Registered Clinic Juli B. Rodo [facility] 01/22/14 10:26am Departed Emergency Room Juli BMadhuri Rodo [facility] 01/16/14 9:42am Departed Emergency Room Juli BMadhuri Rod[facility] 01/10/14 5:56pm Departed Emergency Room Juli BMadhuri Rod[facility] 01/09/14 11:54am Office Visit TRACI CROOK 01/09/14 10:30am Departed Emergency Room Julijuan Koehler [facility] 01/08/14 8:00pm Departed Emergency Room Juli BMadhuri Rod[facility] 12/24/13 6:10pm Departed Emergency Room Juli BMadhuri Rod[facility] 12/22/13 9:50pm Departed Emergency Room Juli BMadhuri [facility] 12/15/13 11:32am Departed Emergency Room Julijuan Koehler [facility] 12/11/13 10:06pm Registered Clinic [facility] B. Rodo [facility] 11/21/13 11:19am Departed Emergency Room Juli BMadhuri Rodo [facility] 11/16/13 8:55pm Departed Emergency Room Juli BMadhuri Rod[facility] 11/11/13 4:43pm Departed Emergency Room Juli Flako Rod[facility] 11/05/13 4:02pm Office Visit TRACI CROOK 10/10/13 11:30am Departed Emergency Room [facility] B. Rod[facility] 10/09/13 8:57am Departed Emergency Room Juli Koehler [facility] 10/03/13 2:43am Recent Diagnosis Dizziness
--- OUTSIDE RECORDS SUMMARY | 2016-11-21 22:44 | XMS REPORT | Continuity of Care Document ---
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 Reinstatement Clerk Name Role Phone TRACI CROOK MD Primary Care Physician [phone] Insurance Providers Payer Name Policy Number Subscriber Name Relationship Workers Compensation [id number] CarlineLisa Sumeet 08 Employee Chief Complaint and [...] F (96.0 - 99.9) Temperature (Calculated Celsius) 36.44112 degrees C Temperature Source Oral Pulse Pulse [...] SOURCE: URINE, CLEAN CATCH Urine Specific [place] November 26, 2014 10:53am 1.025 1.005-1.030 SOURCE [...] Location Date/Time Registered Emergency Room [facility] 11/26/14 10:33am Office Visit TRACI CROOK 11/17/14 11:00am [facility] 8:[facility] Departed Emergency Room Julijuan Koehler [facility] 09/19/14 9:54am Departed Emergency Room Juli BMadhuri Rodo [facility] 09/14/14 8:03am Departed Emergency Room Julijuan Koehler [facility] 09/02/14 2:56pm Departed Emergency Room Julijuan Koehler [facility] 08/02/14 1:09pm Departed Emergency Room Juli BMadhuri Rodo [facility] 07/03/14 10:05pm Departed Emergency Room Juli BMadhuri Rodo [facility] 06/07/14 10:34am Departed Emergency Room Julijuan Koehler [facility] 05/15/14 10:44am Registered Clinic Jul[facility] Koehler [facility] 04/23/14 10:28am Departed Emergency Room Julijuan Koehler [facility] 04/22/14 12:26am Departed Emergency Room [facility] 04/19/14 2:00pm Departed Emergency Room Juli BMadhuri Rodo [facility] 04/16/14 8:01pm Departed Emergency Room Juli BMadhuri Rodo [facility] 04/13/14 5:01pm Departed Emergency Room Julijuan Koehler [facility] 04/08/14 2:51pm Departed Emergency Room Juli BMadhuri Rodo [facility] 03/02/14 1:55am Departed Emergency Room Juli BMadhuri Rodo [facility] 01/29/14 11:26pm Departed Emergency Room Juli BMadhuri [facility] 01/27/14 11:34pm Departed Emergency Room Ujli BMadhuri Rodo [facility] 01/25/14 6:23pm Registered Clinic Julijuan Koehler [facility] 01/22/14 10:26am Departed Emergency Room Juli BMadhuri [facility] 01/16/14 9:42am Departed Emergency Room Juli BMadhuri [facility] 01/10/14 5:56pm Departed Emergency Room Juli BMadhuri Rodo [facility] 01/09/14 11:54am Office Visit TRACI CROOK 01/09/14 10:[facility] 01/08/14 8:00pm Departed Emergency Room Juli Madhuri [facility] 12/24/13 6:10pm Departed Emergency Room Juli Koehler [facility] 12/22/13 9:50pm Departed Emergency Room Juli Koehler [facility] 12/15/13 11:32am Departed Emergency Room [facility] 12/11/13 10:06pm Recent Diagnosis
--- OUTSIDE RECORDS SUMMARY | 2016-11-21 22:44 | XMS REPORT | Continuity of Care Document ---
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 Continuous Mining Operator Name Role Phone TRACI CROOK MD Primary Care Physician [phone] Insurance Providers Payer Name Policy Number Subscriber Name Relationship Self Pay Insurance Lisa Walters 01 Self / Same As Patient Chief Complaint and Reason for Visit Chief Complaint Arm Pain Reason for Visit [id number] Problems Medical Problems Problem Onset Date Status [...] Encounters Encounter Location Date/Time Departed Emergency Room [facility] 04/08/14 2:51pm Departed Emergency Room [facility] 03/02/14 1:55am Departed Emergency Room [facility] 01/29/14 11:26pm Departed Emergency Room [facility] 01/27/14 11:34pm Departed Emergency Room [facility] 01/25/14 6:23pm Registered Clinic [facility] 01/22/14 10:26am Departed Emergency Room [facility] 01/16/14 9:42am Departed Emergency Room [facility] 01/10/14 5:56pm Departed Emergency Room [facility] 01/09/14 11:54am Office Visit TRACI CROOK 01/09/14 10:30am Departed Emergency Room [facility] 01/08/14 8:00pm Departed Emergency Room [facility] 12/24/13 6:10pm Departed Emergency Room [facility] 12/22/13 9:50pm Departed Emergency Room [facility] 12/15/13 11:32am Departed Emergency Room [facility] 12/11/13 10:06pm Registered Clinic [facility] 11/21/13 11:19am Departed Emergency Room [facility] 11/16/13 8:55pm Departed Emergency Room [facility] 11/11/13 4:43pm Departed Emergency Room [facility] 11/05/13 4:02pm Office Visit TRACI CROOK 10/10/13 11:30am Departed Emergency Room [facility] 10/09/13 8:57am Departed Emergency Room Julijuan Koehler [facility] 10/03/13 2:43am Departed Emergency Room [facility] 09/10/13 7:03pm Departed Emergency Room [facility] 09/03/13 10:42am Departed Emergency Room [facility] 08/04/13 9:16am Office Visit TRACI CROOK 07/08/13 2:15pm Office Visit TRACI CROOK 06/24/13 3:45pm Office Visit TRACI CROOK 05/13/13 2:00pm Departed Emergency Room Julijuan Koehler [facility] 05/03/13 5:49pm Recent Diagnosis
--- OUTSIDE RECORDS SUMMARY | 2016-11-21 22:44 | XMS REPORT | Continuity of Care Document ---
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 Assembler Faucets Name Role Phone TRACI CROOK MD Unavailable [phone] Insurance Providers Payer Name Policy Number Subscriber [...] Location Date/Time Registered Emergency Room [facility]i Koe[facility] 03/02/14 1:55am Departed Emergency Room Julijuan Koehler [facility] 01/29/14 11:26pm Departed Emergency Room Julijuan Koe[facility] 01/27/14 11:34pm Departed Emergency Room Julijuan Koehler [facility] 01/25/14 6:23pm Registered Clinic [facility] Koe[facility] 01/22/14 10:26am Departed Emergency Room Julijuan Koehler [facility] 01/16/14 9:42am Departed Emergency Room Juiljuan Koehler [facility] 01/10/14 5:56pm Departed Emergency Room Julijuan Koehler [facility] 01/09/14 11:54am Office Visit TRACI CROOK 01/09/14 10:30am Departed Emergency Room Julijuan Koe[facility] 01/08/14 8:00pm Departed Emergency Room Julijuan Koe[facility] 12/24/13 6:10pm Departed Emergency Room Julijuan Koe[facility] 12/22/13 9:50pm Departed Emergency Room Julijuan Koe[facility] 12/15/13 11:32am Departed Emergency Room Julijuan Koe[facility] 12/11/13 10:06pm Registered Clinic Jul[facility] Koe[facility] 11/21/13 11:19am Departed Emergency Room Julijuan Koe[facility] 11/16/13 8:55pm Departed Emergency Room Julijuan Koe[facility] 11/11/13 4:43pm Departed Emergency Room Julijuan Koe[facility] 11/05/13 4:02pm Office Visit TRACI CROOK 10/10/13 11:30am Departed Emergency Room Julijuan Koe[facility] 10/09/13 8:57am Departed Emergency Room Julijuan Koe[facility] 10/03/13 2:43am Departed Emergency Room Juli Flako [facility] 09/10/13 7:03pm Departed Emergency Room Julijuan Koehler [facility] 09/03/13 10:42am Departed Emergency Room Juli Flako Koehler [facility] 08/04/13 9:16am Office Visit TRACI CROOK 07/08/13 2:15pm Office Visit TRACI CROOK 06/24/13 3:45pm Office Visit TRACI CROOK 05/13/13 2:00pm Departed Emergency Room Juli Koe[facility] 05/03/13 5:49pm Office Visit TRACI CROOK 03/18/13 11:15am Office Visit TRACI CROOK 03/04/13 11:15am Recent Diagnosis Bronchitis
[2016-11-21] MEDS ORDERED: PENICILLIN V POTASSIUM 250 MG TABLET PO ONE (22:45)
--- OUTSIDE RECORDS SUMMARY | 2016-11-21 22:45 | XMS REPORT | Continuity of Care Document ---
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 Salesperson Automobiles Name Role Phone TRACI CROOK MD Primary Care Physician [phone] Insurance Providers Payer Name Policy Number Subscriber Name Relationship Self Pay Insurance Chief Complaint and Reason for Visit Chief Complaint Medical Problem Minor Reason for Visit Electrical shock sensation Weakness [id number] Problems Medical Problems Problem Onset Date Status [...] Mild RASH, REDNESS Active 09/02/14 Poison Adina/Poison [place] Extract Allergy Unknown Active 09/02/14 Immunizations No immunization records. Vital Signs Acute Vital Signs Vital Response Date/Time Blood Pressure 118/83 mm Hg Blood Pressure Mean 95 mm Hg Temperature (Fahrenheit) 98.2 degrees F (96.0 - 99.9) Temperature (Calculated Celsius) 36.26895 degrees C Temperature Source Oral Pulse Pulse [...] NONE SOURCE: URINE, CLEAN CATCH Urine Specific [place] January 27, 2014 11:59pm 1.025 1.005-1.030 SOURCE [...] Location Date/Time Departed Emergency Room Juli BMadhuri [facility] 09/02/14 2:56pm Departed Emergency Room Juli BMadhuri [facility] 08/02/14 1:09pm Departed Emergency Room Juli Flako Koehler [facility] 07/03/14 10:05pm Departed Emergency Room Juli Flako Koehler [facility] 06/07/14 10:34am Departed Emergency Room Juli Flako Koehler [facility] 05/15/14 10:44am Registered Clinic Julijuan Koehler [facility] 04/23/14 10:28am Departed Emergency Room Juli BMadhuri [facility] 04/22/14 12:26am Departed Emergency Room Juli Flako [facility] 04/19/14 2:00pm Departed Emergency Room Juli Flako Koehler [facility] 04/16/14 8:01pm Departed Emergency Room [facility] B[facility] 04/13/14 5:01pm Departed Emergency Room Juli Flako [facility] 04/08/14 2:51pm Departed Emergency Room Juli Flako Koehler [facility] 03/02/14 1:55am Departed Emergency Room Juli BMadhuri [facility] 01/29/14 11:26pm Departed Emergency Room Juli Flako [facility] 01/27/14 11:34pm Departed Emergency Room Juli Flako Rodo [facility] 01/25/14 6:23pm Registered Clinic Julijuan Koehler [facility] 01/22/14 10:26am Departed Emergency Room [facility] B[facility] 01/16/14 9:42am Departed Emergency Room [facility] B[facility] 01/10/14 5:56pm Departed Emergency Room [facility] 01/09/14 11:54am Office Visit TRACI CROOK 01/09/14 10:30am Departed Emergency Room Juli Flako Koehler [facility] 01/08/14 8:00pm Departed Emergency Room Julijuan Koehler [facility] 12/24/13 6:10pm Departed Emergency Room Julijuan Koe[facility] 12/22/13 9:50pm Departed Emergency Room [facility] B[facility] 12/15/13 11:32am Departed Emergency Room [facility] 12/11/13 10:06pm Registered Clinic [facility] 11/21/13 11:19am Departed Emergency Room [place] 11/16/13 8:55pm Departed Emergency Room [place] 11/11/13 4:43pm Departed Emergency Room [place] [facility] 11/05/13 4:02pm Office Visit TRACI CROOK 10/10/13 11:30am Departed Emergency Room [facility] 10/09/13 8:57am Departed Emergency Room [facility] 10/03/13 2:43am [facility] 7:[facility] Departed Emergency Room [place] [facility] 09/03/13 10:42am Recent Diagnosis
--- OUTSIDE RECORDS SUMMARY | 2016-11-21 22:45 | XMS REPORT | Continuity of Care Document ---
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 Shot Coat Tender Name Role Phone TRACI CROOK MD Unavailable [phone] Insurance Providers Payer Name Policy Number Subscriber [...] NONE SOURCE: URINE, CLEAN CATCH Urine Specific [place] January 27, 2014 11:59pm 1.025 1.005-1.030 SOURCE [...] Encounters Encounter Location Date/Time Departed Emergency Room [facility] 05/15/14 10:44am Registered Clinic [facility] 04/23/14 10:28am Departed Emergency Room [facility] 04/22/14 12:26am Departed Emergency Room [facility] 04/19/14 2:00pm Departed Emergency Room [facility] 04/16/14 8:01pm Departed Emergency Room [facility] 04/13/14 5:01pm Departed Emergency Room [facility] 04/08/14 2:51pm Departed Emergency Room [facility] 03/02/14 1:55am Departed Emergency Room Julijuan Koe[facility] 01/29/14 11:26pm Departed Emergency Room [facility]ij[facility] Koe[facility] 01/27/14 11:34pm Departed Emergency Room [facility]ij[facility] Koe[facility] 01/25/14 6:23pm Registered Clinic [facility]ij[facility]oe[facility] 01/22/14 10:26am Departed Emergency Room Julij[facility] Koe[facility] 01/16/14 9:42am Departed Emergency Room Julijuan Koe[facility] 01/10/14 5:56pm Departed Emergency Room [facility] 01/09/14 11:54am Office Visit TRACI CROOK 01/09/14 10:30am Departed Emergency Room [facility]ij[facility] Koe[facility] 01/08/14 8:00pm Departed Emergency Room [facility] 12/24/13 6:10pm Departed Emergency Room Julij[facility] Koe[facility] 12/22/13 9:50pm Departed Emergency Room [facility]ij[facility]oe[facility] 12/15/13 11:32am Departed Emergency Room [facility] 12/11/13 10:06pm Registered Clinic [facility]ij[facility]oe[facility] 11/21/13 11:19am Departed Emergency Room [facility]ij[facility] Koe[facility] 11/16/13 8:55pm Departed Emergency Room [facility] 11/11/13 4:43pm Departed Emergency Room [facility]ij[facility] Koe[facility] 11/05/13 4:02pm Office Visit TRACI CROOK 10/10/13 11:30am Departed Emergency Room [facility]ijuan Koe[facility] 10/09/13 8:57am Departed Emergency Room Juli Flako Koehler [facility] 10/03/13 2:43am [facility] 09/10/13 7:03pm Departed Emergency Room Julijuan Koe[facility] 09/03/13 10:42am Departed Emergency Room [place] [facility] 08/04/13 9:16am Office Visit TRACI CROOK 07/08/13 2:15pm Office Visit TRACI CROOK 06/24/13 3:45pm Recent Diagnosis Torticollis (intermittent, spastic) traumatic, cur
--- OUTSIDE RECORDS SUMMARY | 2016-11-21 22:45 | XMS REPORT | Continuity of Care Document ---
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 Creosoting Engineer Name Role Phone TRACI CROOK MD Primary Care Physician [phone] Insurance Providers Payer Name Policy Number Subscriber [...] Encounters Encounter Location Date/Time Departed Emergency Room [facility] 04/19/14 2:00pm Departed Emergency Room [facility] 04/16/14 8:01pm Departed Emergency Room [facility] 04/13/14 5:01pm Departed Emergency Room [facility] 04/08/14 2:51pm Departed Emergency Room [facility] 03/02/14 1:55am Departed Emergency Room [facility] 01/29/14 11:26pm Departed Emergency Room [facility] 01/27/14 11:34pm Departed Emergency Room [facility] 01/25/14 6:23pm Registered Clinic [facility] 01/22/14 10:26am Departed Emergency Room [facility] 01/16/14 9:42am Departed Emergency Room [facility] 01/10/14 5:56pm Departed Emergency Room [facility] 01/09/14 11:54am Office Visit TRACI CROOK 01/09/14 10:30am Departed Emergency Room [facility] 01/08/14 8:00pm Departed Emergency Room [facility] 12/24/13 6:10pm Departed Emergency Room [facility] 12/22/13 9:50pm Departed Emergency Room [facility] 12/15/13 11:32am Departed Emergency Room [facility] 12/11/13 10:06pm Registered Clinic [facility] 11/21/13 11:19am Departed Emergency Room [facility] 11/16/13 8:55pm Departed Emergency Room [facility] 11/11/13 4:43pm Departed Emergency Room [facility] 11/05/13 4:02pm Office Visit TRACI CROOK 10/10/13 11:30am Departed Emergency Room [facility] 10/09/13 8:57am Departed Emergency Room [facility] 10/03/13 2:43am Departed Emergency Room [facility] 09/10/13 7:03pm Departed Emergency Room [facility] 09/03/13 10:42am Departed Emergency Room [facility] 08/04/13 9:16am Office Visit TRACI CROOK 07/08/13 2:15pm Office Visit TRACI CROOK 06/24/13 3:45pm Office Visit TRACI CROOK 05/13/13 2:00pm Departed Emergency Room [facility] 05/03/13 5:49pm Recent Diagnosis
--- OUTSIDE RECORDS SUMMARY | 2016-11-21 22:45 | XMS REPORT | Continuity of Care Document ---
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 Guest Services Representative Name Role Phone TRACI CROOK MD Primary Care Physician [phone] Insurance Providers Payer Name Policy Number Subscriber [...] Date/Time Departed Emergency Room [facility] 04/16/14 8:01pm Departed Emergency Room [facility] 04/13/14 5:01pm Departed Emergency Room [facility] 04/08/14 2:51pm Departed Emergency Room [facility] 03/02/14 1:55am Departed Emergency Room [facility] 01/29/14 [...] TRACI CROOK 05/13/13 2:00pm Departed Emergency Room [facility] 05/03/13 5:49pm Recent Diagnosis
--- OUTSIDE RECORDS SUMMARY | 2016-11-21 22:45 | XMS REPORT | Continuity of Care Document ---
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 Bacteriologist Industrial Name Role Phone TRACI CROOK MD Unavailable [phone] Insurance Providers Payer Name Policy Number Subscriber Name Relationship Self Pay Insurance Chief Complaint and Reason for Visit Chief Complaint Chest Pain Reason for Visit [id number] Chest wall pain Problems Medical Problems Problem [...] Encounters Encounter Location Date/Time Departed Emergency Room [facility] 01/16/14 9:42am Departed Emergency Room [facility] 01/10/14 5:56pm Departed Emergency Room [facility] 01/09/14 11:54am Office Visit TRACI CROOK 01/09/14 10:30am Departed Emergency Room [facility] 01/08/14 8:00pm Departed Emergency Room [facility] 12/24/13 6:10pm Departed Emergency Room [facility] 12/22/13 9:50pm Departed Emergency Room [facility] 12/15/13 11:32am Departed Emergency Room [facility] 12/11/13 10:06pm Registered Clinic [facility] 11/21/13 11:19am Departed Emergency Room [facility] 11/16/13 8:55pm Departed Emergency Room [facility] 11/11/13 4:43pm Departed Emergency Room [facility] 11/05/13 4:02pm Office Visit TRACI CROOK 10/10/13 11:30am Departed Emergency Room [facility] 10/09/13 8:57am Departed Emergency Room [facility] 10/03/13 2:43am Departed Emergency Room [facility] 09/10/13 7:03pm Departed Emergency Room [facility] 09/03/13 10:42am Departed Emergency Room [facility] 08/04/13 9:16am Office Visit TRACI CROOK 07/08/13 2:15pm Office Visit TRACI CROOK 06/24/13 3:45pm Office Visit TRACI CROOK 05/13/13 2:00pm Departed Emergency Room [facility] 05/03/13 5:49pm Office Visit TRACI CROOK 03/18/13 11:15am Office Visit TRACI CROOK 03/04/13 11:15am Recent Diagnosis
--- OUTSIDE RECORDS SUMMARY | 2016-11-21 22:46 | XMS REPORT | Continuity of Care Document ---
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 Quality Systems Specialist Name Role Phone TRACI CROOK MD Unavailable [phone] Insurance Providers Payer Name Policy Number Subscriber Name Relationship Self Pay Insurance Chief Complaint and Reason for Visit Chief Complaint Chest Pain Reason for Visit Atypical chest pain [id number] Problems Medical Problems Problem Onset Date Status [...] F (96.0 - 99.9) Temperature (Calculated Celsius) 36.24256 degrees C Temperature Source Oral Pulse Pulse [...] NONE SOURCE: URINE, CLEAN CATCH Urine Specific [place] January 27, 2014 11:59pm 1.025 1.005-1.030 SOURCE [...] Encounters Encounter Location Date/Time Departed Emergency Room [facility] 06/07/14 10:34am Departed Emergency Room [facility] 05/15/14 10:44am Registered Clinic [facility] 04/23/14 10:28am Departed Emergency Room [facility] 04/22/14 12:26am Departed Emergency Room [facility] 04/19/14 2:00pm Departed Emergency Room [facility] 04/16/14 8:01pm Departed Emergency Room [facility] 04/13/14 5:01pm Departed Emergency Room Julijuan Koe[facility] 04/08/14 2:51pm Departed Emergency Room Julijuan Koehler [facility] 03/02/14 1:55am Departed Emergency Room Ujlijuan Koehler [facility] 01/29/14 11:26pm Departed Emergency Room Julijuan Koe[facility] 01/27/14 11:34pm Departed Emergency Room Julij[facility] Koe[facility] 01/25/14 6:23pm Registered Clinic Juli BMadhuri Rodo [facility] 01/22/14 10:26am Departed Emergency Room Julijuan Koe[facility] 01/16/14 9:42am Departed Emergency Room Julij[facility] Koe[facility] 01/10/14 5:56pm Departed Emergency Room Julij[facility] Koe[facility] 01/09/14 11:54am Office Visit TRACI CROOK 01/09/14 10:30am Departed Emergency Room [facility] Koe[facility] 01/08/14 8:00pm Departed Emergency Room [facility] Koe[facility] 12/24/13 6:10pm Departed Emergency Room Julij[facility] Koe[facility] 12/22/13 9:50pm Departed Emergency Room Julij[facility] Koe[facility] 12/15/13 11:32am Departed Emergency Room Julij[facility] Koe[facility] 12/11/13 10:06pm Registered Clinic Juli BMadhuri Rodo [facility] 11/21/13 11:19am Departed Emergency Room Julijuan Koehler [facility] 11/16/13 8:55pm Departed Emergency Room Julijuan Koe[facility] 11/11/13 4:43pm Departed Emergency Room Julij[facility] Koe[facility] 11/05/13 4:02pm Office Visit TRACI CROOK 10/10/13 11:30am Departed Emergency Room Julijuan Koe[facility] 10/09/13 8:57am Departed Emergency Room Julij[facility] Koe[facility] 10/03/13 2:43am Departed [facility] 09/10/13 7:03pm Departed Emergency Room Juli BMadhuri Rodo [facility] 09/03/13 10:42am Departed Emergency Room Juli Koehler [facility] 08/04/13 9:16am Office Visit TRACI CROOK 07/08/13 2:15pm Office Visit TRACI CROOK 06/24/13 3:45pm Recent Diagnosis
--- OUTSIDE RECORDS SUMMARY | 2016-11-21 22:46 | XMS REPORT | Continuity of Care Document ---
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 Monitoring Engineer Name Role Phone TRACI CROOK MD Unavailable [phone] Insurance Providers Payer Name Policy Number Subscriber Name Relationship Self Pay Insurance Chief Complaint and Reason for Visit Chief Complaint Chest Pain Reason for Visit [id number] Chest wall pain Problems Medical Problems Problem [...] Encounter Location Date/Time Registered Clinic Juli Fl[facility] 01/22/14 10:26[facility]/16/14 9:42am [facility] 01/10/14 5:56pm [facility] 01/09/14 11:54am Office Visit TRCAI CROOK 01/09/14 10:30am [facility] 01/08/14 8:00pm Departed Emergency Room [facility] 12/24/13 6:10pm Departed Emergency Room [facility] 12/22/13 9:50pm Departed Emergency Room [facility] 12/15/13 11:32am Departed Emergency Room [facility] 12/11/13 10:06pm [facility] 11/21/13 11:19am [facility] 11/16/13 8:55pm Departed Emergency Room [facility] 11/11/13 4:43pm Departed Emergency Room [facility] 11/05/13 4:02pm Office Visit TRACI CROOK 10/10/13 11:30am [facility] 10/09/13 8:57am Departed Emergency Room [facility] 10/03/13 2:43am Departed Emergency Room [facility] 09/10/13 7:03pm Departed Emergency Room [facility] 09/03/13 10:42am Departed Emergency Room [facility] 08/04/13 9:16am Office Visit TRACI CROOK 07/08/13 2:15pm Office Visit TRACI COROK 06/24/13 3:45pm Office Visit TRACI CROOK 05/13/13 2:00pm Departed Emergency Room [facility] 05/03/13 5:49pm Office Visit TRACI CROOK 03/18/13 11:15am Office Visit TRACI CROOK 03/04/13 11:15am
--- OUTSIDE RECORDS SUMMARY | 2016-11-21 22:46 | XMS REPORT | Continuity of Care Document ---
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 Traffic Control Signaler Name Role Phone TRACI CROOK MD Primary Care Physician [phone] Insurance Providers Payer Name Policy Number Subscriber Name Relationship Self Pay Insurance RosettaVel mijaresLisa S 01 Self / Same As Patient Chief Complaint and Reason for Visit Chief Complaint Neck Pain Reason for Visit Malaise Cough [id number] Chronic neck pain Problems Medical Problems Problem [...] [facility] 04/13/14 5:01pm Departed Emergency Room [facility] 04/08/14 2:51pm Departed Emergency Room [facility] 03/02/14 1:55am Departed Emergency Room [facility] 01/29/14 11:26pm Departed Emergency Room [facility] 01/27/14 11:34pm Departed Emergency Room [facility] 01/25/14 6:23pm Registered Clinic [facility] 01/22/14 10:26am Departed Emergency Room [facility] 01/16/14 9:42am Departed Emergency Room [facility] 01/10/14 5:56pm Departed Emergency Room [facility] 01/09/14 11:54am Office Visit TRACI CROOK 01/09/14 10:30am Departed Emergency Room [facility] 01/08/14 8:00pm Departed Emergency Room [facility] 12/24/13 6:10pm Departed Emergency Room Juli Flako [facility] 12/22/13 9:50pm Departed Emergency Room Juli Flako [facility] 12/15/13 11:32am Departed Emergency Room [place] Fl[facility] 12/11/13 10:06pm Registered Clinic [facility] 11/21/13 11:19am [facility] 11/16/13 8:55pm Departed Emergency Room [place] Flako [facility] 11/11/13 4:43pm [facility] 11/05/13 4:02pm Office Visit TRACI CROOK 10/10/13 11:30am [facility] 10[facility]09/13 8:57am [facility] 10/03/13 2:43am Departed Emergency Room [facility] 09/10/13 7:03pm [facility] 09/03/13 10:42am Departed Emergency Room [place] [facility] 08/04/13 9:16am Office Visit TRACI CROOK 07/08/13 2:15pm Office Visit TRACI CROOK 06/24/13 3:45pm Office Visit TRACI CROOK 05/13/13 2:00pm Departed Emergency Room [place] [facility] 05/03/13 5:49pm Recent Diagnosis
--- OUTSIDE RECORDS SUMMARY | 2016-11-21 22:46 | XMS REPORT | Continuity of Care Document ---
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 Airplane Pilot Name Role Phone TRACI CROOK MD Primary Care Physician [phone] Insurance Providers Payer Name Policy Number Subscriber [...] Intermediate RASH, REDNESS Active 09/14/14 Poison Adina/Poison [place] Extract Allergy Unknown Active 09/14/14 Immunizations No immunization records. Vital Signs Acute Vital Signs Vital Response Date/Time Blood Pressure 121/67 mm Hg Blood Pressure Mean 85 mm Hg Temperature (Fahrenheit) 97.8 degrees F (96.0 - 99.9) Temperature (Calculated Celsius) 36.19675 degrees C Temperature Source Oral Pulse Pulse [...] NONE SOURCE: URINE, CLEAN CATCH Urine Specific [place] September 14, 2014 8:20am >=1.030 1.005-1.030 SOURCE: [...] into soft tissue (procedure) completed 07/03/14 NEGRO QUIJNAO M.D. THER/PROPH/DIAG INJ IV PUSH completed 09/14/14 [...] INJ IV PUSH completed 12/24/13 LUZ ELENA SIMTH M.D. HYDRATE IV INFUSION ADD-ON completed 12/24/13 [...] Encounters Encounter Location Date/Time Departed Emergency Room [facility] 09/19/14 9:54am Departed Emergency Room [facility] 09/14/14 8:03am Departed Emergency Room Julijuan Koehler [facility] 09/02/14 2:56pm Departed Emergency Room Julijuan Koehler [facility] 08/02/14 1:09pm Departed Emergency Room Julijuan Koehler [facility] 07/03/14 10:05pm Departed Emergency Room Julijuan Koehler [facility] 06/07/14 10:34am Departed Emergency Room Julijuan Koehler [facility] 05/15/14 10:44am Registered Clinic Julijuan Koehler [facility] 04/23/14 10:28am Departed Emergency Room Julijuan Koehler [facility] 04/22/14 12:26am Departed Emergency Room Julijuan Koehler [facility] 04/19/14 2:00pm Departed Emergency Room Julijuan Koehler [facility] 04/16/14 8:01pm Departed Emergency Room Julijuan Koehler [facility] 04/13/14 5:01pm Departed Emergency Room Julijuan Koehler [facility] 04/08/14 2:51pm Departed Emergency Room Julijuan Koehler [facility] 03/02/14 1:55am Departed Emergency Room Julijuan Koehler [facility] 01/29/14 11:26pm Departed Emergency Room Julijuan Koehler [facility] 01/27/14 11:34pm Departed Emergency Room Julijuan Koehler [facility] 01/25/14 6:23pm Registered Clinic Julijuan Koehler [facility] 01/22/14 10:26am Departed Emergency Room Julijuan Koehler [facility] 01/16/14 9:42am Departed Emergency Room Julijuan Koehler [facility] 01/10/14 5:56pm Departed Emergency Room Julijuan Koehler [facility] 01/09/14 11:54am Office Visit TRACI CROOK 01/09/14 10:30am Departed Emergency Room Julijuan Koehler [facility] 01/08/14 8:00pm Departed Emergency Room Julijuan Koehler [facility] 12/24/13 6:10pm Departed Emergency Room Julijuan Koehler [facility] 12/22/13 9:50pm Departed Emergency Room Julijuan Koehler [facility] 12/15/13 11:32am Departed Emergency Room [facility] 12/11/13 10:06pm Registered Clinic [facility] 11/21/13 11:19am Departed Emergency Room [facility] 11/16/13 8:55pm Departed Emergency Room [facility] 11/11/13 4:43pm Departed Emergency Room [facility] 11/05/13 4:02pm Office Visit TRACI CROOK 10/10/13 11:30am Departed Emergency Room [facility] 10/09/13 8:57am Departed Emergency Room [facility] 10/03/13 2:43am Recent Diagnosis Anemia chronic
--- OUTSIDE RECORDS SUMMARY | 2016-11-21 22:46 | XMS REPORT | Continuity of Care Document ---
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 Severity Of Illness Coordinator Name Role Phone TRACI CROOK MD Primary Care Physician [phone] Insurance Providers Payer Name Policy Number Subscriber [...] F (96.0 - 99.9) Temperature (Calculated Celsius) [id number] degrees C Temperature Source Oral Pulse Pulse [...] NONE SOURCE: URINE, CLEAN CATCH Urine Specific [place] January 27, 2014 11:59pm 1.025 1.005-1.030 SOURCE [...] Location Date/Time Registered Emergency Room Juli Koehler [facility] 04/22/14 12:26am Departed Emergency Room Juli Koehler [facility] 04/19/14 2:00pm Departed Emergency Room Julijuan Koehler [facility] 04/16/14 8:01pm Departed Emergency Room Juli BMadhuri Rodo [facility] 04/13/14 5:01pm Departed Emergency Room Julijuan Koehler [facility] 04/08/14 2:51pm Departed Emergency Room Julijuan Koehler [facility] 03/02/14 1:55am Departed Emergency Room Juli BMadhuri Rodo [facility] 01/29/14 11:26pm Departed Emergency Room Juli BMadhuri Rodo [facility] 01/27/14 11:34pm Departed Emergency Room Juli BMadhuri Rodo [facility] 01/25/14 6:23pm Registered Clinic Julijuan Koehler [facility] 01/22/14 10:26am Departed Emergency Room Juli BMadhuri Rodo [facility] 01/16/14 9:42am Departed Emergency Room Juli BMadhuri Rodo [facility] 01/10/14 5:56pm Departed Emergency Room Juli BMadhuri Rodo [facility] 01/09/14 11:54am Office Visit TRACI CROOK 01/09/14 10:30am Departed Emergency Room Juli BMadhuri Rodo [facility] 01/08/14 8:00pm Departed Emergency Room Juli BMadhuri Rodo [facility] 12/24/13 6:10pm Departed Emergency Room Juli BMadhuri Rodo [facility] 12/22/13 9:50pm Departed Emergency Room Juli BMadhuri Rodo [facility] 12/15/13 11:32am Departed Emergency Room Julijuna Koehler [facility] 12/11/13 10:06pm Registered Clinic Julijuan Koehler [facility] 11/21/13 11:19am Departed Emergency Room Juli BMadhuri Rodo [facility] 11/16/13 8:55pm Departed Emergency Room Juli B. Rodo [facility] 11/11/13 4:43pm Departed Emergency Room Juli Flako Rodo [facility] 11/05/13 4:02pm Office Visit TRACI CROOK 10/10/13 11:30am Departed Emergency Room Julijuan Koehler [facility] 10/09/13 8:57am Departed Emergency Room Juli B. Rodo [facility] 10/03/13 2:43am Departed Emergency Room Juli Koehler [facility] 09/10/13 7:03pm Departed Emergency Room [facility] 09/03/13 10:42am Departed Emergency Room Julijuan Koehlre [facility] 08/04/13 9:16am Office Visit TRACI CROOK 07/08/13 2:15pm Office Visit TRACI CROOK 06/24/13 3:45pm Office Visit TRACI CROOK 05/13/13 2:00pm Departed Emergency Room [facility] 05/03/13 5:49pm Recent Diagnosis
--- OUTSIDE RECORDS SUMMARY | 2016-11-21 22:46 | XMS REPORT | Continuity of Care Document ---
Author Author [facility] Organization [facility] Address Unknown Phone Unavailable Allergies Active Description [...] Procedures Code [place] [address] THER/PROPH/DIAG INJ, SC/IM ELAINE SCHERER MD 05/29/2015 [id number] EMERGENCY DEPT VISIT ELAINE SCHERER MD 05/29/2015 [id number] KETOROLAC TROMETHAMINE INJ ELAINE SCHERER MD 05/29/2015 [id number] ROUTINE VENIPUNCTURE CHAR RICK 10/16/2015 72788 CHEST X-RAY CHAR [facility]ICK 10/16/2015 35236 X-RAY EXAM OF ABDOMEN CHAR RICK 10/16/2015 81005 COMPREHEN METABOLIC PANEL CHAR RICK 10/16/2015 68247 ASSAY OF TROPONIN, QUANT CHAR RICK 10/16/2015 14835 COMPLETE CBC, AUTOMATED CHAR RICK 10/16/2015 67824 STREP A ASSAY W/OPTIC CHAR RICK 10/16/2015 01411 ELECTROCARDIOGRAM, TRACING CHAR RICK 10/16/2015 83466 EMERGENCY DEPT VISIT CHAR RICK 10/16/2015 Results Test Result Range CBC - 10/16/15 14:52 Eos # 0.30 x10^3 0-0.5 Eos % 5.7 % 0-4 HCT 32.6 % 37.0-47.0 HGB 10.0 G/DL 12.0-16.0 Lymph # 1.88 x10^3 1.0-4.0 Lymph % 36.0 % 20-50 MCH 22.4 PG 27.0-31.0 MCHC 30.7 G/DL 32.0-36.0 MCV 72.9 FL 81-99 Bates # 0.68 x10^3 0.0-0.8 Bates % 13.0 % 1.0-9.0 MPV 9.4 FL [...] Status Pt. Type Provider Facility Loc./Unit Complaint [id number] 10/16/2015 13:09:00 10/16/2015 14:41:00 [id number]/29/2015 21:26:00 05/29/2015 22:27:00 DIS Emergency GILMER ANDREA, ELAINE Hernandez [facility] ER
--- OUTSIDE RECORDS SUMMARY | 2016-11-21 22:47 | XMS REPORT | Continuity of Care Document ---
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 Job Counselor Name Role Phone TRACI CROOK MD Primary Care Physician [phone] Insurance Providers Payer Name Policy Number Subscriber [...] F (96.0 - 99.9) Temperature (Calculated Celsius) 36.78620 degrees C Temperature Source Oral Pulse Pulse [...] NONE SOURCE: URINE, CLEAN CATCH Urine Specific [place] January 27, 2014 11:59pm 1.025 1.005-1.030 SOURCE [...] Encounter Location Date/Time Registered Clinic Juli Koehler [facility] 04/23/14 10:28am Departed Emergency Room Juli Koehler [facility] 04/22/14 12:26am Departed Emergency Room Julijuan Koehler [facility] 04/19/14 2:00pm Departed Emergency Room Julijuan Koehler [facility] 04/16/14 8:01pm Departed Emergency Room Julijuan Koehler [facility] 04/13/14 5:01pm Departed Emergency Room Julijuan Koehler [facility] 04/08/14 2:51pm Departed Emergency Room Julijuan Koehler [facility] 03/02/14 1:55am Departed Emergency Room Julijuan Koehler [facility] 01/29/14 11:26pm Departed Emergency Room Julijuan Koehler [facility] 01/27/14 11:34pm Departed Emergency Room Julijuan Koehler [facility] 01/25/14 6:23pm Registered Clinic Juli BMadhuri Rodo [facility] 01/22/14 10:26am Departed Emergency Room Julijuan Koehler [facility] 01/16/14 9:42am Departed Emergency Room Julijuan Koehler [facility] 01/10/14 5:56pm Departed Emergency Room Julijuan Koehler [facility] 01/09/14 11:54am Office Visit TRACI CROOK 01/09/14 10:30am Departed Emergency Room Julijuan Koehler [facility] 01/08/14 8:00pm Departed Emergency Room Julijuan Koehler [facility] 12/24/13 6:10pm Departed Emergency Room Julijuan Koehler [facility] 12/22/13 9:50pm Departed Emergency Room Julijuan Koehler [facility] 12/15/13 11:32am Departed Emergency Room Julijuan Koehler [facility] 12/11/13 10:06pm Registered Clinic Juli BMadhuri Rodo [facility] 11/21/13 11:19am Departed Emergency Room Julijuan Koehler [facility] 11/16/13 8:55pm Departed Emergency Room Julijuan Koehler [facility] 11/11/13 4:43pm Departed Emergency Room Julijuan Koehler [facility] 11/05/13 4:02pm Office Visit TRACI CROOK 10/10/13 11:30am Departed Emergency Room Julijuan Koehler [facility] 10/09/13 8:57am Departed Emergency Room Juli Koehler [facility] 10/03/13 2:43am Departed Emergency Room Juli Koehler [facility] 09/10/13 7:03pm Departed Emergency Room Julijuan Koehler [facility] 09/03/13 10:42am Departed Emergency Room Juli Koehler [facility] 08/04/13 9:16am Office Visit TRACI CROOK 07/08/13 2:15pm Office Visit TRACI CROOK 06/24/13 3:45pm Office Visit TRACI CROOK 05/13/13 2:00pm Departed Emergency Room Julijuan Koehler [facility] 05/03/13 5:49pm
--- OUTSIDE RECORDS SUMMARY | 2016-11-21 22:47 | XMS REPORT | Continuity of Care Document ---
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 Community Associate Name Role Phone TRACI CROOK MD Primary Care Physician [phone] Insurance Providers Payer Name Policy Number Subscriber Name Relationship Workers Compensation [id number] CarlineLisa Sumeet 08 Employee Chief Complaint and [...] F (96.0 - 99.9) Temperature (Calculated Celsius) 36.71361 degrees C Temperature Source Oral Pulse Pulse [...] NONE SOURCE: URINE, CLEAN CATCH Urine Specific [place] November 03, 2014 9:00pm 1.020 1.005-1.030 SOURCE [...] Location Date/Time Departed Emergency Room Juli Koehler [facility] 11/03/14 8:37pm Departed Emergency Room Juli Koehler [facility] 09/19/14 9:54am Departed Emergency Room Juli BMadhuri Rodo [facility] 09/14/14 8:03am Departed Emergency Room Juli BMadhuri Rodo [facility] 09/02/14 2:56pm Departed Emergency Room Julijuan Koehler [facility] 08/02/14 1:09pm Departed Emergency Room Juli BMadhuri Rodo [facility] 07/03/14 10:05pm Departed Emergency Room Juli Flako Rodo [facility] 06/07/14 10:34am Departed Emergency Room Juli BMadhuri Rodo [facility] 05/15/14 10:44am Registered Clinic Juli BMadhuri [facility] 04/23/14 10:28am Departed Emergency Room Juli BMadhuri [facility] 04/22/14 12:26am Departed Emergency Room Juli BMadhuri Rodo [facility] 04/19/14 2:00pm Departed Emergency Room Juli BMadhuri [facility] 04/16/14 8:01pm Departed Emergency Room Juli BMadhuri [facility] 04/13/14 5:01pm Departed Emergency Room Juli BMadhuri Ordo [facility] 04/08/14 2:51pm Departed Emergency Room Juli BMadhuri [facility] 03/02/14 1:55am Departed Emergency Room Juli BMadhuri Rodo [facility] 01/29/14 11:26pm Departed Emergency Room Juli BMdahuri Rodo [facility] 01/27/14 11:34pm Departed Emergency Room Juli Flako Rodo [facility] 01/25/14 6:23pm Registered Clinic Julijuan Koehler [facility] 01/22/14 10:26am Departed Emergency Room Juli BMadhuri [facility] 01/16/14 9:42am Departed Emergency Room Juli BMadhuri [facility] 01/10/14 5:56pm Departed Emergency Room [facility] 01/09/14 11:54am Office Visit TRACI CROOK 01/09/14 10:30am Departed Emergency Room Julijuan Koehler [facility] 01/08/14 8:00pm Departed Emergency Room [facility] 12/24/13 6:10pm Departed Emergency Room [facility] 12/22/13 9:50pm Departed Emergency Room [facility] 12/15/13 11:32am Departed Emergency Room [facility] 12/11/13 10:06pm Registered Clinic [facility] 11/21/13 11:19am Departed Emergency Room [facility] 11/16/13 8:55pm Departed Emergency Room [facility] 11/11/13 4:43pm Departed Emergency Room [facility] 11/05/13 4:02pm Recent Diagnosis
--- OUTSIDE RECORDS SUMMARY | 2016-11-21 22:47 | XMS REPORT | Continuity of Care Document ---
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 Rabies Inspector Name Role Phone TRACI CROOK MD Unavailable [phone] Insurance Providers Payer Name Policy Number Subscriber [...] F (96.0 - 99.9) Temperature (Calculated Celsius) 36.21107 degrees C Temperature Source Oral Pulse Pulse [...] NONE SOURCE: URINE, CLEAN CATCH Urine Specific [place] January 27, 2014 11:59pm 1.025 1.005-1.030 SOURCE [...] Encounters Encounter Location Date/Time Departed Emergency Room [facility] 07/03/14 10:05pm Departed Emergency Room [facility] 06/07/14 10:34am Departed Emergency Room [facility] 05/15/14 10:44am Registered Clinic [facility] 04/23/14 10:28am Departed Emergency Room Julijuan Koehler [facility] 04/22/14 12:26am Departed Emergency Room Julijuan Koehler [facility] 04/19/14 2:00pm Departed Emergency Room Julijuan Koehler [facility] 04/16/14 8:01pm Departed Emergency Room Julijuan Koehler [facility] 04/13/14 5:01pm Departed Emergency Room Juli BMadhuri Rodo [facility] 04/08/14 2:51pm Departed Emergency Room Julijuan Koehler [facility] 03/02/14 1:55am Departed Emergency Room Ujlijuan Koehler [facility] 01/29/14 11:26pm Departed Emergency Room Julijuan Koehler [facility] 01/27/14 11:34pm Departed Emergency Room Julijuan Koehler [facility] 01/25/14 6:23pm Registered Clinic Juli BMadhuri Rodo [facility] 01/22/14 10:26am Departed Emergency Room Julijuan Koehler [facility] 01/16/14 9:42am Departed Emergency Room Julijuan Koehler [facility] 01/10/14 5:56pm Departed Emergency Room Julijuan Koehler [facility] 01/09/14 11:54am Office Visit TRACI CROOK 01/09/14 10:30am Departed Emergency Room Julijuan Koehler [facility] 01/08/14 8:00pm Departed Emergency Room Julijuan Koehler [facility] 12/24/13 6:10pm Departed Emergency Room Juli BMadhuri Rodo [facility] 12/22/13 9:50pm Departed Emergency Room Juli BMadhuri Rodo [facility] 12/15/13 11:32am Departed Emergency Room Julijuan Koehler [facility] 12/11/13 10:06pm Registered Clinic Juli BMadhuri Rodo [facility] 11/21/13 11:19am Departed Emergency Room Juli BMadhuri Rodo [facility] 11/16/13 8:55pm Departed Emergency Room Juli BMadhuri Rodo [facility] 11/11/13 4:43pm Departed Emergency Room Juli Flako Rodo [facility] 11/05/13 4:02pm Office Visit TRACI CROOK 10/10/13 11:30am Departed Emergency Room [facility] 10/09/13 8:57am [facility] 7:[facility] 10:42am Departed Emergency Room [facility] 08/04/13 9:16am Office Visit TRACI CROOK 07/08/13 2:15pm Recent Diagnosis
[2016-11-21 23:15] VITALS: BP 148/67; PULSE 84; RESP 20; TEMP 97.6; O2SAT 99
--- NOTE | 2016-11-21 23:15 | NUR ---
DEPART PT IS GIVEN DISMISSAL INSTRUCTIONS WITH VERBAL UNDERSTANDING. PT IS GIVEN SCRIPTS X2. PT LEAVES AMBULATORY TO ED EXIT
== END 2016-11-21 23:15 | disposition home or self-care (01) ==
LOC: ED 22:24
DX: K08.89 Other specified disorders of teeth and supporting structures (principal)